=== PATIENT | female | born 1970 | race Caucasian/White ===

== ENCOUNTER 2017-02-11 00:16 | Observation (INO) | payer OTHER ==
--- NOTE | 2017-02-11 01:03 | PDOC ---
History of Present Illness - History of Present Illness Initial Comments: 02/11/17 01:51 The patient is a 46 year old female, with no significant past medical history of anemia, who presents to the emergency department with headache, dizziness, and nausea lasting for a constant 4 hours today. The patient reports a similar experience about 2 weeks ago. She reports her last menstrual period was a month ago. She denies chest pain and shortness of breath. She denies fever, chills, nausea , vomit, diarrhea and constipation. She denies dysuria, frequency, urgency and hematuria. Allergies: NKDA <Mari Gallegos - Last Filed: 02/11/17 01:51> <Shaye Escamilla - Last Filed: 02/11/17 05:36> - General Chief Complaint: Headache Stated Complaint: DIZZINESS AND HEADACHE Time Seen by Provider: 02/11/17 01:02 Past History <Mari Gallegos - Last Filed: 02/11/17 01:51> - Past Medical History Suicide Attempt (Hx): No - Immunization History Td Vaccination: Yes Immunization Up to Date: Yes - Psycho/Social/Smoking Cessation Hx Anxiety: No Suicidal Ideation: No Smoking Status: No Smoking History: Never smoked Years of Tobacco Use: 0 Have you smoked in the past 12 months: No Number of Cigarettes Smoked Daily: 0 Cigars Per Day: 0 Information on smoking cessation initiated: No Hx Alcohol Use: Yes (occasional) Substance Use Type: None <Shaye Escamilla - Last Filed: 02/11/17 05:36> - Past Medical History Allergies/Adverse Reactions: Allergies Allergy/AdvReac Type Severity Reaction Status Date / Time No Known Allergies Allergy Verified 02/11/17 00:55 Home Medications: Ambulatory Orders No Home Medications 0 dose .ROUTE KYDICT 07/25/13 Review of Systems - Review of Systems Able to Perform ROS?: Yes Comments:: 02/11/17 01:52 GENERAL/CONSTITUTIONAL: No fever or chills. No weakness. HEAD, EYES, EARS, NOSE AND THROAT: No change in vision. No ear pain or discharge. No sore throat. CARDIOVASCULAR: No chest pain or shortness of breath. RESPIRATORY: No cough, wheezing, or hemoptysis. GASTROINTESTINAL: (+) nausea, No vomiting, diarrhea or constipation. GENITOURINARY: No dysuria, frequency, or change in urination. MUSCULOSKELETAL: No joint or muscle swelling or pain. No neck or back pain. SKIN: No rash NEUROLOGIC: (+) headache and vertigo, No loss of consciousness, or change in strength/sensation. ENDOCRINE: No increased thirst. No abnormal weight change. HEMATOLOGIC/LYMPHATIC: No anemia, easy bleeding, or history of blood clots. ALLERGIC/IMMUNOLOGIC: No hives or skin allergy. <Mari Gallegos - Last Filed: 02/11/17 01:51> *Physical Exam - Vital Signs Last Vital Signs Temp Pulse Resp BP Pulse Ox 98 F 80 18 113/81 100 02/11/17 00:53 02/11/17 00:53 02/11/17 00:53 02/11/17 00:53 02/11/17 00:53 - Physical Exam Comments: 02/11/17 01:52 GENERAL: Awake, alert, and fully oriented, in no acute distress HEAD: No signs of trauma EYES: PERRLA, EOMI, sclera anicteric, conjunctiva clear ENT: Auricles normal inspection, hearing grossly normal, nares patent, oropharynx clear without exudates. Moist mucosa NECK: Normal ROM, supple, no lymphadenopathy, JVD, or masses LUNGS: Breath sounds equal, clear to auscultation bilaterally. No wheezes, and no crackles HEART: Regular rate and rhythm, normal S1 and S2, no murmurs, rubs or gallops ABDOMEN: Soft, nontender, normoactive bowel sounds. No guarding, no rebound. No masses EXTREMITIES: Normal range of motion, no edema. No clubbing or cyanosis. No cords, erythema, or tenderness NEUROLOGICAL: Cranial nerves II through XII grossly intact. Normal speech, normal gait SKIN: Warm, Dry, normal turgor, no rashes or lesions noted. <Mari Gallegos - Last Filed: 02/11/17 01:51> - Vital Signs Last Vital Signs Temp Pulse Resp BP Pulse Ox 98 F 80 18 113/81 100 02/11/17 00:53 02/11/17 00:53 02/11/17 00:53 02/11/17 00:53 02/11/17 00:53 <Shaye Escamilla - Last Filed: 02/11/17 05:36> ED Treatment Course - LABORATORY CBC & Chemistry Diagram: 02/11/17 02:36 02/11/17 02:36 <Shaye Escamilla - Last Filed: 02/11/17 05:36> Medical Decision Making - Medical Decision Making 02/11/17 05:32 Pt is dizzy with symptomatic anemia. She will be admitted to the hospitalist. Her PMD is Aimee Rosen who admits to the hospitalist. Pt has a BHCG of 93; pt was unaware that she is . She doesn't want to keep the fetus she states. However at this time, we will cancel head CT and not order CXR. Pt also smells of alcohol; alcohol level has not been completed, as we do not have the reagent in our lab; it will be followed up on the floor. Pt accepted by Dr. Post, hospitalist. <Shaye Escamilla - Last Filed: 02/11/17 05:36> *DC/Admit/Observation/Transfer - Attestations Scribe Attestion: 02/11/17 01:52 Documentation prepared by Mari Gallegos, acting as medical imaging director for Shaye Escamilla MD <Mari Gallegos - Last Filed: 02/11/17 01:51> - Discharge Dispostion Admit: Yes <Shaye Escamilla - Last Filed: 02/11/17 05:36> Diagnosis at time of Disposition: Dizziness, Anemia, - Discharge Dispostion Condition at time of disposition: Guarded - Referrals Referrals: Dianna Carnes MD [Primary Care Provider] -
[2017-02-11] MEDS ORDERED: MECLIZINE HCL 25 MG TABLET (FP) PO ONE (01:48)
[2017-02-11] MEDS ORDERED: ONDANSETRON 4 MG/2 ML VIAL IVPB ONE (01:49)
[2017-02-11] MEDS ORDERED: ACETAMINOPHEN/CAFFEINE/BUTALBITAL 1 TAB PO ONE (01:50)
[2017-02-11] MEDS ORDERED: ACETAMINOPHEN/CAFFEINE/BUTALBITAL 1 TAB ONE (01:56)
[2017-02-11] MEDS ORDERED: MECLIZINE HCL 25 MG TABLET (FP) ONE (01:59)
[2017-02-11 02:44] LABS: EOSINOPHIL 0.7 % (0-4.5); MCHC 29.9 g/dl (32.0-36.0); MEAN CELL VOLUME 66.4 fl (80-96); MEAN PLT VOLUME 8.7 fl (7.5-11.1); NEUTROPHILS 73.3 % (42.8-82.8); PLATELET COUNT 354 K/MM3 (134-434); WHITE BLOOD COUNT 8.1 K/mm3 (4.0-10.0)
[2017-02-11 02:47] LABS: MCH 19.8 pg (25.7-33.7)
[2017-02-11] MEDS: SODIUM CHLORIDE 0.9% 500 ML INFUS.BAG IV ONE ×2 (02:52→04:26)
[2017-02-11 03:15] LABS: ALBUMIN 3.6 g/dl (3.4-5.0); ALK PHOS 41 U/L (45-117); ANION GAP 14 (8-16); BILIRUBIN,TOTAL 0.1 mg/dL (0.2-1.0); CALCIUM 8.3 mg/dL (8.5-10.1); CO2 21 mmol/L (21-32); CREATININE 0.4 mg/dL (0.55-1.02); GLUCOSE,RANDOM 111 mg/dL (74-106); SGPT/ALT 16 U/L (12-78); TOT PROT 6.7 g/dl (6.4-8.2)
[2017-02-11 03:17] LABS: SGOT/AST 19 U/L (15-37)
[2017-02-11 03:24] LABS: ANISOCYTOSIS 2+; HYPOCHROMIA 2+; MICROCYTOSIS 2+; PLATELET COMMENT2 NO CLOTTING DETECTED; PLATELET ESTIMATE ADEQUATE (NORMAL); POIKILOCYTOSIS 2+; POLYCHROMASIA 1+; SPHEROCYTE 1+
[2017-02-11 04:44] LABS: URINE APPEARANCE CLEAR; URINE BILIRUBIN NEGATIVE (NEGATIVE); URINE BLOOD NEGATIVE (NEGATIVE); URINE COLOR COLORLESS; URINE GLUCOSE (UA) NEGATIVE (NEGATIVE); URINE KETONE TRACE (NEGATIVE); URINE LEUK ESTERASE NEGATIVE (NEGATIVE); URINE NITRITE NEGATIVE (NEGATIVE); URINE PROTEIN NEGATIVE (NEGATIVE); URINE UROBILINOGEN NEGATIVE E.U./dl (0.2-1.0)
--- NOTE | 2017-02-11 06:01 | HP ---
PCP: Dianna Hernandez CHIEF COMPLAINT: Dizziness HISTORY OF PRESENT ILLNESS: This is a 46-year-old woman who comes to the ER complaining of nausea, dizziness and headache. She says she had been drinking at her daughter's baby shower yesterday. Overnight, she developed nausea, dizziness and headache. She smells of alcohol. She denies alcohol abuse, fever, chills, chest pain, shortness of breath, vomiting, melena, rectal bleeding, hematuria. She has a history of iron deficiency anemia and is unable to take oral iron because of side effects. She has not seen a physician in about one year. She does not know her baseline hemoglobin. She has regular periods and says her last was one month ago. She has no appetite and has lost 5 lbs over the past year. She has never had an EGD or colonoscopy. PAST MEDICAL HISTORY Anemia PAST SURGICAL HISTORY Denies Allergies No Known Allergies Allergy (Verified 02/11/17 00:55) HOME MEDICATIONS 3 Medication Instructions Recorded No Home Medications 0 dose .ROUTE UTDICT 07/25/13 Social History: Smoking: Denies Alcohol: Social Drugs: Denies Recent Travel: No Family History: Unremarkable REVIEW OF SYSTEMS CONSTITUTIONAL: Present: loss of appetite, weight loss. Absent: fever, chills, diaphoresis, generalized weakness, malaise HEENT: Absent: rhinorrhea, nasal congestion, throat pain, throat swelling, difficulty swallowing, mouth swelling, ear pain, eye pain, visual changes CARDIOVASCULAR: Present: lightheadedness. Absent: chest pain, syncope, palpitations, peripheral edema RESPIRATORY: Absent: cough, shortness of breath, dyspnea with exertion, orthopnea, wheezing, stridor, hemoptysis GASTROINTESTINAL: Present: epigastric pain, nausea. Absent: abdominal distension, vomiting, diarrhea, constipation, melena, hematochezia GENITOURINARY: Absent: dysuria, frequency, urgency, hesitancy, hematuria, flank pain MUSCULOSKELETAL: Absent: myalgia, arthralgia, joint swelling, back pain, neck pain SKIN: Absent: rash, itching, pallor HEMATOLOGIC/IMMUNOLOGIC: Absent: easy bleeding, easy bruising, lymphadenopathy, frequent infections ENDOCRINE: Present: unexplained weight loss. Absent: unexplained weight gain, heat intolerance, cold intolerance NEUROLOGIC: Present: headache, dizziness. Absent: focal weakness, paresthesias , unsteady gait, seizure, mental status changes, bladder or bowel incontinence PSYCHIATRIC: Absent: anxiety, depression, suicidal or homicidal ideation, hallucinations. PHYSICAL EXAMINATION Vital Signs - 24 hr 02/11/17 02/11/17 00:53 03:26 Temperature 98 F Pulse Rate 80 Pulse Rate [ 74 Right Radial] Respiratory 18 20 Rate Blood Pressure 113/81 Blood Pressure 100/63 [Right Arm] O2 Sat by Pulse 100 100 Oximetry (%) GENERAL: Awake, alert, in no acute distress. Alcohol on breath. HEAD: Normal with no signs of trauma. EYES: Pupils equal, round and reactive to light, extraocular movements intact, sclerae anicteric, conjunctivae pale. EARS, NOSE, THROAT: Ears normal, nares patent, oropharynx clear without exudates. Moist mucous membranes. NECK: Normal range of motion, supple without lymphadenopathy, JVD, or masses. LUNGS: Breath sounds equal, clear to auscultation bilaterally. No wheezes, and no crackles. No accessory muscle use. HEART: Regular rate and rhythm, normal S1 and S2 without murmur, rub or gallop. ABDOMEN: Soft, (+) epigastric tenderness, not distended, normoactive bowel sounds, no guarding, no rebound, no masses. No hepatomegaly or splenomegaly. MUSCULOSKELETAL: Normal range of motion at all joints. No bony deformities or tenderness. No CVA tenderness. UPPER EXTREMITIES: 2+ pulses, warm, well-perfused. No cyanosis. No clubbing. No peripheral edema. LOWER EXTREMITIES: 2+ pulses, warm, well-perfused. No calf tenderness. No peripheral edema. NEUROLOGICAL: Cranial nerves II-XII intact. Normal speech. Gait not observed. PSYCHIATRIC: Cooperative. Good eye contact. Appropriate mood and affect. SKIN: Warm, dry, normal turgor, no rashes or lesions noted, normal capillary refill. Laboratory Results - last 24 hr 02/11/17 02/11/17 02/11/17 02:35 02:36 02:36 WBC 8.1 RBC 3.68 Hgb 7.3 L D Hct 24.4 L D MCV 66.4 L MCHC 29.9 L RDW 19.0 H Plt Count 354 D MPV 8.7 Neutrophils % 73.3 Lymphocytes % 19.7 Monocytes % 5.3 Eosinophils % 0.7 D Basophils % 1.0 Differential Comment Slide scanned Platelet Estimate Adequate Platelet Comment No clotting detected Polychromasia 1+ Hypochromic-Microcytic 2+ Poikilocytosis 2+ Anisocytosis 2+ Microcytosis 2+ Spherocytes 1+ Sodium 142 Potassium 3.8 Chloride 107 Carbon Dioxide 21 Anion Gap 14 BUN 6 L D Creatinine 0.4 L D Creat Clearance w eGFR > 60 Random Glucose 111 H D Calcium 8.3 L Total Bilirubin 0.1 L D AST 19 D ALT 16 D Alkaline Phosphatase 41 L D Total Protein 6.7 Albumin 3.6 Beta HCG, Quant 93.9 Serum , Qual Urine Color Urine Appearance Urine pH Ur Specific [place] Urine Protein Urine Glucose (UA) Urine Ketones Urine Blood Urine Nitrite Urine Bilirubin Urine Urobilinogen Ur Leukocyte Esterase Urine HCG, Qual 02/11/17 02/11/17 02:36 04:20 WBC RBC Hgb Hct MCV MCHC RDW Plt Count MPV Neutrophils % Lymphocytes % Monocytes % Eosinophils % Basophils % Differential Comment Platelet Estimate Platelet Comment Polychromasia Hypochromic-Microcytic Poikilocytosis Anisocytosis Microcytosis Spherocytes Sodium Potassium Chloride Carbon Dioxide Anion Gap BUN Creatinine Creat Clearance w eGFR Random Glucose Calcium Total Bilirubin AST ALT Alkaline Phosphatase Total Protein Albumin Beta HCG, Quant Serum , Qual Positive Urine Color Colorless Urine Appearance Clear Urine pH 5.0 Ur Specific [place] 1.005 Urine Protein Negative Urine Glucose (UA) Negative Urine Ketones Trace H Urine Blood Negative Urine Nitrite Negative Urine Bilirubin Negative Urine Urobilinogen Negative Ur Leukocyte Esterase Negative Urine HCG, Qual Positive ASSESSMENT/PLAN: This is a 46-year-old woman with a history of iron-deficiency anemia who comes to the ER with nausea, dizziness and headache after drinking at a republican. She was found to have hemoglobin 7.3, serum B-hCG 93.9. She is being placed in observation now for further evaluation and treatment. 1. Nausea, dizziness, headache - Likely secondary to alcohol intoxication - Doubt secondary to anemia as she appears to be compensated with no tachycardia, fatigue, exertional dyspnea - IV fluid, IV Pepcid, Reglan as needed 2. Iron-deficiency anemia - Patient says she cannot tolerate oral iron - No evidence of active bleeding - Check stool occult blood, iron studies - Monitor hemoglobin - transfuse if <7.0 or if remains symptomatic 3. Alcohol intoxication - IV fluid 4. 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 - New Patient This patient is new to me today: Yes Date on this admission: 02/11/17 - Critical Care Critical Care patient: No
[2017-02-11] MEDS: SODIUM CHLORIDE 1,000 ML IV SCH ×2 (06:43→23:06)
--- NOTE | 2017-02-11 08:24 | PN ---
Progress Note (short form) - Note Progress Note: Called by ER for pos quant of 93. Spoke with nia in er. No intervention needed. Repeat beta in 2 days.
[2017-02-11 09:56] LABS: MCHC 29.5 g/dl (32.0-36.0); MEAN CELL VOLUME 66.4 fl (80-96); MEAN PLT VOLUME 7.9 fl (7.5-11.1); PLATELET COUNT 305 K/MM3 (134-434); RDW 18.5 % (11.6-15.6); WHITE BLOOD COUNT 6.9 K/mm3 (4.0-10.0)
[2017-02-11 09:59] LABS: MCH 19.6 pg (25.7-33.7)
[2017-02-11 10:26] LABS: CALCIUM 7.1 mg/dL (8.5-10.1); CREATININE 0.4 mg/dL (0.55-1.02); MAGNESIUM 1.9 mg/dL (1.8-2.4)
[2017-02-11 10:27] LABS: FERRITIN 1.867 ng/ml (6.9-282.5)
[2017-02-11] MEDS: FAMOTIDINE 20 MG/50 ML IVPB 50 ML IVPB SCH ×2 (11:40→22:06)
[2017-02-11] MEDS ORDERED: FAMOTIDINE 20 MG/50 ML IVPB 50 ML IVPB ONE (11:43)
--- NOTE | 2017-02-11 12:04 | PN ---
Physical Exam: SUBJECTIVE: Patient seen and examined. She denies any shortness of breath only feels weak and dizzy with ambulation. OBJECTIVE: Denies any chest pain, shortness of breath will get 2 units of PRBC - pt in agreement Awaiting bed in ER - now transferred to [facility] surg Patient is aware that she is and states that she has been trying to get via fertility treatments. Vital Signs Period Temp Pulse Resp BP Sys/Rogers Pulse Ox Last 24 Hr 98.1 F 68-75 18-18 116-120/58-58 98-100 GENERAL: The patient is awake, alert, and fully oriented, in no acute distress. HEAD: Normal with no signs of trauma. EYES: PERRL, extraocular movements intact, sclera anicteric, conjunctiva clear. No ptosis. ENT: Ears normal, nares patent, oropharynx clear without exudates, moist mucous membranes. NECK: Trachea midline, full range of motion, supple. LUNGS: Breath sounds equal, clear to auscultation bilaterally, no wheezes, no crackles, no accessory muscle use. HEART: Regular rate and rhythm, S1, S2 without murmur, rub or gallop. ABDOMEN: Soft, nontender, nondistended, normoactive bowel sounds, no guarding, no rebound, no hepatosplenomegaly, no masses. EXTREMITIES: no edema. NEUROLOGICAL: Normal speech, gait not observed. PSYCH: Normal mood, normal affect. SKIN: Warm, dry, normal turgor, no rashes or lesions noted Laboratory Results - last 24 hr 02/11/17 02/11/17 02/11/17 09:40 09:40 09:40 WBC 6.9 RBC 3.35 L Hgb 6.6 L* Hct 22.2 L MCV 66.4 L MCHC 29.5 L RDW 18.5 H Plt Count 305 MPV 7.9 Sodium 145 Potassium 3.6 Chloride 114 H Carbon Dioxide 20 L Anion Gap 11 BUN 5 L Creatinine 0.4 L Random Glucose 84 D Calcium 7.1 L Phosphorus 2.0 L Magnesium 1.9 Ferritin 1.867 L Cancelled Active Medications Generic Name Dose Route Start Last Admin Trade Name Freq PRN Reason Stop Dose Admin Acetaminophen 650 mg 02/11/17 06:05 Tylenol - PO Q4H PRN FEVER OR PAIN Famotidine/Sodium Chloride 50 mls @ 100 mls/hr 02/11/17 10:00 02/11/17 11:40 Pepcid 20 Mg Premixed Ivpb - IVPB 100 mls/hr BID MARLEE Administration Sodium Chloride 1,000 mls @ 125 mls/hr 02/11/17 06:15 02/11/17 06:43 Normal Saline - IV 125 mls/hr ASDIR MARLEE Administration Metoclopramide HCl 10 mg 02/11/17 06:05 Reglan Injection - IVPB Q6H PRN NAUSEA AND/OR VOMITING ASSESSMENT/PLAN: The patient is a 46 year old female, with no significant past medical history of anemia, who presents to the emergency department with headache, dizziness, and nausea lasting for a constant 4 hours today. The patient reports a similar experience about 2 weeks ago. She reports her last menstrual period was a month ago. She denies chest pain and shortness of breath. She denies dysuria, frequency, urgency and hematuria. In the ED, her hmg was 7.3, serum B-hCG 93.9. Her morning hmg dropped further to 6.9. 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 She is not in having any withdrawal symptoms other than headache Will monitor for now She denies any visual, auditory or tactile hallucinations, monitor for now Continue IVF Counseled of over use of alcohol now that she is Reglan/Pepcid as needed GI: Nausea/dizziness/headache - improving A/P: may be due to acute alcohol intoxication vs. 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 STEEL CUTTER following Monitor for any meds that are not safe during F.E.N. Fluids: NS @ 125 Electrolytes: monitor bmp Nutrition: as tolerated Prophylaxis: GI: Zofran, Reglan DVT: deferred, hmg log, SCDs Visit type - Emergency Visit Emergency Visit: Yes ED Registration Date: 02/11/17 Care time: The patient presented to the Emergency Department on the above date and was hospitalized for further evaluation of their emergent condition. - New Patient This patient is new to me today: Yes Date on this admission: 03/02/17 - Critical Care Critical Care patient: No - Discharge Referral Referred to [facility] Med P.C.: No
[2017-02-11 14:06] VITALS: BMI 20.9
[2017-02-11] MEDS ORDERED: METOCLOPRAMIDE HCL INJECTION 10 MG/2 ML VIAL ONE (15:35)
[2017-02-11] MEDS ORDERED: ACETAMINOPHEN 325 MG TABLET (FP) ONE (15:38)
[2017-02-11] MEDS: ACETAMINOPHEN 325 MG TABLET (FP) PO PRN ×2 (15:41→21:46)
[2017-02-11] MEDS: METOCLOPRAMIDE HCL INJECTION 10 MG/2 ML VIAL IVPB PRN (22:41)
[2017-02-12] MEDS: METOCLOPRAMIDE HCL INJECTION 10 MG/2 ML VIAL IVPB PRN (06:05)
[2017-02-12 07:23] LABS: BASOPHIL 0.7 % (0-2.0); EOSINOPHIL 4.3 % (0-4.5); MCH 22.4 pg (25.7-33.7); MCHC 31.4 g/dl (32.0-36.0); MEAN CELL VOLUME 71.4 fl (80-96); NEUTROPHILS 56.8 % (42.8-82.8); PLATELET COUNT 276 K/MM3 (134-434); RDW 21.5 % (11.6-15.6); WHITE BLOOD COUNT 6.9 K/mm3 (4.0-10.0)
[2017-02-12 07:53] LABS: CALCIUM 7.3 mg/dL (8.5-10.1)
[2017-02-12 07:59] LABS: ALK PHOS 36 U/L (45-117); ANION GAP 11 (8-16); BILIRUBIN,TOTAL 0.6 mg/dL (0.2-1.0); CO2 21 mmol/L (21-32); CREATININE 0.5 mg/dL (0.55-1.02); GLUCOSE,RANDOM 91 mg/dL (74-106); SGOT/AST 12 U/L (15-37); SGPT/ALT 14 U/L (12-78); TOT PROT 5.6 g/dl (6.4-8.2)
[2017-02-12] MEDS ORDERED: POTASSIUM CHLORIDE TABS 20 MEQ TABLET.ER (FP) PO ONE (08:07)
[2017-02-12 08:08] LABS: SERUM IRON 8 ug/dL (27-159); TOTAL IRON BINDING CAPACITY 350 ug/dL (250-450); UIBC 342 ug/dL (131-425)
--- NOTE | 2017-02-12 09:29 | DS ---
Physical Exam: SUBJECTIVE: Patient seen and examined. States she feels better, dizziness is better but still having some dizziness. OBJECTIVE: Pt states she still has some dizziness but observed her walking to the bathroom and back with a steady gait dizziness may be due to ETOH intox and Counseled pt on ETOH cessation and to follow up with Dr. Beard who is her fertility specialist For discharge today h/h stable, to follow up with Dr. Leon, toll line mechanic as pt has received blood transfusions in the past. CIWA score 1 potassium repleted with [id number] x 1 Vital Signs Period Temp Pulse Resp BP Sys/Rogers Pulse Ox Last 24 Hr 98.1 F-99.5 F 56-84 18-18 96-114/55-75 98-100 PHYSICAL EXAM GENERAL: The patient is awake, alert, and fully oriented, in no acute distress. HEAD: Normal with no signs of trauma. EYES: PERRL, extraocular movements intact, sclera anicteric, conjunctiva clear. ENT: Ears normal, nares patent, oropharynx clear without exudates, moist mucous membranes. NECK: Trachea midline, full range of motion, supple. LUNGS: Breath sounds equal, clear to auscultation bilaterally, no wheezes, no crackles, no accessory muscle use. HEART: Regular rate and rhythm, ABDOMEN: Soft, nontender, nondistended, normoactive bowel sounds, no guarding, no rebound, no hepatosplenomegaly, no masses. EXTREMITIES: 2+ pulses, warm, well-perfused, no edema. NEUROLOGICAL: Normal speech, steady gait,.PSYCH: counseled on alcohol intoxication SKIN: Warm, dry, normal turgor, no rashes or lesions noted. CIWA score 1: mild nausea. LABS Laboratory Results - last 24 hr 02/11/17 02/11/17 02/11/17 09:40 09:40 09:40 WBC 6.9 RBC 3.35 L Hgb 6.6 L* Hct 22.2 L MCV 66.4 L MCHC 29.5 L RDW 18.5 H Plt Count 305 MPV 7.9 Neutrophils % Lymphocytes % Monocytes % Eosinophils % Basophils % Retic Count Sodium 145 Potassium 3.6 Chloride 114 H Carbon Dioxide 20 L Anion Gap 11 BUN 5 L Creatinine 0.4 L Creat Clearance w eGFR Random Glucose 84 D Calcium 7.1 L Phosphorus 2.0 L Magnesium 1.9 Iron 8 L TIBC 350 Iron Saturation 2 L Ferritin 1.867 L Total Bilirubin AST ALT Alkaline Phosphatase Total Protein Albumin Blood Type Antibody Screen Crossmatch 02/11/17 02/11/17 02/12/17 09:40 14:05 05:35 WBC RBC Hgb Hct MCV MCHC RDW Plt Count MPV Neutrophils % Lymphocytes % Monocytes % Eosinophils % Basophils % Retic Count Sodium 143 Potassium 3.4 L Chloride 111 H Carbon Dioxide 21 Anion Gap 11 BUN 4 L Creatinine 0.5 L D Creat Clearance w eGFR > 60 Random Glucose 91 Calcium 7.3 L Phosphorus Magnesium Iron TIBC Iron Saturation Ferritin Cancelled Total Bilirubin 0.6 D AST 12 L D ALT 14 Alkaline Phosphatase 36 L Total Protein 5.6 L Albumin 3.0 L Blood Type O POSITIVE Antibody Screen Negative Crossmatch See Detail 02/12/17 02/12/17 05:35 05:35 WBC 6.9 RBC 4.21 D Hgb 9.4 L D Hct 30.0 L D MCV 71.4 L MCHC 31.4 L RDW 21.5 H D Plt Count 276 MPV 9.0 D Neutrophils % 56.8 D Lymphocytes % 29.9 D Monocytes % 8.3 Eosinophils % 4.3 D Basophils % 0.7 Retic Count 1.40 Sodium Potassium Chloride Carbon Dioxide Anion Gap BUN Creatinine Creat Clearance w eGFR Random Glucose Calcium Phosphorus Magnesium Iron TIBC Iron Saturation Ferritin Total Bilirubin AST ALT Alkaline Phosphatase Total Protein Albumin Blood Type Antibody Screen Crossmatch HOSPITAL COURSE: Date of Admission:02/11/17 Date of Discharge: 02/12/17 The patient is a 46 year old female, with no significant past medical history of anemia, who presents to the emergency department with headache, dizziness, and nausea. The patient reports a similar experience about 2 weeks ago. She reports her last menstrual period was a month ago. She denies chest pain and shortness of breath. She denies dysuria, frequency, urgency and hematuria. In the ED, her hmg was 7.3, serum B-hCG 93.9. Her morning hmg dropped further to 6.9. 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 She is not in having any withdrawal symptoms other than headache She denies any visual, auditory or tactile hallucinations Continue IVF, Counseled of over use of alcohol now that she is Reglan/Pepcid as needed GI: Nausea/dizziness/headache - improved A/P: Denies nausea, states she is hungry, no headache, some dizziness which may be due to ETOH abuse and/or . 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 INSTANT PRINTER OPERATOR following Monitor for any meds that are not safe during Started on vitamins on d/c to follow up with Dr. Beard @ [facility], fertility specialist Disposition: Stable for d/c, counseled on ETOH abuse during . Pt to follow up with toll line mechanic for iron def. anemia. Start on vitamins. Minutes to complete discharge: 45 Discharge Summary Reason For Visit: ANEMIA DIZZINESS Current Active Problems Alcohol intoxication (Acute) Dizziness (Acute) Headache (Acute) (Acute) Iron deficiency anemia (Chronic) Condition: Improved - Instructions Diet, Activity, Other Instructions: Please see Dr. Leon for follow up on your iron deficiency anemia. Pls see your PCP within 3 to 5 days after discharge. Please return to the ER with any worse or persistent symptoms. Please follow up with Dr. Beard, your fertility specialist. Please start vitamins, they can be purchased over the counter. Jennifer Ibarra COMMUNICATIONS EXECUTIVE [phone] Referrals: Nikhil Leon MD [Staff Physician] - Dianna Carnes MD [Primary Care Provider] - Disposition: HOME - Home Medications Comprehensive Discharge Medication List: Ambulatory Orders No Home Medications 0 dose .ROUTE UTDICT 07/25/13 This patient is new to me today: Yes Date on this admission: 02/12/17 Emergency Visit: Yes ED Registration Date: 02/11/17 Care time: The patient presented to the Emergency Department on the above date and was hospitalized for further evaluation of their emergent condition. Critical Care patient: No - Discharge Referral Referred to [facility] Med P.C.: No
[2017-02-12] MEDS: FAMOTIDINE 20 MG/50 ML IVPB 50 ML IVPB SCH (09:50)
[2017-02-12] MEDS ORDERED: PRENATAL VITAMINS W/ FOLIC ACID TABLET (FP) PO SCH (10:00)
[2017-02-12] MEDS: ACETAMINOPHEN 325 MG TABLET (FP) PO PRN (10:06)
--- NOTE | 2017-02-12 17:45 | EKG ---
Test Reason : Blood Pressure : / mmHG Vent. Rate : 076 BPM Atrial Rate : 076 BPM P-R Int : 134 ms QRS Dur : 092 ms QT Int : 412 ms P-R-T Axes : 062 055 048 degrees QTc Int : 463 ms NORMAL SINUS RHYTHM NORMAL ECG WHEN COMPARED WITH ECG OF 16-JAN-2011 17:11, NO SIGNIFICANT CHANGE WAS FOUND Confirmed by SAMIR REED MD ([id number]) on 02/12/2017 5:44:53 PM Referred By: Confirmed By:SAMIR REED MD
[2017-02-12 17:53] VITALS: BP 114/68; PULSE 61; TEMP 99.2
== END 2017-02-12 19:21 | disposition home or self-care (01) ==
LOC: JER 00:16 → JERBED 05:37 → J5S 16:30
PROVIDERS: ADMIT Internal Medicine; ATTEND Nurse Practitioner Family
PROC: 3E033GC Introduction of Other Therapeutic Substance into Peripheral Vein, Percutaneous Approach (ICD-10-PCS; principal; 2017-02-11)
PROC: 3E0337Z Introduction of Electrolytic and Water Balance Substance into Peripheral Vein, Percutaneous Approach (ICD-10-PCS; 2017-02-11)
DX: F10.129 Alcohol abuse with intoxication, unspecified (principal); D50.9 Iron deficiency anemia, unspecified; Z33.1 Pregnant state, incidental; R42 Dizziness and giddiness; R11.2 Nausea with vomiting, unspecified; R51 Headache
CPT/HCPCS: 36415; 36430; 80048; 80053; 80307; 81003; 82728; 83540; 83550; 83735; 84100; 84702; 84703; 85025; 85027; 85044; 86850; 86900; 86901; 86922; 93005; 93010; 99285-25; G0378; P9038; P9058

== ENCOUNTER 2018-01-14 17:56 | Emergency (ER) | payer OTHER ==
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
[2018-01-14 18:28] VITALS: BP 114/80; PULSE 73; TEMP 98.4; BMI 20.9
--- NOTE | 2018-01-14 20:45 | PDOC ---
*Physical Exam - Vital Signs Last Vital Signs Temp Pulse Resp BP Pulse Ox 98.4 F 73 20 114/80 100 01/14/18 17:56 01/14/18 17:56 01/14/18 17:56 01/14/18 17:56 01/14/18 17:56 ED Treatment Course - ADDITIONAL ORDERS Additional order review: Laboratory Results 01/14/18 18:33 Urine HCG, Qual Negative Progress Note - Progress Note Progress Note: Care of this patient was transferred to nd from Dr. marii allred at 1900 hrs. Patient is a 47-year-old female who fell about 3 days ago and has multiple contusions of her face. Patient has a CT of her head and facial bones pending. 20:45 CT of head is negative for any acute intercranial pathology CT of the facial bones does show a minimally displaced fracture of the left maxillary sinus with an overlying hematoma there is no fluid in the sinus. Patient was told to take Tylenol or Motrin for pain and follow-up with an ENT doctor Patient discharged home *DC/Admit/Observation/Transfer Diagnosis at time of Disposition: Contusion, multiple sites Fracture of maxillary sinus Qualifiers: Encounter type: initial encounter Fracture type: closed Qualified Code(s): S02.401A - Maxillary fracture, unspecified side, initial encounter for closed fracture - Discharge Dispostion Disposition: HOME - Referrals Referrals: Tin Gonzalez MD [Staff Physician] - - Patient Instructions Additional Instructions: Take ibuprofen or Aleve as directed on the bottle and as needed for the pain. Follow-up with an ENT doctor call Dr. Bautista for an appointment. Return to the emergency department immediately with ANY new, persistent or worsening symptoms. Continue any medications as previously prescribed by your physician. You should follow up with your primary doctor as soon as possible regarding today's emergency department visit. . Please make sure your doctor reviews the results of your emergency evaluation. Thank you for coming to the Emergency Department today for your care. It was a pleasure to see you today. Please note that your evaluation is INCOMPLETE until you follow-up with your doctor. - Post Discharge Activity
== END 2018-01-14 20:52 | disposition home or self-care (01) ==
LOC: FER 17:56
DX: S00.532A Contusion of oral cavity, initial encounter (principal); S02.401A Maxillary fracture, unspecified side, initial encounter for closed fracture; W18.39XA Other fall on same level, initial encounter; Y93.89 Activity, other specified; Y92.9 Unspecified place or not applicable
CPT/HCPCS: 70450-TC; 70486-TC; 84703; 99282-25

== ENCOUNTER 2018-08-15 18:53 | Emergency (ER) | payer OTHER ==
[2018-08-15 18:57] VITALS: BMI 21.9
--- NOTE | 2018-08-15 18:58 | PDOC ---
Rapid Medical Evaluation Chief Complaint: Lightheaded Time Seen by Provider: 08/15/18 18:58 Medical Evaluation: Allergies Allergy/AdvReac Type Severity Reaction Status Date / Time No Known Allergies Allergy Verified 08/15/18 18:55 Vital Signs Temp Pulse Resp BP Pulse Ox 100.3 F H 106 H 18 135/88 100 08/15/18 18:55 10 18:55 10 18:55 08/15/18 18:55 08/15/18 18:55 08/15/18 18:58 I have performed a brief in-person evaluation of this patient Patient presents with a chief complaint of lightheadedness, headache, vomiting , diarrhea Pertinent physical exam findings: NAD, unlabored breathing, temp 100.3, tachycardic I have ordered the following: CBC, CMP, PT, Type and screen, UA, UCG, IV insertion, IV fluids Patient will proceed to the ED for further medical evaluation 08/15/18 19:00 Discharge Disposition - Diagnosis Vomiting - Referrals - Patient Instructions - Post Discharge Activity
[2018-08-15] MEDS ORDERED: SODIUM CHLORIDE 0.9% 500 ML INFUS.BAG IV ONE ×2 (19:02→23:57)
[2018-08-15 19:32] LABS: HCG,QUALITATIVE URINE Negative
[2018-08-15 19:39] LABS: URINE APPEARANCE CLOUDY; URINE BILIRUBIN NEGATIVE (<2.0 mg/dL); URINE COLOR LTYELLOW; URINE GLUCOSE (UA) NEGATIVE (NEGATIVE); URINE KETONE NEGATIVE (NEGATIVE); URINE LEUK ESTERASE 3+ (NEGATIVE); URINE NITRITE NEGATIVE (NEGATIVE); URINE PROTEIN NEGATIVE (NEGATIVE)
[2018-08-15 19:42] LABS: EPI CELLS MODERATE /HPF (FEW); YEAST RARE
--- NOTE | 2018-08-15 21:15 | PDOC ---
History of Present Illness - General Chief Complaint: Lightheaded Stated Complaint: COLD SYMPTOMS Time Seen by Provider: 08/15/18 18:58 - History of Present Illness Initial Comments: The patient is a 47F w/ no reported PMH who presents for evaluation of 3-4d of HOOVER, nausea, vomiting x3, dirrhea x2, and subjective fevers. The patient was also seen yesterday and had a UA with evidence of UTI. The patient also reports intermittent RUQ abdominal pain the is sharp/achy, does not radiate, and has not noticed anything that has made it better or worse. She took Tylenol at home for her symptoms with little relief. She denies vision changes, chest pain, shortness of breath, or changes in sensation 08/15/18 22:38 Past History - Past Medical History Allergies/Adverse Reactions: Allergies Allergy/AdvReac Type Severity Reaction Status Date / Time No Known Allergies Allergy Verified 08/15/18 18:55 Home Medications: Ambulatory Orders Ibuprofen [Motrin -] 600 mg PO TID 01/14/18 Anemia: Yes COPD: No - Surgical History Appendectomy: Yes - Immunization History Td Vaccination: Yes Immunization Up to Date: Yes - Suicide/Smoking/Psychosocial Hx Smoking Status: No Smoking History: Never smoked Years of Tobacco Use: 0 Have you smoked in the past 12 months: No Number of Cigarettes Smoked Daily: 0 Cigars Per Day: 0 Hx Alcohol Use: Yes (occasional) Drug/Substance Use Hx: No Substance Use Type: None Review of Systems - Review of Systems Able to Perform ROS?: Yes Comments:: GENERAL/CONSTITUTIONAL: +subjective fevers. No weakness HEAD, EYES, EARS, NOSE AND THROAT: No change in vision. No ear pain or discharge. No sore throat CARDIOVASCULAR: No chest pain or shortness of breath RESPIRATORY: +productive cough w/ yellow sputum GASTROINTESTINAL: +NBNB V x2; +NB diarrhea x2 GENITOURINARY: No dysuria, frequency, or change in urination MUSCULOSKELETAL: No joint or muscle swelling or pain. No neck or back pain SKIN: No rash NEUROLOGIC: No headache, vertigo, loss of consciousness, or change in strength/ sensation ENDOCRINE: No increased thirst. No abnormal weight change HEMATOLOGIC/LYMPHATIC: No anemia, easy bleeding, or history of blood clots ALLERGIC/IMMUNOLOGIC: No hives or skin allergy 08/15/18 21:43 Is the patient limited Italian proficient: No *Physical Exam - Vital Signs Last Vital Signs Temp Pulse Resp BP Pulse Ox 100.3 F H 106 H 18 135/88 100 08/15/18 18:55 08/15/18 18:55 08/15/18 18:55 08/15/18 18:55 08/15/18 18:55 - Physical Exam Comments: GENERAL: Awake, alert, and fully oriented, in no acute distress HEAD: No signs of trauma, normocephalic, atraumatic EYES: PERRL, EOMI, sclera anicteric, conjunctiva clear ENT: Hearing grossly normal, nares patent, oropharynx clear without exudates. Moist mucosa NECK: Normal ROM, supple LUNGS: No distress, speaks full sentences, clear to auscultation bilaterally HEART: Regular rate and rhythm, normal S1 and S2, no murmurs appreciated, peripheral pulses normal and equal bilaterally ABDOMEN: Soft, mild RUQ ttp w/o rebound or guarding; normoactive bowel sounds. No guarding, no rebound EXTREMITIES : Normal inspection, Normal range of motion, no edema. No clubbing or cyanosis NEUROLOGICAL: Cranial nerves II through XII grossly intact. Normal speech, normal gait, no focal sensorimotor deficits SKIN: Warm, Dry 08/15/18 21:46 ED Treatment Course - LABORATORY CBC & Chemistry Diagram: 08/15/18 21:37 08/15/18 21:37 - ADDITIONAL ORDERS Additional order review: Laboratory Results 08/15/18 19:07 Urine Color Ltyellow Urine Appearance Cloudy Urine pH 6.0 Ur Specific [place] 1.020 Urine Protein Negative Urine Glucose (UA) Negative Urine Ketones Negative Urine Blood 1+ H Urine Nitrite Negative Urine Bilirubin Negative Urine Urobilinogen 2.0 H Ur Leukocyte Esterase 3+ H Urine WBC (Auto) 22 Urine RBC (Auto) 20-40 Ur Epithelial Cells Moderate Urine Yeast Rare Urine HCG, Qual Negative Medical Decision Making - Medical Decision Making The patient is a 47F who presents for evaluation of 3-4 days of subjective fevers, emesis, diarrhea, and LUQ abdominal pain. She also come in w/ a UA concerning of UTI ED Course: CMP, CBC, UA, Upreg, UCx CT A&P Ofirmev 1g IV once Hgb 8.7, near baseline, no need for transfusion at this time UA w/ evidence of UTI Consider stone v pyelo, pending CT 08/15/18 21:48 Patient endorses continued HOOVER and associated nausea -Reglan 10mg IV once 08/15/18 22:[address] Will give Rocephin 1g IV once for UTI Patient with symptomatic improvement s/p Reglan If CT w/o acute pathology, plan for D/C w/ Keflex PO 08/15/18 23:37 Patient continues to be tachycardic, will give an additional 1L NS I have transferred care of the patient to Dr. Mahmood and discussed the clinical presentation, work-up and ED course thus far. Dispo pending CT 08/16/18 00:05 *DC/Admit/Observation/Transfer Diagnosis at time of Disposition: Vomiting Qualifiers: Vomiting type: unspecified Vomiting Intractability: non-intractable Nausea presence: with nausea Qualified Code(s): R11.2 - Nausea with vomiting, unspecified UTI (urinary tract infection) Qualifiers: Urinary tract infection type: site unspecified Hematuria presence: with hematuria Qualified Code(s): N39.0 - Urinary tract infection, site not specified - Discharge Dispostion Condition at time of disposition: Improved Decision to Admit order: No - Referrals Referrals: Jose Miguel Prado PA [Primary Care Provider] - - Patient Instructions Printed Discharge Instructions: DI for Urinary Tract Infection (UTI) Additional Instructions: You were seen in the Emergency Department today for urinary tract infection. You were treat with one dose of antibiotics here and a prescription for antibiotics was sent to the pharmacy that you specified. Please take as directed. Please review the handouts provided at discharge. Follow up with your primary care physician within the next 1-3 days. Return to the Emergency Department if you develop fevers/chills, worsening pain , worsening symptoms, or any new/concerning symptoms. - Post Discharge Activity
[2018-08-15 21:46] LABS: BASO % 0.8 % (0-2.0); EOS % 3.7 % (0-4.5); HEMATOCRIT 28.6 % (32.4-45.2); HEMOGLOBIN 8.7 GM/dL (10.7-15.3); LYMPH % 9.6 % (8-40); MCH 21.5 pg (25.7-33.7); MCHC 30.3 g/dl (32.0-36.0); MEAN CELL VOLUME 70.8 fl (80-96); MEAN PLT VOLUME 8.9 fl (7.5-11.1); MONO % 8.2 % (3.8-10.2); NEUT % 77.7 % (42.8-82.8); PLATELET COUNT 299 K/MM3 (134-434); RBC 4.04 M/mm3 (3.60-5.2); RDW 19.2 % (11.6-15.6); WHITE BLOOD COUNT 8.5 K/mm3 (4.0-10.0)
[2018-08-15] MEDS ORDERED: ACETAMINOPHEN 1000 MG/100 ML VIAL (NON FORMULARY) IVPB ONE (21:46)
[2018-08-15] MEDS ORDERED: ACETAMINOPHEN INJECTION 100 ML IVPB ONE (21:54)
[2018-08-15 21:57] LABS: INR 1.13 (0.83-1.09); PROTHROMBIN TIME (PATIENT) 13.4 SEC (9.7-13.0)
[2018-08-15 22:15] LABS: ALBUMIN 3.6 g/dl (3.4-5.0); ALK PHOS 48 U/L (45-117); ANION GAP 7 MMOL/L (8-16); BILIRUBIN,TOTAL 0.2 mg/dL (0.2-1); BLOOD UREA NITROGEN 5 mg/dL (7-18); CALCIUM 8.6 mg/dL (8.5-10.1); CHLORIDE 110 mmol/L (98-107); CO2 22 mmol/L (21-32); CREATININE 0.5 mg/dL (0.55-1.3); GLUCOSE,RANDOM 90 mg/dL (74-106); LIPASE 159 U/L (73-393); POTASSIUM 3.6 mmol/L (3.5-5.1); SGOT/AST 10 U/L (15-37); SGPT/ALT 13 U/L (13-61); SODIUM 139 mmol/L (136-145); TOT PROT 7.1 g/dl (6.4-8.2)
[2018-08-15 22:21] LABS: ANISOCYTOSIS 1+; OVALOCYTE FEW
[2018-08-15] MEDS ORDERED: METOCLOPRAMIDE HCL INJECTION 10 MG/2 ML VIAL IVPUSH ONE (22:48)
[2018-08-15] MEDS ORDERED: METOCLOPRAMIDE HCL INJECTION 10 MG/2 ML VIAL ONE (22:49)
[2018-08-15] MEDS ORDERED: CEFTRIAXONE 1 GM in DEXTROSE 5%-WATER - 50 ML IVPB ONE (23:22)
--- NOTE | 2018-08-15 23:46 | PDOC ---
Attending Attestation - HPI HPI: 08/15/18 23:47 The patient is a 47-year-old female with past medical history significant for anemia transfusion x2, presents to the emergency department with multiple complaints. The patient presents with 3 days of URI symptoms, with worsening cough, subjective fever, nausea, and nonbilious-bloody vomiting x2, and diarrhea yesterday x2 denies melena or hematochezia. Denies dysuria, hematuria, flank or CVA pain, sick contact. The patient reports a history of chronic pelvic pain, denies any pain today. Allergies: NKA PCP: Jose Miguel Prado PA - Medical Decision Making 08/15/18 23:47 Documentation prepared by Bessie Johnson, acting as medical art therapist for Shaye Escamilla MD. <Bessie Johnson - Last Filed: 08/15/18 23:47> - Resident Resident Name: Roman Bateman - ED Attending Attestation I have performed the following: I have examined & evaluated the patient, The case was reviewed & discussed with the resident, I agree w/resident's findings & plan - Medical Decision Making 08/16/18 00:51 Patient Name: FRITZ HERNANDEZ THIS IS A PRELIMINARY REPORT FROM [facility] DATE OF SERVICE: 2018-08-15 23:31:58 IMAGES: [id number] EXAM: CT ABDOMEN AND PELVIS WITHOUT CONTRAST No nephrolithiasis, ureterolithiasis or obstructive uropathy. No bladder calculi. Unremarkable pancreas. Cholelithiasis. No bowel obstruction, colitis, diverticulitis, or free air. Appendix not seen. Enlarged uterus. Small physiologic free fluid cul-de-sac. CONFIDENTIALITY NOTICE: This information is intended only for the use of the recipient(s) named above. If you are not the intended recipient, or a person responsible for delivering it to the intended recipient, you are hereby notified that any disclosure, copying, distribution or use of any of the information contained in or attached to this transmission is STRICTLY PROHIBITED. If you have received this transmission in error, please immediately notify Imaging Reinstatement Clerk and destroy the original transmission and its attachments without saving them in any manner [address] [place] [address] Phone: [phone] ([phone]) Fax: Email: [email or web address] Patient Information: : 1970 Order Type: Preliminary Name: MARY HU Sex: F Study Description: CT ABDOMEN AND PELVIS Modality: CT Location: [facility] Referring Physician: IRAIS NORIEGA Individualized dose optimization techniques were used for this CT. THIS DOCUMENT HAS BEEN ELECTRONICALLY SIGNED <Shaye Escamilla - Last Filed: 08/16/18 00:51> - Physicial Exam PE: 08/16/18 02:11 GENERAL: Awake, alert, and fully oriented, in no acute distress HEAD: No signs of trauma EYES: PERRLA, EOMI, sclera anicteric, conjunctiva clear ENT: Auricles normal inspection, hearing grossly normal, nares patent, oropharynx clear without exudates. Moist mucosa NECK: Normal ROM, supple, no lymphadenopathy, JVD, or masses LUNGS: Breath sounds equal, clear to auscultation bilaterally. No wheezes, and no crackles HEART: Regular rate and rhythm, normal S1 and S2, no murmurs, rubs or gallops ABDOMEN: Soft, nontender, normoactive bowel sounds. No guarding, no rebound. No masses EXTREMITIES: Normal range of motion, no edema. No clubbing or cyanosis. No cords, erythema, or tenderness NEUROLOGICAL: Cranial nerves II through XII grossly intact. Normal speech, normal gait SKIN: Warm, Dry, normal turgor, no rashes or lesions noted. <Shannen Corbin - Last Filed: 08/16/18 02:12> Attestations - Attestations 08/16/18 02:12 Documentation prepared by Shannen Corbin, acting as medical art therapist for Shaye Escamilla MD. <Shannen Corbin - Last Filed: 08/16/18 02:12>
[2018-08-15] MEDS ORDERED: CEFTRIAXONE 1 GM/50 ML BAG ONE (23:58)
--- NOTE | 2018-08-16 00:07 | PDOC ---
*Physical Exam - Vital Signs Last Vital Signs Temp Pulse Resp BP Pulse Ox 100.3 F H 106 H 18 135/88 100 08/15/18 18:55 08/15/18 18:55 08/15/18 18:55 08/15/18 18:55 08/15/18 18:55 ED Treatment Course - LABORATORY CBC & Chemistry Diagram: 08/15/18 21:37 08/15/18 21:37 - ADDITIONAL ORDERS Additional order review: Laboratory Results 08/15/18 08/15/18 08/15/18 21:37 21:37 21:37 PT with INR 13.40 H INR 1.13 H Sodium 139 Potassium 3.6 Chloride 110 H Carbon Dioxide 22 Anion Gap 7 L BUN 5 L Creatinine 0.5 L Creat Clearance w eGFR > 60 Random Glucose 90 Calcium 8.6 Total Bilirubin 0.2 AST 10 L ALT 13 Alkaline Phosphatase 48 Total Protein 7.1 Albumin 3.6 Lipase 159 Beta HCG, Quant < 1.0 Urine Color Urine Appearance Urine pH Ur Specific [place] Urine Protein Urine Glucose (UA) Urine Ketones Urine Blood Urine Nitrite Urine Bilirubin Urine Urobilinogen Ur Leukocyte Esterase Urine WBC (Auto) Urine RBC (Auto) Ur Epithelial Cells Urine Yeast Urine HCG, Qual Blood Type O POSITIVE Antibody Screen Negative 08/15/18 19:07 PT with INR INR Sodium Potassium Chloride Carbon Dioxide Anion Gap BUN Creatinine Creat Clearance w eGFR Random Glucose Calcium Total Bilirubin AST ALT Alkaline Phosphatase Total Protein Albumin Lipase Beta HCG, Quant Urine Color Ltyellow Urine Appearance Cloudy Urine pH 6.0 Ur Specific [place] 1.020 Urine Protein Negative Urine Glucose (UA) Negative Urine Ketones Negative Urine Blood 1+ H Urine Nitrite Negative Urine Bilirubin Negative Urine Urobilinogen 2.0 H Ur Leukocyte Esterase 3+ H Urine WBC (Auto) 22 Urine RBC (Auto) 20-40 Ur Epithelial Cells Moderate Urine Yeast Rare Urine HCG, Qual Negative Blood Type Antibody Screen 08/15/18 21:37 RBC 4.04 MCV 70.8 L MCHC 30.3 L RDW 19.2 H MPV 8.9 Neutrophils % 77.7 D Lymphocytes % 9.6 D Monocytes % 8.2 Eosinophils % 3.7 Basophils % 0.8 - RADIOLOGY Radiograph Interpretation: CT without contrast of Abdomen and Pelvis: Onelia Avila MD wrote on Aug 16, 2018 at 12:44 AM: Referring Physician: IRAIS NORIEGA Patient Name: FRITZ HERNANDEZ THIS IS A PRELIMINARY REPORT FROM [facility] DATE OF SERVICE: 2018-08-15 23:31:58 IMAGES: [id number] EXAM: CT ABDOMEN AND PELVIS WITHOUT CONTRAST No nephrolithiasis, ureterolithiasis or obstructive uropathy. No bladder calculi. Unremarkable pancreas. Cholelithiasis. No bowel obstruction, colitis, diverticulitis, or free air. Appendix not seen. Enlarged uterus. Small physiologic free fluid cul-de-sac. Individualized dose optimization techniques were used for this CT. THIS DOCUMENT HAS BEEN ELECTRONICALLY SIGNED Onelia Avila M.D. 08/16/2018 00:43 EST - Medications Given in the ED: ED Medications Discontinued Medications Generic Name Dose Route Start Last Admin Trade Name Freq PRN Reason Stop Dose Admin Acetaminophen 1,000 mg 08/15/18 21:46 08/15/18 21:58 Ofirmev Injection - IVPB 08/15/18 21:47 1,000 mg ONCE ONE Administration Ceftriaxone Sodium 1 gm/ 50 mls @ 100 mls/hr 08/15/18 23:22 08/15/18 23:59 Dextrose IVPB 08/15/18 23:51 100 mls/hr ONCE ONE Administration Metoclopramide HCl 10 mg 08/15/18 22:48 08/15/18 22:54 Reglan Injection - IVPUSH 08/15/18 22:49 10 mg ONCE ONE Administration Sodium Chloride 1,000 ml 08/15/18 19:02 08/15/18 21:31 Normal Saline - IV 08/15/18 19:03 1,000 ml ONCE ONE Administration Medical Decision Making - Medical Decision Making 08/16/18 00:05 Received sign out from resident Dr. Bateman. In short, pt is a 47 y/o female presenting with RUQ pain concerning for pyelonephritis versus nephrolithiasis. Was noted to be tachycardic in the department. Has received 2L NS IVFB. Awaiting CT scan of abdomen and pelvis results. Dispo is likely home. 08/16/18 01:17 My attending reported results of CT scan and discharged pt. *DC/Admit/Observation/Transfer Diagnosis at time of Disposition: Vomiting Qualifiers: Vomiting type: unspecified Vomiting Intractability: non-intractable Nausea presence: with nausea Qualified Code(s): R11.2 - Nausea with vomiting, unspecified UTI (urinary tract infection) Qualifiers: Urinary tract infection type: site unspecified Hematuria presence: with hematuria Qualified Code(s): N39.0 - Urinary tract infection, site not specified - Discharge Dispostion Disposition: HOME Condition at time of disposition: Improved - Prescriptions Prescriptions: Cephalexin Monohydrate [Keflex -] 500 mg PO BID 10 Days #20 capsule - Referrals Referrals: Jose Miguel Prado PA [Primary Care Provider] - - Patient Instructions Printed Discharge Instructions: DI for Urinary Tract Infection (UTI) Additional Instructions: You were seen in the Emergency Department today for urinary tract infection. You were treat with one dose of antibiotics here and a prescription for antibiotics was sent to the pharmacy that you specified. Please take as directed. Please review the handouts provided at discharge. Follow up with your primary care physician within the next 1-3 days. Return to the Emergency Department if you develop fevers/chills, worsening pain , worsening symptoms, or any new/concerning symptoms. - Post Discharge Activity
[2018-08-16 01:03] VITALS: BP 142/84; PULSE 88; TEMP 98.9
== END 2018-08-16 01:03 | disposition home or self-care (01) ==
LOC: JER 18:53
PROC: 3E03329 Introduction of Other Anti-infective into Peripheral Vein, Percutaneous Approach (ICD-10-PCS; principal; 2018-08-15)
PROC: 3E033GC Introduction of Other Therapeutic Substance into Peripheral Vein, Percutaneous Approach (ICD-10-PCS; 2018-08-15)
PROC: 3E033NZ Introduction of Analgesics, Hypnotics, Sedatives into Peripheral Vein, Percutaneous Approach (ICD-10-PCS; 2018-08-15)
DX: N39.0 Urinary tract infection, site not specified (principal); R31.9 Hematuria, unspecified
CPT/HCPCS: 36415; 74176; 80053; 81003; 81015; 83690; 84702; 84703; 85025; 85610; 86850; 86900; 86901; 96365; 96375; 99282-25; J0131

== ENCOUNTER 2019-03-24 09:03 | Day surgery (SDC) | payer OTHER ==
[2019-03-24 14:27] VITALS: BP 122/85; PULSE 71; TEMP 97.2
--- NOTE | 2019-03-25 18:06 | PATH ---
Surgical Pathology Report Patient Name: FRITZ HERNANDEZ [facility]. Rec. #: [id number] /Age/Gender: 1970 (Age: 48) / F Account: [id number] Location: U-ENDOSCOPY Taken: 03/24/2019 Received: 03/24/2019 Reported: 03/25/2019 Physicians: Feroz Haskins M.D. Specimen(s) Received ANTRUM Clinical History Abdominal pain Postoperative diagnosis: Antral gastritis, diverticulosis Final Diagnosis STOMACH, ANTRUM, BIOPSY: GASTRIC ANTRAL MUCOSA WITH MODERATE CHRONIC GASTRITIS. DETACHED SCANT FRAGMENTS OF ACUTE INFLAMMATORY EXUDATE CONSISTENT WITH ULCER BED. IMMUNOHISTOCHEMICAL STAIN FOR H. PYLORI IS NEGATIVE. Electronically Signed Lolita Arboleda M.D. Gross Description Received in formalin, labeled "antrum" are 3 leonard, irregular portions of soft tissue measuring 0.2 cm. in greatest dimension. The specimens are submitted in toto in one cassette. MLSZ/03/24/2019 [place]/03/24/2019
== END 2019-03-24 15:17 | disposition home or self-care (01) ==
LOC: JASU-ENDO 09:03
PROVIDERS: ATTEND Internal Medicine Gastroenterology
PROC: 0DB68ZX Excision of Stomach, Via Natural or Artificial Opening Endoscopic, Diagnostic (ICD-10-PCS; 2019-03-24)
PROC: 0DJD8ZZ Inspection of Lower Intestinal Tract, Via Natural or Artificial Opening Endoscopic (ICD-10-PCS; principal; 2019-03-24 11:00)
DX: K57.30 Diverticulosis of large intestine without perforation or abscess without bleeding (principal); K64.8 Other hemorrhoids; D64.9 Anemia, unspecified; K25.9 Gastric ulcer, unspecified as acute or chronic, without hemorrhage or perforation
CPT/HCPCS: 84703; 88305-TC; 88342-TC

== ENCOUNTER 2019-07-20 18:38 | Inpatient (IN) | payer OTHER ==
[2019-07-20 18:54] VITALS: BMI 21.2
--- NOTE | 2019-07-20 18:54 | PDOC ---
Rapid Medical Evaluation Medical Evaluation: Allergies Allergy/AdvReac Type Severity Reaction Status Date / Time No Known Allergies Allergy Verified 08/15/18 18:55 I have performed a brief in-person evaluation of this patient. The patient presents with a chief complaint of: sent by pcp for r/o cva due to c /o L facial and L sided numbness/tingling Pertinent physical exam findings: decreased sensation along L side of body, no facial droop, 5/5 strength, normal gait I have ordered the following: EKG, labs The patient will proceed to the ED for further evaluation. 07/20/19 18:50
--- NOTE | 2019-07-20 19:19 | PN ---
Progress Note (short form) - Note Progress Note: 48F with no PMH presented to office today for 1st cardiac evaluation with chief complaint of 4 days of left facial numbness, left facial droop, left arm parasthesias and mild weakness of the left arm/hand. Also c/o tingling/ discomfort of left chest and mild headache. BP normal, ECG sinus. REC: Sent to ER for r/o CVA and further w/u. Do not suspect Enamorado's as there is involvement of left arm. Case d/w ER MD Full consult to full in AM
--- NOTE | 2019-07-20 19:34 | PDOC ---
History of Present Illness - General Chief Complaint: CVA/TIA Stated Complaint: PAIN TO L/SIDE OF FACE/CHEST/ARM/LEG Time Seen by Provider: 07/20/19 18:50 Past History - Past Medical History Allergies/Adverse Reactions: Allergies Allergy/AdvReac Type Severity Reaction Status Date / Time No Known Allergies Allergy Verified 07/20/19 18:54 Home Medications: Ambulatory Orders NK [No Known Home Medication] 03/24/19 Anemia: Yes COPD: No - Surgical History Appendectomy: Yes - Immunization History Td Vaccination: Yes Immunization Up to Date: Yes - Suicide/Smoking/Psychosocial Hx Smoking Status: No Smoking History: Never smoked Years of Tobacco Use: 0 Have you smoked in the past 12 months: No Number of Cigarettes Smoked Daily: 0 Cigars Per Day: 0 Hx Alcohol Use: No Drug/Substance Use Hx: No Substance Use Type: None Hx Substance Use Treatment: No Review of Systems - Review of Systems Able to Perform ROS?: Yes Comments:: 07/21/19 04:06 ROS: GENERAL/CONSTITUTIONAL: No fever or chills. No weakness. HEAD, EYES, EARS, NOSE AND THROAT: No change in vision. No ear pain or discharge. No sore throat. CARDIOVASCULAR: Chest pain. No shortness of breath RESPIRATORY: No cough, wheezing, or hemoptysis. GASTROINTESTINAL: No nausea, vomiting, diarrhea or constipation. GENITOURINARY: No dysuria, frequency, or change in urination. MUSCULOSKELETAL: Neck pain, shoulder pain. No joint or muscle swelling or pain. No neck or back pain. SKIN: No rash NEUROLOGIC: Headache, lightheadedness, numbness, diminished L sided sensation. No vertigo, loss of consciousness, or change in strength ENDOCRINE: No increased thirst. No abnormal weight change HEMATOLOGIC/LYMPHATIC: No anemia, easy bleeding, or history of blood clots. ALLERGIC/IMMUNOLOGIC: No hives or skin allergy. *Physical Exam - Vital Signs Last Vital Signs Temp Pulse Resp BP Pulse Ox 98.1 F 76 16 118/80 100 07/20/19 18:51 07/20/19 18:51 07/20/19 18:51 07/20/19 18:51 07/20/19 18:51 - Physical Exam Comments: 07/21/19 04:04 PE: GENERAL: Awake, alert, and fully oriented, in no acute distress HEAD: No signs of trauma, normocephalic, atraumatic EYES: PERRLA, EOMI, sclera anicteric, conjunctiva clear ENT: Auricles normal inspection, hearing grossly normal, nares patent, oropharynx clear without exudates. Moist mucosa NECK: Normal ROM, supple, no lymphadenopathy, JVD, or masses LUNGS: No distress, speaks full sentences, clear to auscultation bilaterally HEART: Regular rate and rhythm, normal S1 and S2, no murmurs, rubs or gallops, peripheral pulses normal and equal bilaterally. ABDOMEN: Soft, nontender, normoactive bowel sounds. No guarding, no rebound. No masses EXTREMITIES : Normal inspection, Normal range of motion, no edema. No clubbing or cyanosis NEUROLOGICAL: Diminished sensation throughout L side: V1-V3, LUE, abdomen, LLE. Otherwise: Cranial nerves II through XII grossly intact. Normal speech, normal gait, no focal sensorimotor deficits. 5/5 strength in upper and lower extremities. Normal gait. SKIN: Warm, Dry, normal turgor, no rashes or lesions noted NIH Stroke Scale - Last Known Well Date/Time & Onset Date Last Known Well: 07/17/19 Time Last Known Well: 12:00 - Initial Evaluation Level of consciousness: Alert Ask patient the month and their age: Answers both correctly Ask patient to open & close eyes; make fist and let go: Obeys both correctly Best gaze (horizontal eye movement): Normal Visual field testing: No visual field loss Facial paresis (Show teeth/raise eyebrows/close eyes tight): Normal symmetrical movement Motor Function: Left Arm: Normal Motor Function: Right Arm: Normal (extends arm 90 (or 45) degrees for 10 seconds without drift Motor Function: Left Leg: Normal (extends leg 30 degrees for 5 seconds without drift) Motor Function: Right Leg: Normal (extends leg 30 degrees for 5 seconds without drift) Limb Ataxia: No ataxia Sensory(Use pinprick test arms,legs,trunk,face/side to side): Mild to moderate decrease in sensation Best language (Describe picture, name items, read sentences): No Aphasia Dysarthria (read several words): Normal articulation Extinction and Inattention: No abnormality - Total Score NIH Stroke Scale Score: 1 TIA Risk Factors - ABCD Score Age: Age < 60 Blood Pressure: SBP < 140 and DBP < 90 Clinical Features of TIA: Uni wk w/wo speech impair Duration: TIA duration = or > 60min Diabetes: No Total ABCD2 Score (0-7):: 4 Heart Score/ECG Review - History History: Slightly suspicious - Electrocardiogram EKG: Normal - Age Age: 45-65 - Risk Factors Based on the list above the patient has:: No risk factors known - Troponin Troponin: </= normal limit - Score Heart Score - Total: 1 *DC/Admit/Observation/Transfer - Referrals - Patient Instructions - Post Discharge Activity
[2019-07-20 20:14] LABS: EOS % 2.5 % (0-4.5); HEMATOCRIT 29.2 % (32.4-45.2); LYMPH % 26.3 % (8-40); MCHC 30.9 g/dl (32.0-36.0); MEAN CELL VOLUME 77.7 fl (80-96); MEAN PLT VOLUME 8.8 fl (7.5-11.1); MONO % 7.6 % (3.8-10.2); NEUT % 61.6 % (42.8-82.8); PLATELET COUNT 407 K/MM3 (134-434); RBC 3.75 M/mm3 (3.60-5.2); RDW 17.7 % (11.6-15.6); WHITE BLOOD COUNT 9.2 K/mm3 (4.0-10.0)
[2019-07-20 20:29] LABS: INR 1.11 (0.83-1.09); PROTHROMBIN TIME (PATIENT) 13.1 SEC (9.7-13.0)
[2019-07-20 23:11] LABS: ALBUMIN 3.8 g/dl (3.4-5.0); ALK PHOS 46 U/L (45-117); ANION GAP 10 MMOL/L (8-16); BILIRUBIN,TOTAL 0.3 mg/dL (0.2-1); BLOOD UREA NITROGEN 7.4 mg/dL (7-18); CALCIUM 8.9 mg/dL (8.5-10.1); CHLORIDE 109 mmol/L (98-107); CO2 24 mmol/L (21-32); CREATININE 0.5 mg/dL (0.55-1.3); GLUCOSE,RANDOM 80 mg/dL (74-106); POTASSIUM 4.2 mmol/L (3.5-5.1); SGOT/AST 14 U/L (15-37); SGPT/ALT 13 U/L (13-61); SODIUM 142 mmol/L (136-145); TOT PROT 6.8 g/dl (6.4-8.2)
[2019-07-20] MEDS ORDERED: ACETAMINOPHEN 1000 MG/100 ML VIAL (NON FORMULARY) IVPB ONE (23:33)
[2019-07-21] MEDS ORDERED: METOCLOPRAMIDE HCL INJECTION 10 MG/2 ML VIAL IVPUSH ONE (01:19)
[2019-07-21] MEDS ORDERED: METOCLOPRAMIDE HCL INJECTION 10 MG/2 ML VIAL ONE (02:33)
[2019-07-21] MEDS ORDERED: ACETAMINOPHEN INJECTION 100 ML IVPB ONE (02:34)
[2019-07-21] MEDS: HEPARIN NA (PORCINE) 5,000 UNITS/ML 1ML VIAL SQ SCH ×3 (02:44→17:59)
--- NOTE | 2019-07-21 03:05 | HP ---
CHIEF COMPLAINT: Facial asymmetry with left sided numbness and tingling as well as weakness in the left side of the face, left arm, and left leg for the past 4 days PCP: Dr. Jose Miguel Prado HISTORY OF PRESENT ILLNESS: This is a 48 year old female with PMH significant for anemia (transfusions x2 in February 2017 at [facility]). She presents to the ER from home with complaints of facial asymmetry with left sided numbness and tingling as well as weakness in the left side of the face, left arm, and left leg for the past 4 days, associated with slurred speech, intermittent blurry vision, left sided chest pain, diffuse headaches, lower back pain, and left hip pain. She states that her symptoms were sudden in onset, and began while she was driving from the supermarket back to her house. She states that her family has also commented on her facial asymmetry, and are also of the belief that her voice sounds different as well. The chest pain is described as sharp in quality, localized to the left, sudden in onset, constant in nature, non radiating, aggravated by pressing on the chest and by taking deep breaths, and no alleviating factors. It is associated with shortness of breath and palpitations. The lower back back and left hip pain are constant in nature, non radiating, and began 5 days ago. The headache is described as a diffuse, pressing pain, intermittent in nature, beginning 5 days ago. She also complains of subjective fevers and chills for the past 4 days. She states that she has a history of heavy menses, with her LMP lasting 3 weeks and ending on July 10. She denies any recent illness, travel, or sick contacts. She does not complain of any vomiting, diarrhea, constipation, dysuria, urgency, or hematuria. Her symptoms persisted for the next few days, and she avoided seeking medical care because she states that healthcare providers have had difficulty obtaining IV access with her, and she wanted to avoid needle pricks. She finally went to see Dr. Hannah when her symptoms persisted, and he suggested that she visit the ER. ER course was notable for: (1) CT Head: no acute pathology, unchanged from previous scan on 01/26 (2) Hb Hct 9.0/29.2 (3) EKG NSR, Trops negative Recent Travel: None PAST MEDICAL HISTORY: Anemia (transfusions x2 in February 2017 at [facility]) Gastritis (was admitted at [facility] March 2019, had endoscopy and colonoscopy done) PAST SURGICAL HISTORY: Surgery for left ovarian cyst 2 years ago Appendectomy 20 years ago Social History: Lives with mother and daughter, is currently unemployed Smoking: denies Alcohol: occasional, no binge drinking Drugs: denies Family History: Mother had breast CA, DM Brother had DM Father due to pneumonia Allergies No Known Allergies Allergy (Verified 07/20/19 18:54) HOME MEDICATIONS: Home Medications Medication Instructions Recorded NK [No Known Home Medication] 03/24/19 REVIEW OF SYSTEMS CONSTITUTIONAL: fever, chills Absent: fever, chills, diaphoresis, generalized weakness, malaise, loss of appetite, weight change HEENT: visual changes Absent: rhinorrhea, nasal congestion, throat pain, throat swelling, difficulty swallowing, mouth swelling, ear pain, eye pain, visual changes CARDIOVASCULAR: chest pain, palpitations Absent: chest pain, syncope, palpitations, irregular heart rate, lightheadedness , peripheral edema RESPIRATORY: shortness of breath Absent: cough, shortness of breath, dyspnea with exertion, orthopnea, wheezing, stridor, hemoptysis GASTROINTESTINAL: Absent: abdominal pain, abdominal distension, nausea, vomiting, diarrhea, constipation, melena, hematochezia GENITOURINARY: Absent: dysuria, frequency, urgency, hesitancy, hematuria, flank pain, genital pain MUSCULOSKELETAL: Absent: myalgia, arthralgia, joint swelling, back pain, neck pain SKIN: Absent: rash, itching, pallor HEMATOLOGIC/IMMUNOLOGIC: Absent: easy bleeding, easy bruising, lymphadenopathy, frequent infections ENDOCRINE: Absent: unexplained weight gain, unexplained weight loss, heat intolerance, cold intolerance NEUROLOGIC: headache , focal weakness or paresthesias Absent: headache, focal weakness or paresthesias, dizziness, unsteady gait, seizure, mental status changes, bladder or bowel incontinence PSYCHIATRIC: Absent: anxiety, depression, suicidal or homicidal ideation, hallucinations. PHYSICAL EXAMINATION Vital Signs - 24 hr 07/20/19 18:51 Temperature 98.1 F Pulse Rate 76 Respiratory 16 Rate Blood Pressure 118/80 O2 Sat by Pulse 100 Oximetry (%) GENERAL: Awake, alert, and fully oriented, in no acute distress. HEAD: Normal with no signs of trauma. EYES: Pupils equal, round and reactive to light, extraocular movements intact, sclera anicteric, conjunctiva clear. No lid lag. EARS, NOSE, THROAT: Ears normal, nares patent, oropharynx clear without exudates. Moist mucous membranes. NECK: Normal range of motion, supple without lymphadenopathy, JVD, or masses. LUNGS: Breath sounds equal, clear to auscultation bilaterally. No wheezes, and no crackles. No accessory muscle use. HEART: Regular rate and rhythm, normal S1 and S2 without murmur, rub or gallop. ABDOMEN: Soft, nontender, not distended, normoactive bowel sounds, no guarding, no rebound, no masses. No hepatomegaly or splenomegaly. MUSCULOSKELETAL: Normal range of motion at all joints. No bony deformities or tenderness. No CVA tenderness. UPPER EXTREMITIES: 2+ pulses, warm, well-perfused. No cyanosis. No clubbing. No peripheral edema. LOWER EXTREMITIES: 2+ pulses, warm, well-perfused. No calf tenderness. No peripheral edema. NEUROLOGICAL: Motor strength RUE & RLE 5/5 LUE & LLE 4/5, sensations decreased in LUE & LLE, normal DTRs, CN XI weakness noted NIH 2 (for decreased sensations and weakness), no pronator drift, patient endorses left sided facial weakness, however on examination there was no droop, and left side seemed stronger than the right ( noticeable when asked to smile) PSYCHIATRIC: Cooperative. Good eye contact. Appropriate mood and affect. SKIN: Warm, dry, normal turgor, no rashes or lesions noted, normal capillary refill. Laboratory Results - last 24 hr 07/20/19 07/20/19 07/20/19 20:02 20:02 20:02 WBC 9.2 RBC 3.75 Hgb 9.0 L Hct 29.2 L MCV 77.7 L MCH 24.0 L D MCHC 30.9 L RDW 17.7 H Plt Count 407 D MPV 8.8 Absolute Neuts (auto) 5.7 Neutrophils % 61.6 D Lymphocytes % 26.3 D Monocytes % 7.6 Eosinophils % 2.5 Basophils % 2.0 Nucleated RBC % 0 PT with INR INR Sodium Cancelled Potassium Cancelled Chloride Cancelled Carbon Dioxide Cancelled Anion Gap Cancelled BUN Cancelled Creatinine Cancelled Est GFR (CKD-EPI)AfAm Cancelled Est GFR (CKD-EPI)NonAf Cancelled Random Glucose Cancelled Calcium Cancelled Total Bilirubin Cancelled AST Cancelled ALT Cancelled Alkaline Phosphatase Cancelled Creatine Kinase Cancelled Troponin I Cancelled Total Protein Cancelled Albumin Cancelled Serum , Qual 07/20/19 07/20/19 07/20/19 20:02 20:02 22:28 WBC RBC Hgb Hct MCV MCH MCHC RDW Plt Count MPV Absolute Neuts (auto) Neutrophils % Lymphocytes % Monocytes % Eosinophils % Basophils % Nucleated RBC % PT with INR 13.10 H INR 1.11 H Sodium 142 Potassium 4.2 Chloride 109 H Carbon Dioxide 24 Anion Gap 10 BUN 7.4 Creatinine 0.5 L Est GFR (CKD-EPI)AfAm 131.72 Est GFR (CKD-EPI)NonAf 113.65 Random Glucose 80 Calcium 8.9 Total Bilirubin 0.3 AST 14 L ALT 13 Alkaline Phosphatase 46 Creatine Kinase 58 Troponin I < 0.02 Total Protein 6.8 Albumin 3.8 Serum , Qual Negative ASSESSMENT/PLAN: 48 YO F with PMH of anemia (transfusions x2 2017). Presented to the ER with complaints of facial asymmetry with left sided numbness and tingling as well as weakness in the left side of the face, left arm, and left leg for the past 4 days, associated with slurred speech, intermittent blurry vision, left sided chest pain, diffuse headaches, lower back pain, and left hip pain. Admitted for suspected TIA. #r/o TIA - CT Head: no acute pathology, unchanged from previous scan on 01/26 - Neuro consult (Dr. Geurrero) placed. Will defer to neuro about whether an MRI/ MRA is required - Echo with carotid doppler - Lipid profile ordered - Seizure, fall risk precautions - Speech eval request placed - Tele obs #Chest pain - EKG NSR - Trops negative x1 - Cardio consult (Dr. Hannah) placed #Anemia - Hb/Hct 9.0/29.2 - Low MCV with high RDW and history of heavy menses suggests Fe deficiency anemia - Was last transfused 2x in February 2017 - Blood typing and screening ordered in case transfusion needed - Fe studies ordered - Transvaginal US (07/21/18): Thickened endometrial stripe endometrial hyperplasia vs polyps vs neoplasm #FEN - Mg, Phos ordered - NPO #DVT PE - Heparin 5000 SQ #Code status - Full Code Visit type - Emergency Visit Emergency Visit: Yes ED Registration Date: 07/21/19 Care time: The patient presented to the Emergency Department on the above date and was hospitalized for further evaluation of their emergent condition. - New Patient This patient is new to me today: Yes Date on this admission: 07/23/19 - Critical Care Critical Care patient: No ATTENDING PHYSICIAN STATEMENT I saw and evaluated the patient. I reviewed the resident's note and discussed the case with the resident. I agree with the resident's findings and plan as documented. SUBJECTIVE: OBJECTIVE: ASSESSMENT AND PLAN:
--- NOTE | 2019-07-21 03:21 | PDOC ---
Attending Attestation - Resident Resident Name: Shakeel Carson - ED Attending Attestation I have performed the following: I have examined & evaluated the patient, The case was reviewed & discussed with the resident, I agree w/resident's findings & plan - HPI HPI: 07/21/19 03:09 see resident hpi - Physicial Exam PE: 07/21/19 03:09 GENERAL: Awake, in no acute distress HEAD: No signs of trauma EYES: NECK: Normal ROM, LUNGS:. Normal work of breathing. HEART: Regular rate and rhythm, ABDOMEN: Soft, nondistended CHEST WALL: BACK: No midline tenderness. EXTREMITIES:. No erythema, or tenderness NEUROLOGICAL: Alert, SKIN: Warm, Dry - Medical Decision Making 07/21/19 03:21 48-year-old with left facial, arm and leg numbness and pain CT scan of the brain shows no acute abnormality Multiple calls placed to neurology, currently awaiting callback Will admit to medical service for further evaluation due to 4 days of persistent symptoms
--- NOTE | 2019-07-21 03:39 | PN ---
Teaching Attending Note Name of Resident: Channing Corley ATTENDING PHYSICIAN STATEMENT I saw and evaluated the patient. Chart, data , imaging reviewed. I reviewed the resident's note and discussed the case with the resident. I agree with the resident's findings and plan as documented. SUBJECTIVE: 48 year old woman with GENNA s/p blood transfusions here, c/o 4 days of left face , arm, chest, and lower extremity pain 9/10 at its worst, constant, which started spontaneously about 4 days ago. Not related to exertion. Seen Dr. Hannah in clinic for chest pain. Partial relief from IV tylenol. Pt does mention that bright light bothers her. No prior med Hx aside from anemia. Denied illicit substance use. OBJECTIVE: Last Vital Signs Temp Pulse Resp BP Pulse Ox 98.1 F 76 16 118/80 100 07/20/19 18:51 07/20/19 18:51 07/20/19 18:51 07/20/19 18:51 07/20/19 18:51 genera - nad, photophobia+ heent -normocytic neck supple cv-s1+s2+rrr chest clear abd- soft, nt neuro - cn2-12 intact, left upper, lower ext 4/5 strength, decreased sensation Abnormal Lab Results 07/20/19 07/20/19 07/20/19 20:02 20:02 22:28 Hgb 9.0 L Hct 29.2 L MCV 77.7 L MCH 24.0 L D MCHC 30.9 L RDW 17.7 H PT with INR 13.10 H INR 1.11 H Chloride 109 H Creatinine 0.5 L AST [address], ekg - wnl ASSESSMENT AND PLAN: #Left sided pain, decreased sensation, decreased motor strength x4 days associated with headache, photophobia - possibly complex migraine with hemiplegia. Some relief to tylenol. Doubt CVA or ACS. -tele/obs -npo -neuro checks -trend trops -carotid duplex u/s -echo -ua -consider brain mri -urine drug screen -bed rest -avoid bright lights -tylenol prn for headache -neuro, cardiology consults #Anemia -from iron deficiency, patient refused iron in the past -iron studies, ferritin -pelvic u/s to evaluate for fibroids -attempt ferrous sulfate dvt ppx - heparin sc
[2019-07-21 09:37] LABS: ALBUMIN 3.3 g/dl (3.4-5.0); ALK PHOS 42 U/L (45-117); ANION GAP 9 MMOL/L (8-16); BILIRUBIN,TOTAL 0.6 mg/dL (0.2-1); BLOOD UREA NITROGEN 10.8 mg/dL (7-18); CALCIUM 8.5 mg/dL (8.5-10.1); CHLORIDE 107 mmol/L (98-107); CO2 24 mmol/L (21-32); CREATININE 0.6 mg/dL (0.55-1.3); GLUCOSE,RANDOM 91 mg/dL (74-106); MAGNESIUM 2.3 mg/dL (1.8-2.4); PHOSPHOROUS 3.7 mg/dL (2.5-4.9); POTASSIUM 3.9 mmol/L (3.5-5.1); SGOT/AST 11 U/L (15-37); SGPT/ALT 12 U/L (13-61); SODIUM 139 mmol/L (136-145)
[2019-07-21 09:56] LABS: BASO % 0.5 % (0-2.0); EOS % 3.6 % (0-4.5); HEMATOCRIT 25.3 % (32.4-45.2); HEMOGLOBIN 7.9 GM/dL (10.7-15.3); LYMPH % 27.6 % (8-40); MCH 23.8 pg (25.7-33.7); MCHC 31.4 g/dl (32.0-36.0); MEAN CELL VOLUME 75.9 fl (80-96); MEAN PLT VOLUME 8.6 fl (7.5-11.1); MONO % 9.8 % (3.8-10.2); NEUT % 58.5 % (42.8-82.8); PLATELET COUNT 340 K/MM3 (134-434); RBC 3.34 M/mm3 (3.60-5.2); RDW 17.8 % (11.6-15.6); WHITE BLOOD COUNT 6.7 K/mm3 (4.0-10.0)
[2019-07-21 10:09] LABS: CHOLESTEROL 233 mg/dL (50-200); HDL CHOLESTEROL 42 mg/dL (40-60); TRIGLYCERIDES 109 mg/dL (0-150)
--- NOTE | 2019-07-21 10:34 | ECHO ---
Name: FRITZ HERNANDEZ Exam:Adult Echocardiogram Study Date: 07/21/2019 08:50 AM Age: 48 yrs Reason For Study: chest pain, cva Height: 62 in Weight: 116 lb BSA: 1.5 m2 MMode/2D Measurements & Calculations IVSd: 0.87 cm Ao root diam: 2.7 cm LVIDd: 3.3 cm LA dimension: 3.0 cm LVIDs: 2.1 cm LVPWd: 1.2 cm LVPWs: 1.4 cm EDV(Teich): 45.6 ml ESV(Teich): 14.1 ml Doppler Measurements & Calculations MV E max moncho: 78.0 cm/sec Ao V2 max: 111.0 cm/sec MV A max moncho: 57.3 cm/sec Ao max P.9 mmHg MV E/A: 1.4 Ao V2 mean: 69.8 cm/sec MV dec time: 0.21 sec Ao mean P.4 mmHg Ao V2 VTI: 23.1 cm LV V1 max P.0 mmHg PA V2 max: 93.0 cm/sec LV V1 mean P.9 mmHg PA max P.5 mmHg LV V1 max: 100.2 cm/sec LV V1 mean: 60.0 cm/sec LV V1 VTI: 22.4 cm Med Peak E' Moncho: 7.5 cm/sec Med E/e': 10.5 Lat Peak E' Moncho: 9.8 cm/sec Lat E/e': 8.0 Procedure A complete two-dimensional transthoracic echocardiogram was performed (2D, M-mode, Doppler and color flow Doppler). The patient was in normal sinus rhythm during the exam. Left Ventricle The left ventricular size, thickness and function are normal. Ejection Fraction = 60%. E/A reversal c onsistent with but not diagnostic of poor LV compliance. The left ventricular wall motion is normal. Right Ventricle The right ventricle is normal in size and function. Atria Normal left and right atrial size and function. Mitral Valve The mitral valve is normal in structure and function. There is trace mitral regurgitation. Tricuspid Valve The tricuspid valve is normal in structure and function. There is trace tricuspid regurgitation. Ther e was insufficient TR detected to calculate RV systolic pressure. Aortic Valve The aortic valve is normal in structure and function. Pulmonic Valve The pulmonic valve is not well visualized. Great Vessels The aortic root is normal size. Pericardium/Pleura There is no pericardial effusion. There is no pleural effusion. Interpretation Summary The left ventricular size, thickness and function are normal Ejection Fraction = 60%. The right ventricle is normal in size and function. There is trace mitral regurgitation. There is trace tricuspid regurgitation. MD Danis Tavarez 07/21/2019 10:34 AM
--- NOTE | 2019-07-21 10:50 | EKG ---
Test Reason : Blood Pressure : / mmHG Vent. Rate : 076 BPM Atrial Rate : 076 BPM P-R Int : 124 ms QRS Dur : 088 ms QT Int : 394 ms P-R-T Axes : 061 060 057 degrees QTc Int : 443 ms NORMAL SINUS RHYTHM NORMAL ECG WHEN COMPARED WITH ECG OF 11-FEB-2017 02:03, NO SIGNIFICANT CHANGE WAS FOUND Confirmed by Danis Tavarez MD ([id number]) on 07/21/2019 10:50:30 AM Referred By: Confirmed By:Danis Tavarez MD
[2019-07-21] MEDS ORDERED: PT OWN MED DRAWER 7, Y5N ONE ×3 (11:16→21:08)
[2019-07-21] MEDS: FERROUS SO4 325 MG TABLET (FP) PO SCH (11:23)
[2019-07-21] MEDS ORDERED: SUMAtriptan SUCCINATE 25 MG TABLET PO ONE (11:29)
[2019-07-21] MEDS ORDERED: SUMAtriptan SUCCINATE 50 MG TABLET PO PRN (11:30)
[2019-07-21] MEDS ORDERED: SUMAtriptan SUCCINATE 50 MG TABLET ONE (11:42)
--- NOTE | 2019-07-21 11:55 | CONSULT ---
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 PMHX: severe hypermenorrhagia and anemia requiring transfusions x 2. Cannot tolerate PO iron due to c/o constipation. Describes mild headaches usually catamenial in nature and otherwise rare headaches "every 6 months or so." Notes that headaches can be warned by "double vision" or "squiggly lights." Here today after 5 days of intractable left hemicranial "pulsing" headache with photophobia, phonophobia, kinesiophobia and "dizziness." No relief with Tylenol. Also with associated "whooshing" noise in left ear. Also with recent onset of "constant cramps" and "pains" in left arm and leg, interrupting sleep. Denies family history of headaches in family. Head CT in ED (reviewed): Nl study. Carotid duplex: No heme sig stenosis EKG NSR MCV= 77.7; Iron= 15; TIBC= 368; Iron Sat= 4%; Ferritin= 2.6!!!; Chol= 233; LDL= 171; B12= 656; TSH 1.93 GALE: Cor Reg. No bruit. Neck supple. Neg SLR. Pos Tinel's on L. DM=440/84 Afebrile. Pulse reg 80/min NEURO: Awake, alert, responsive. Ox x 3. CNII-CNXII: EOM's full with few beats nystagmus on conjugate left gaze. Full gastelum. No facial. Gag ok. Motor: No drift or tremor. Normal strength, tone and bulk. Normal reflexes. Toes downgoing. Coordination: No FTN dystaxia. Sensation: Decreased pinprink L digits I, II, III. Vibration normal. Gait: Variable, unsteady. Impression: Essentially normal neurological exam. 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 Suggest: MRI of brain (C-), MRA of brain (C-) Follow Orthostatic BPs Load with Depakote 500 mg IVPB x 1, Then start Depakote 250 mg po HS x 2 days, then increase to 500 mg HS for migraine prevention Add sumatriptan 100 mg prn and oxygen 4L via N/c for migraine IV iron supplementation ENT consult for eval of labryinthritis Begin pramipexole 0.125 mg BID once orthostatic changes have resolved and increase the dose slowly, as tolerated, for left sided pain and paresthesia. Thank you very much, Adal Guerrero MD
[2019-07-21] MEDS ORDERED: VALPROATE SODIUM 500 MG/5 ML VIAL IVPB ONE (12:00)
--- NOTE | 2019-07-21 12:12 | CON.CARD ---
Consult Consult Specialty:: Cardiology Referred by:: ER Reason for Consultation:: chest pain - History of Present Illness Chief Complaint: L arm pain, chest pain, L face numbness, headache History of Present Illness: 48F h/o anemia s/p blood transfusions with 4 days of L arm, face, chest and lower ext pain and numbness in her L face. Has been stable for [address] Hannah yesterday in office for chest pain and was referred to ER. Stable symptoms this morning, also complains of head and neck ache as well as feeling sensitive to light. - Alcohol/Substance Use Hx Alcohol Use: No - Smoking History Smoking history: Never smoked Have you smoked in the past 12 months: No Aproximately how many cigarettes per day: 0 Home Medications - Allergies Allergies/Adverse Reactions: Allergies Allergy/AdvReac Type Severity Reaction Status Date / Time No Known Allergies Allergy Verified 07/20/19 18:54 - Home Medications Home Medications: Ambulatory Orders NK [No Known Home Medication] 03/24/19 Family Disease History - Family Disease History Family History: Unremarkable Review of Systems - Review of Systems Constitutional: reports: No Symptoms Eyes: reports: No Symptoms HENT: reports: No Symptoms Neck: reports: No Symptoms Cardiovascular: reports: Chest Pain Respiratory: reports: No Symptoms Gastrointestinal: reports: No Symptoms Genitourinary: reports: No Symptoms Musculoskeletal: reports: No Symptoms Integumentary: reports: No Symptoms Neurological: reports: No Symptoms Endocrine: reports: No Symptoms Hematology/Lymphatic: reports: No Symptoms Vital Signs: Vital Signs Temperature 98.0 F 07/21/19 09:11 Pulse Rate 76 07/21/19 09:11 Respiratory Rate 16 07/21/19 09:11 Blood Pressure 98/61 07/21/19 09:11 O2 Sat by Pulse Oximetry (%) 98 07/21/19 09:11 Constitutional: Yes: No Distress, Calm Eyes: Yes: Conjunctiva Clear, EOM Intact HENT: Yes: Atraumatic, Normocephalic Neck: Yes: Supple, Trachea Midline Respiratory: Yes: Regular, CTA Bilaterally Gastrointestinal: Yes: Normal Bowel Sounds, Soft Cardiovascular: Yes: Regular Rate and Rhythm JVD: No Heart Sounds: Yes: S1, S2 Edema: No Peripheral Pulses WNL: Yes Integumentary: No: Jaundice Neurological: Yes: Alert, Oriented Psychiatric: No: Agitated - Other Data Labs, Other Data: CBC, BMP 07/21/19 08:45 07/21/19 08:45 INR, PTT INR 1.11 (0.83-1.09) H 07/20/19 20:02 Troponin, BNP 07/20/19 07/20/19 07/21/19 20:02 22:28 08:45 Troponin I Cancelled < 0.02 < 0.02 Troponin, BNP 07/20/19 07/20/19 07/21/19 20:02 22:28 08:45 Troponin I Cancelled < 0.02 < 0.02 Assessment/Plan EKG: sinus, nl intervals, no ischemic changes L chest pain, headache, lower ext pain, facial numbness - trop neg x 2, EKG no ischemic changes, atypical symptoms - unlikely ACS - echo, carotids pending - workup per neuro - brain MRI pending anemia - manage per primary
--- NOTE | 2019-07-21 14:53 | CONSULT ---
Admitting History and Physical - Primary Care Physician PCP: Louie Draper - Admission History of Present Illness: This is a 48 year old female with PMH significant for anemia (transfusions x2 in February 2017 at [facility]). She presents to the ER from home with complaints of facial asymmetry with left sided numbness and tingling as well as weakness in the left side of the face, left arm, and left leg for the past 4 days, associated with slurred speech, intermittent blurry vision, left sided chest pain, diffuse headaches, lower back pain, and left hip pain. Pt seen in ED. C/o left facial pain, radiating down left side. No assymetry, No c/o speech/ cognitive/swallowing deficits. History Source: Patient Limitations to Obtaining History: No Limitations, Language Barrier - Smoking History Smoking history: Never smoked Have you smoked in the past 12 months: No Aproximately how many cigarettes per day: 0 - Alcohol/Substance Use Hx Alcohol Use: No History - Admission Reason For Visit: PARESTHESIA OF LEFT UPPER AND LOWER EXTREMITY - Diagnostics CT Scan: Report Reviewed - General Mental Status: Alert and Oriented, Awake and Alert, Able to Follow Commands Attention: Intact Ability to Follow Directions: Excellent Head/Neck Control: WFL - Hearing Hearing: Functional Speech Evaluation - Communication Primary Language: GUYANESE Secondary Language: BENGALI (some) Communication: Yes: Within Normal Limits, Language Barrier Oral Expression Ability: Yes: No Impairment - Speech Production Able to Make Needs Known: Yes: WNL Intelligibility: Yes: WNL - Speech Characteristics Voice Loudness: Normal Voice Pitch: Yes: Normal Voice Phonatory-based Quality: Yes: Normal Speech Pattern: Normal Nasal Resonance: Normal Articulation: Yes: Precise Rate of Speech: Intact - Language/Auditory Comprehension Follows: Yes: 2 Stage Simple Commands - Language/Verbal Expression Able to Respond to Simple Queries: Yes: WNL Able to Communicate Wants and Needs: Yes: WNL Functional Communication Status: Yes: WNL - Swallow Evaluation/Bedside Assessment Current Nutritional Intake: Regular, Thin Liquids Oral Secretions: Yes: WFL Dentition: Yes: Adequate Facial Symmetry at Rest: Symmetrical Facial Symmetry on Retraction: Symmetrical Sensation: Normal Against Resistance Opening: Normal Against Resistance Closing: Normal Pucker Lips: Normal Smile: Normal Lingual Movement: Normal, Symmetric Lingual Speed of Movement: Normal Lingual Movement Strgth Against Opposition: Normal Lingual Movement Characteristics: Normal Velopharyngeal Movement: Normal Laryngeal Elevation: WFL Laryngeal Movement: Able to Palpate Rate of Intake: WFL Bolus Size: WFL Labial Seal: WFL Chewing: WFL Oral Prep Time: WFL A-P Transit: WFL Pocketing: None Timing of Swallow: WFL Coughing/Throat Clear: No Change in Voice: No Recommendations - Speech Evaluation, Impression/Plan Impression: Speech/cognitive/swallowing deficits intact. Pt c/o left facial pain radiaing down left side. - Dysphagia Impressions/Plan Swallowing Skills: [facility] Dysphagia Impressions: No Impairment *Silent aspiration: cannot be R/O at bedside - Recommendations Diet Consistency: Regular Medication Administration: Whole with water Liquids: Thin Liquids
--- NOTE | 2019-07-21 15:04 | PN ---
Physical Exam: SUBJECTIVE: Patient seen and examined at the bedside. Patient is Belarusian speaking but does understand some Mauritanian. Still endorsing decreased sensation in the L side of her face and weakness in her L face and extremities. OBJECTIVE: Vital Signs Period Temp Pulse Resp BP Sys/Rogers Pulse Ox Last 24 Hr 98.0 F-98.1 F 71-81 16-16 98-136/61-83 98-100 GENERAL: The patient is awake, alert, and fully oriented, in no acute distress. HEAD: Normal with no signs of trauma. EYES: PERRL, extraocular movements intact, sclera anicteric, conjunctiva clear. No ptosis. No nystagmus. ENT: Ears normal, nares patent, oropharynx clear without exudates, moist mucous membranes. NECK: Trachea midline, full range of motion, supple. LUNGS: Breath sounds equal, clear to auscultation bilaterally, no wheezes, no crackles, no accessory muscle use. HEART: Regular rate and rhythm, S1, S2 without murmur, rub or gallop. ABDOMEN: Soft, nontender, nondistended, normoactive bowel sounds, no guarding EXTREMITIES: 2+ pulses, warm, well-perfused, no edema. NEUROLOGICAL: Cranial nerves II through XII grossly intact. Normal speech, gait not observed. Patient endorses decreased sensation on the L face compared to R. RUE/ LLE are 5/5 strength, LUE/LLE are 4/5 strength, however on my exam the the neurologic findins were inconsistent and with effort sometimes patient was able to achieve 5/5 strength, however patient appeared to struggle and become tired. There was no nasolabial fold flattening or asymmetry in the patient's face. Patellar, Biceps and Triceps reflexes were 1+ bilaterally. PSYCH: Normal mood, normal affect. SKIN: Warm, dry, normal turgor, no rashes or lesions noted Laboratory Results - last 24 hr 07/20/19 07/20/19 07/20/19 20:02 20:02 20:02 WBC 9.2 RBC 3.75 Hgb 9.0 L Hct 29.2 L MCV 77.7 L MCH 24.0 L D MCHC 30.9 L RDW 17.7 H Plt Count 407 D MPV 8.8 Absolute Neuts (auto) 5.7 Neutrophils % 61.6 D Lymphocytes % 26.3 D Monocytes % 7.6 Eosinophils % 2.5 Basophils % 2.0 Nucleated RBC % 0 Retic Count PT with INR INR Sodium Cancelled Potassium Cancelled Chloride Cancelled Carbon Dioxide Cancelled Anion Gap Cancelled BUN Cancelled Creatinine Cancelled Est GFR (CKD-EPI)AfAm Cancelled Est GFR (CKD-EPI)NonAf Cancelled Random Glucose Cancelled Hemoglobin A1c % Calcium Cancelled Phosphorus Magnesium Iron TIBC Iron Saturation Unsaturated IBC Ferritin Total Bilirubin Cancelled AST Cancelled ALT Cancelled Alkaline Phosphatase Cancelled Creatine Kinase Cancelled Troponin I Cancelled Total Protein Cancelled Albumin Cancelled Triglycerides Cholesterol Total LDL Cholesterol HDL Cholesterol Vitamin B12 TSH Serum , Qual 07/20/19 07/20/19 07/20/19 20:02 20:02 22:28 WBC RBC Hgb Hct MCV MCH MCHC RDW Plt Count MPV Absolute Neuts (auto) Neutrophils % Lymphocytes % Monocytes % Eosinophils % Basophils % Nucleated RBC % Retic Count PT with INR 13.10 H INR 1.11 H Sodium 142 Potassium 4.2 Chloride 109 H Carbon Dioxide 24 Anion Gap 10 BUN 7.4 Creatinine 0.5 L Est GFR (CKD-EPI)AfAm 131.72 Est GFR (CKD-EPI)NonAf 113.65 Random Glucose 80 Hemoglobin A1c % Calcium 8.9 Phosphorus Magnesium Iron TIBC Iron Saturation Unsaturated IBC Ferritin Total Bilirubin 0.3 AST 14 L ALT 13 Alkaline Phosphatase 46 Creatine Kinase 58 Troponin I < 0.02 Total Protein 6.8 Albumin 3.8 Triglycerides Cholesterol Total LDL Cholesterol HDL Cholesterol Vitamin B12 TSH Serum , Qual Negative 07/21/19 07/21/19 07/21/19 08:45 08:45 08:45 WBC RBC Hgb Hct MCV MCH MCHC RDW Plt Count MPV Absolute Neuts (auto) Neutrophils % Lymphocytes % Monocytes % Eosinophils % Basophils % Nucleated RBC % Retic Count 2.24 H D PT with INR INR Sodium 139 Potassium 3.9 Chloride 107 Carbon Dioxide 24 Anion Gap 9 BUN 10.8 Creatinine 0.6 Est GFR (CKD-EPI)AfAm 124.05 Est GFR (CKD-EPI)NonAf 107.03 Random Glucose 91 Hemoglobin A1c % 5.5 Calcium 8.5 Phosphorus 3.7 Magnesium 2.3 Iron TIBC Iron Saturation Unsaturated IBC Ferritin Total Bilirubin 0.6 AST 11 L ALT 12 L Alkaline Phosphatase 42 L Creatine Kinase 43 Troponin I < 0.02 Total Protein 6.0 L Albumin 3.3 L Triglycerides 109 Cholesterol 233 H Total LDL Cholesterol 171 H HDL Cholesterol 42 Vitamin B12 TSH 1.93 Serum , Qual 07/21/19 07/21/19 07/21/19 08:45 08:45 09:54 WBC 6.7 RBC 3.34 L Hgb 7.9 L Hct 25.3 L MCV 75.9 L MCH 23.8 L MCHC 31.4 L RDW 17.8 H Plt Count 340 MPV 8.6 Absolute Neuts (auto) 3.9 Neutrophils % 58.5 Lymphocytes % 27.6 Monocytes % 9.8 Eosinophils % 3.6 Basophils % 0.5 Nucleated RBC % 0 Retic Count PT with INR INR Sodium Potassium Chloride Carbon Dioxide Anion Gap BUN Creatinine Est GFR (CKD-EPI)AfAm Est GFR (CKD-EPI)NonAf Random Glucose Hemoglobin A1c % Calcium Phosphorus Magnesium Iron 15 L TIBC 368 Iron Saturation 4 L Unsaturated IBC 353 H Ferritin 2.6 L Total Bilirubin AST ALT Alkaline Phosphatase Creatine Kinase Troponin I Total Protein Albumin Triglycerides Cholesterol Total LDL Cholesterol HDL Cholesterol Vitamin B12 656 TSH Serum , Qual Active Medications Generic Name Dose Route Start Last Admin Trade Name Freq PRN Reason Stop Dose Admin Divalproex Sodium 250 mg 07/21/19 22:00 Depakote *Er* - PO HS MARLEE Ferrous Sulfate 325 mg 07/21/19 10:00 07/21/19 11:23 Feosol - PO 325 mg DAILY MARLEE Administration Heparin Sodium (Porcine) 5,000 unit 07/21/19 02:00 07/21/19 11:23 Heparin - SQ 5,000 unit Q8H-IV MARLEE Administration Sumatriptan Succinate 100 mg 07/21/19 11:30 Imitrex - PO PRN PRN HEADACHE ASSESSMENT/PLAN: 48 YO F with PMH of anemia (2/2 heavy menses). Presented to the ER with complaints of facial asymmetry with left sided numbness and tingling as well as weakness in the left side of the face, left arm, and left leg for the past 4 days, associated with slurred speech, intermittent blurry vision, left sided chest pain, diffuse headaches, lower back pain, and left hip pain. Admitted for suspected TIA. # Left sided pain and numbness- Neuro exam that is not reproducible with consistency, unclear if etiology is neurologic vs. mechanically limited due to pain. Thalamic stroke possible however, this is lower on my differential as on my exam the patient's neurologic findings showed some variance. Per neurology the ddx includes complicated migraines vs. labrithitis vs. restless leg syndrome. The patient needs an MRI to r/o thalamic stroke however, one cannot be obtained due to the fact that she has braces on her teeth and this would cause too much artifact. - Carotid U/S, and echo are unremarkable. - B12 nl (656) - F/U lyme titers - Neurology following, appreciate recommendations - Depakote 250mg PO HSx4d, then increase to 500 mg HS for migraine prevention - Recommend > Add sumatriptan 100 mg prn and oxygen 4L via N/c for migraine > HOWEVER as patient will not have MRI and we cannot r/o thalamic stroke as of yet, we will avoid triptans for now - Obtain orthostatic BPs - IV iron supplementation - ENT consult for eval of labryinthritis # Chronic iron def anemia, due to heavy menses - F/U iron studies - IV iron infusion - F/U TV US - transfuse if Hb < 7 # CP - EKG - Trops negative x2 - appreciate Dr. Escamilla input #FEN - NS 100cc/hr - monitor lytes replete PRN - Reg diet #DVT PE - Heparin 5000 SQ #Code status - Full Code Visit type - Emergency Visit Emergency Visit: Yes ED Registration Date: 07/21/19 Care time: The patient presented to the Emergency Department on the above date and was hospitalized for further evaluation of their emergent condition. - New Patient This patient is new to me today: No - Critical Care Critical Care patient: No - Discharge Referral Referred to [facility] Med [facility].C[facility] No ATTENDING PHYSICIAN STATEMENT I saw and evaluated the patient. I reviewed the resident's note and discussed the case with the resident. I agree with the resident's findings and plan as documented. SUBJECTIVE: OBJECTIVE: ASSESSMENT AND PLAN:
[2019-07-21] MEDS ORDERED: IRON SUCROSE INJECTION 200 MG in SODIUM CHLORIDE 90 ML IVPB ONE (17:23)
--- NOTE | 2019-07-21 17:31 | PN ---
Teaching Attending Note Name of Resident: Chinyere Monsalve ATTENDING PHYSICIAN STATEMENT I saw and evaluated the patient. I reviewed the resident's note and discussed the case with the resident. I agree with the resident's findings and plan as documented. SUBJECTIVE: video control engineer phone [phone] used. reports continues numbness, tingling, pain and weakness in her L sided face and body. No N/V. denies any photophobia. no CP . can not tolerate po iron due to Nausea. has seen MANAGED SERVICES SALES CONSULTANT after her dc but did not get any special instructions or new information reportedly. has apt with new MANAGED SERVICES SALES CONSULTANT on 7th of next month. reports heavy periods , last month it lasted 3 weeks. reports h/o 2 fibroids removed 7 years ago. denies an y GI bleed or melena. denies any hematuria. OBJECTIVE: NAD, awake, alert, and cooperative MMM, CV: RRR, no MRG Lungs: CTAB Ext : No edema or erythema Abd: soft, ND, TTP in suprapubic area. Neuro: EOMI, no nystagmus noted, round equal pupils, reactive to light. no facial droop, tongue and uvula at midline. decreased sensation to light touch in L face. Strength : RUE: 5/5 shoulder shrug, biceps , triceps, deltopid , and nl hand rigging loft repairer. LUE: 4/4 deltoid due to pain. 5/5 biceps and triceps. decreased hand rigging loft repairer. RLE: 5/5 hip flexion , knee flexion/extension , and ankle plantar flexion and dorsiflexion LLE: 4/5 hip flexion [id number] by pain, 5/5 knee flexion/extension , and ankle plantar flexion and dorsiflexion Knee jerk : 2+ on R, 1+ on L . sensation to light touch: decreased on L sided of body and face ASSESSMENT AND PLAN: 48 y/o lady wit h/o iron def anemia due to heavy menstrual period, who presented with L sided weakness, numbness , and pain in addition to CP. 1- L sided pain and numbness. the proximal muscle weakness in LUe and LLE is actually due to pain. - Can't r/o thalamic stroke, but MRI will not be helpful ( artifact) due to braces after d/w rad. - CUS, and echo are unrevealing. - B12 nl - check lyme titers. - per neuro : in DDx is restless limb syndrome and complicated migraines - will start IVF and fioricet - cont divalproex with titrating instructions - since we can't r/o a thalamic stroke, will see if firoicet and IVf can help and if we can avoid triptans - will give iron infusion 2- Chronic iron def anemia, due to heavy menses. iron studies reviewed. - can't tolerate po iron - already received 3 iron infusion sessions by PCP last month, will give one now - TV US note ( thick endometrium), she needs to follow with MANAGED SERVICES SALES CONSULTANT ( has apt on ) - transfuse if Hb < 7 3- CP: atypical . EKG and trop reviewed. appreciate Dr. Escamilla input 4- DVT PX : heparin sq
[2019-07-21] MEDS: ACETAMINOPHEN/CAFFEINE/BUTALBITAL 1 TAB PO PRN (19:57)
[2019-07-21 20:22] LABS: EPI CELLS 7.7 /HPF (0-5/HPF); HYALINE CASTS 0 /lpf (0-8); URINE APPEARANCE CLEAR; URINE BACTERIA 48.6 /hpf (NEGATIVE); URINE BILIRUBIN NEGATIVE (NEGATIVE); URINE COLOR YELLOW; URINE GLUCOSE (UA) NEGATIVE (NEGATIVE); URINE KETONE TRACE (NEGATIVE); URINE LEUK ESTERASE 1+ (NEGATIVE); URINE NITRITE NEGATIVE (NEGATIVE); URINE PROTEIN NEGATIVE (NEGATIVE); URINE RBC 0 /hpf (0-4); URINE UROBILINOGEN 0.2 mg/dL (0.2-1.0); URINE WBC 4 /hpf (0-5)
[2019-07-21] MEDS: SODIUM CHLORIDE 1,000 ML IV SCH (20:30)
[2019-07-21] MEDS ORDERED: DIVALPROEX NA *ER* EXTEND REL 250 MG TABLET.SA PO SCH (22:00)
[2019-07-22] MEDS ORDERED: MELATONIN 5 MG TABLETS PO ONE ×2 (01:16→23:47)
[2019-07-22] MEDS ORDERED: ACETAMINOPHEN 325 MG TABLET (FP) PO ONE (01:16)
[2019-07-22] MEDS: HEPARIN NA (PORCINE) 5,000 UNITS/ML 1ML VIAL SQ SCH ×3 (01:28→20:26)
[2019-07-22] MEDS: ACETAMINOPHEN/CAFFEINE/BUTALBITAL 1 TAB PO PRN ×3 (06:43→22:41)
[2019-07-22] MEDS: SODIUM CHLORIDE 1,000 ML IV SCH ×2 (06:44→20:26)
[2019-07-22] MEDS ORDERED: DOCUSATE SODIUM 100 MG CAPSULE (FP) PO PRN (08:56)
--- NOTE | 2019-07-22 08:59 | PN ---
Teaching Attending Note Name of Resident: Alison Campo ATTENDING PHYSICIAN STATEMENT I saw and evaluated the patient. I reviewed the resident's note and discussed the case with the resident. I agree with the resident's findings and plan as documented. SUBJECTIVE: patient is c/o having chest pain today reproducable. OBJECTIVE: Vital Signs Temperature 98.2 F 07/22/19 06:00 Pulse Rate 75 07/22/19 06:00 Respiratory Rate 18 07/22/19 06:00 Blood Pressure 103/62 07/22/19 06:00 O2 Sat by Pulse Oximetry (%) 98 07/21/19 21:00 GENERAL: The patient is awake, alert, and fully oriented, in no acute distress. HEAD: Normal with no signs of trauma. EYES: PERRL, extraocular movements intact, sclera anicteric, conjunctiva clear. ENT: Ears normal,patent, oropharynx clear without exudates, moist mucous membranes. NECK: Trachea midline, full range of motion, supple. LUNGS: Breath sounds equal, clear to auscultation bilaterally, no wheezes, no crackles, no accessory muscle use. HEART: Regular rate and rhythm, S1, S2 without murmur, rub or gallop. ABDOMEN: Soft,NT,ND, normoactive bowel sounds, no guarding, no rebound, no hepatosplenomegaly, no masses. EXTREMITIES: 2+ pulses, warm, well-perfused, no edema. NEUROLOGICAL: Cranial nerves II through XII grossly intact. Normal speech, gait is stable but weakness of left leg due to pain. PSYCH: Normal mood, normal affect. SKIN: Warm, dry, normal turgor, no rashes or lesions noted CBCD WBC 6.7 K/mm3 (4.0-10.0) 07/21/19 08:45 RBC 3.34 M/mm3 (3.60-5.2) L 07/21/19 08:45 Hgb 7.9 GM/dL (10.7-15.3) L 07/21/19 08:45 Hct 25.3 % (32.4-45.2) L 07/21/19 08:45 MCV 75.9 fl (80-96) L 07/21/19 08:45 MCHC 31.4 g/dl (32.0-36.0) L 07/21/19 08:45 RDW 17.8 % (11.6-15.6) H 07/21/19 08:45 Plt Count 340 K/MM3 (134-434) 07/21/19 08:45 MPV 8.6 fl (7.5-11.1) 07/21/19 08:45 CMP Sodium 139 mmol/L (136-145) 07/21/19 08:45 Potassium 3.9 mmol/L (3.5-5.1) 07/21/19 08:45 Chloride 107 mmol/L (98-107) 07/21/19 08:45 Carbon Dioxide 24 mmol/L (21-32) 07/21/19 08:45 Anion Gap 9 MMOL/L (8-16) 07/21/19 08:45 BUN 10.8 mg/dL (7-18) 07/21/19 08:45 Creatinine 0.6 mg/dL (0.55-1.3) 07/21/19 08:45 Random Glucose 91 mg/dL (74-106) 07/21/19 08:45 Calcium 8.5 mg/dL (8.5-10.1) 07/21/19 08:45 Total Bilirubin 0.6 mg/dL (0.2-1) 07/21/19 08:45 AST 11 U/L (15-37) L 07/21/19 08:45 ALT 12 U/L (13-61) L 07/21/19 08:45 Alkaline Phosphatase 42 U/L (45-117) L 07/21/19 08:45 Total Protein 6.0 g/dl (6.4-8.2) L 07/21/19 08:45 Albumin 3.3 g/dl (3.4-5.0) L 07/21/19 08:45 CARDIAC ENZYMES Creatine Kinase 43 U/L (26-192) 07/21/19 08:45 Troponin I < 0.02 ng/ml (0.00-0.05) 07/21/19 08:45 Current Medications Generic Name Dose Route Start Last Admin Trade Name Freq PRN Reason Stop Dose Admin Acetaminophen/Butalbital/Caffeine 1 tablet 07/21/19 17:22 07/22/19 06:43 Fioricet - PO 1 tablet Q6H PRN Administration HEADACHE Divalproex Sodium 250 mg 07/21/19 22:00 07/21/19 21:36 Depakote *Er* - PO 250 mg HS MARLEE Administration Docusate Sodium 100 mg 07/22/19 10:00 Colace - PO BID MARLEE Ferrous Sulfate 325 mg 07/21/19 10:00 07/21/19 11:23 Feosol - PO 325 mg DAILY MARLEE Administration Heparin Sodium (Porcine) 5,000 unit 07/21/19 02:00 07/22/19 01:28 Heparin - SQ 5,000 unit Q8H-IV MARLEE Administration Sodium Chloride 1,000 mls @ 100 mls/hr 07/21/19 17:30 07/22/19 06:44 Normal Saline - IV 100 mls/hr ASDIR MARLEE Administration Home Medications Medication Instructions Recorded NK [No Known Home Medication] 03/24/19 ASSESSMENT AND PLAN: Patient is a 48yo female with PMHx of iron def anemia due to heavy menstrual period, who presented with L sided weakness, numbness , and pain in addition to reproducable CP. # Acute iron deficiency anemia over chronic: s/p 3 iron infusion by her PCP last month, and given 1x infusion at this hospitalization. # Septated cyst : and TV US ( thick endometrium) with septated cyst will get OBGYn to see the patient. patient has an appointment with her FARM LOAN INSPECTOR ( on 08/17) # L sided pain and numbness on . the proximal muscle weakness in LUe and LLE aggrevated with iron deficenincy anemia n. # atypical CP:unlikely ACS ; EKG and trop reviewed, trop neg x 2, EKG no ischemic changes, atypical symptoms echo unremarkable # Migraine headache : as per neuro patient started on Fioricet, and depakote neuro on board DVT PX : heparin sq
--- NOTE | 2019-07-22 10:11 | PN ---
Physical Exam: SUBJECTIVE: Patient seen and examined at the bedside. Patient still reporting L sided, parasthesias, weakness, and pain. She feels there has been no improvement in her status. OBJECTIVE: Vital Signs Period Temp Pulse Resp BP Sys/Rogers Pulse Ox Last 24 Hr 97.8 F-99.3 F 71-86 16-18 103-136/62-84 98-100 GENERAL: The patient is awake, alert, and fully oriented, in no acute distress. HEAD: Normal with no signs of trauma. EYES: PERRL, extraocular movements intact, sclera anicteric, conjunctiva clear. No ptosis. No nystagmus. ENT: Ears normal, nares patent, oropharynx clear without exudates, moist mucous membranes. NECK: Trachea midline, full range of motion, supple. LUNGS: Breath sounds equal, clear to auscultation bilaterally, no wheezes, no crackles, no accessory muscle use. HEART: Regular rate and rhythm, S1, S2 without murmur, rub or gallop. ABDOMEN: Soft, nontender, nondistended, normoactive bowel sounds, no guarding EXTREMITIES: 2+ pulses, warm, well-perfused, no edema. NEUROLOGICAL: Cranial nerves II through XII grossly intact. Normal speech, gait not observed. Patient endorses decreased sensation on the L face compared to R. RUE/ LLE are 5/5 strength, LUE/LLE are 4/5 strength, however on my exam the the neurologic findins were inconsistent and with effort sometimes patient was able to achieve 5/5 strength, however patient appeared to struggle and become tired. There was no nasolabial fold flattening or asymmetry in the patient's face. Patellar, Biceps and Triceps reflexes were 1+ bilaterally. PSYCH: Normal mood, normal affect. SKIN: Warm, dry, normal turgor, no rashes or lesions noted Laboratory Results - last 24 hr 07/21/19 07/21/19 09:54 18:30 Vitamin B12 656 Urine Color Yellow Urine Appearance Clear Urine pH 8.0 D Ur Specific [place] 1.009 L Urine Protein Negative Urine Glucose (UA) Negative Urine Ketones Trace H Urine Blood Negative Urine Nitrite Negative Urine Bilirubin Negative Urine Urobilinogen 0.2 Ur Leukocyte Esterase 1+ H Urine WBC (Auto) 4 Urine RBC (Auto) 0 Urine Casts (Auto) 0 U Epithel Cells (Auto) 7.7 Urine Bacteria (Auto) 48.6 Active Medications Generic Name Dose Route Start Last Admin Trade Name Freq PRN Reason Stop Dose Admin Acetaminophen/Butalbital/Caffeine 1 tablet 07/21/19 17:22 07/22/19 06:43 Fioricet - PO 1 tablet Q6H PRN Administration HEADACHE Divalproex Sodium 500 mg 07/22/19 10:08 Depakote *Er* - PO HS MARLEE Docusate Sodium 100 mg 07/22/19 10:00 Colace - PO BID MARLEE Ferrous Sulfate 325 mg 07/21/19 10:00 07/21/19 11:23 Feosol - PO 325 mg DAILY MARLEE Administration Heparin Sodium (Porcine) 5,000 unit 07/21/19 02:00 07/22/19 01:28 Heparin - SQ 5,000 unit Q8H-IV MARLEE Administration Sodium Chloride 1,000 mls @ 100 mls/hr 07/21/19 17:30 07/22/19 06:44 Normal Saline - IV 100 mls/hr ASDIR MARLEE Administration Pramipexole Dihydrochloride 0.125 mg 07/22/19 10:15 Mirapex - PO BID MARLEE ASSESSMENT/PLAN: 48 YO F with PMH of anemia (2/2 heavy menses). Presented to the ER with complaints of facial asymmetry with left sided numbness and tingling as well as weakness in the left side of the face, left arm, and left leg for the past 4 days, associated with slurred speech, intermittent blurry vision, left sided chest pain, diffuse headaches, lower back pain, and left hip pain. Admitted for suspected TIA. # Left sided pain and numbness- Neuro exam that is not reproducible with consistency, unclear if etiology is neurologic vs. mechanically limited due to pain. Thalamic stroke possible however, this is lower on my differential as on my exam the patient's neurologic findings showed some variance. Per neurology the ddx includes complicated migraines vs. labrithitis vs. restless leg syndrome. The patient needs an MRI to r/o thalamic stroke however, one cannot be obtained due to the fact that she has braces on her teeth and this would cause too much artifact. - Carotid U/S, and echo are unremarkable. - B12 nl (656) - F/U lyme titers - Neurology following, appreciate recommendations - Depakote> increase to 500 mg HS for migraine prevention - Add Zofran 4 mg IVP q8H prn (Reglan will worsen RLS) - Continue oxygen therapy for migraine - Add pramipexole 0.125 mg BID while monitoring BP - Heme-Onc consultation for eval of anemia - Obtain orthostatic BPs - IV iron supplementation - ENT consult for eval of labrinthitis, appreciate recommendations. Per their note - Suspected left sudden hearing loss with vertigo, r/o central origin given other symptoms - Recommend an immediate complete audiometric evaluation, needs to be arranged as an outpatient. - TRUCK [employer]IC imaging is reasonable given her other symptoms> best test is MRI of the IACs with ulises but cannot obtain here because pt braces - Will obtain CT of the temporal bones with IV contrast and fine cuts through the IACs, although per ENT this test is far less ideal - Utox pending # Chronic iron def anemia, due to heavy menses - F/U iron studies - IV iron infusion - F/U TV US - transfuse if Hb < 7 # CP - EKG - Trops negative x2 - appreciate Dr. Escamilla input #FEN - NS 100cc/hr - monitor lytes replete PRN - Reg diet #DVT PE - Heparin 5000 SQ #Code status - Full Code Visit type - Emergency Visit Emergency Visit: Yes ED Registration Date: 07/21/19 Care time: The patient presented to the Emergency Department on the above date and was hospitalized for further evaluation of their emergent condition. - New Patient This patient is new to me today: No - Critical Care Critical Care patient: No - Discharge Referral Referred to [facility] No ATTENDING PHYSICIAN STATEMENT I saw and evaluated the patient. I reviewed the resident's note and discussed the case with the resident. I agree with the resident's findings and plan as documented. SUBJECTIVE: OBJECTIVE: ASSESSMENT AND PLAN:
--- NOTE | 2019-07-22 10:11 | PN ---
Progress Note (short form) - Note Progress Note: NEUROLOGY PROGRESS: Events reviewed and discussed with RN. Cardiology consult read and appreciated. Pt still c/o headache with mild nausea, dizziness and reports "Tylenol" ineffective. States "something given through IV in ED" helped with headache. Yesterday loaded with Depakote 500 mg IVP and then 250 mg po last night. S/P Venifor infusion. States still with left sided arm, leg and breast "pains" and ongoing insomnia. H/H 9/29.2 -> 8.3/26.9 GALE: BP 103/62 supine. Now wearing oxygen via N/C. NEURO: Exam unchanged. 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 Suggest: Increase Depakote to 500 mg HS for migraine prophylaxis Add Zofran 4 mg IVP q8H prn (Reglan will worsen RLS) Continue oxygen therapy for migraine Add pramipexole 0.125 mg BID while monitoring BP Heme-Onc consultation for eval of anemia Thank you very much, Adal Guerrero MD
[2019-07-22] MEDS: DOCUSATE SODIUM 100 MG CAPSULE (FP) PO SCH ×2 (10:26→22:37)
[2019-07-22] MEDS: FERROUS SO4 325 MG TABLET (FP) PO SCH (10:26)
--- NOTE | 2019-07-22 10:43 | PN ---
Progress Note (short form) - Note Progress Note: s: stable L arm, face, chest, lower ext pain and face numbness. no palps, dyspnea Current Medications Acetaminophen/Butalbital/Caffeine (Fioricet -) 1 tablet PO Q6H PRN PRN Reason: HEADACHE Last Admin: 07/22/19 06:43 Dose: 1 tablet Divalproex Sodium (Depakote *Er* -) 500 mg PO HS [facility] Docusate Sodium (Colace -) 100 mg PO BID [facility] Last Admin: 07/22/19 10:26 Dose: 100 mg Ferrous Sulfate (Feosol -) 325 mg PO DAILY [facility] Last Admin: 07/22/19 10:26 Dose: 325 mg Heparin Sodium (Porcine) (Heparin -) 5,000 unit SQ Q8H-IV [facility] Last Admin: 07/22/19 10:26 Dose: 5,000 unit Sodium Chloride (Normal Saline -) 1,000 mls @ 100 mls/hr IV ASDIR [facility] Last Admin: 07/22/19 06:44 Dose: 100 mls/hr Pramipexole Dihydrochloride (Mirapex -) 0.125 mg PO BID [facility] Vital Signs Period Temp Pulse Resp BP Sys/Rogers Pulse Ox Last 24 Hr 97.8 F-99.3 F 71-86 16-18 103-136/62-84 98-100 Constitutional: Yes: No Distress, Calm Eyes: Yes: Conjunctiva Clear, EOM Intact HENT: Yes: Atraumatic, Normocephalic Neck: Yes: Supple, Trachea Midline Respiratory: Yes: Regular, CTA Bilaterally Gastrointestinal: Yes: Normal Bowel Sounds, Soft Cardiovascular: Yes: Regular Rate and Rhythm JVD: No Heart Sounds: Yes: S1, S2 Edema: No Peripheral Pulses WNL: Yes Integumentary: No: Jaundice Neurological: Yes: Alert, Oriented Psychiatric: No: Agitated Assessment/Plan EKG: sinus, nl intervals, no ischemic changes tele: sinus echo 07/2019 nl LV/RV function, tr MR, tr TR L chest pain, headache, lower ext pain, facial numbness - trop neg x 2, EKG no ischemic changes, atypical symptoms - unlikely ACS - echo unremarkable - less likely cardiac etiology, undergoing neuro workup - dc tele anemia - manage per primary
--- NOTE | 2019-07-22 10:53 | PN ---
Progress Note, HEALTH AND WELLNESS COORDINATOR - Note Progress Note: Selected Entries 07/20/19 07/21/19 07/21/19 18:51 09:11 13:06 Breakfast Diet Tolerated Supper Temperature 98.1 F 98.0 F Blood Pressure 118/80 Blood Pressure 98/61 [Left Arm] Blood Pressure 136/83 [Left side Sitting] Blood Pressure 122/77 [Left side Standing] Blood Pressure 123/81 [Left side Supine] 07/21/19 07/21/19 07/21/19 18:00 21:00 23:00 Breakfast Diet Tolerated Supper 100% Temperature 99.3 F 97.8 F Blood Pressure Blood Pressure [Left Arm] Blood Pressure [Left side Sitting] Blood Pressure [Left side Standing] Blood Pressure [Left side Supine] 07/22/19 07/22/19 07/22/19 02:00 06:00 10:06 Breakfast 75% Diet Tolerated Fair Well Supper Temperature 98.7 F 98.2 F Blood Pressure Blood Pressure [Left Arm] Blood Pressure [Left side Sitting] Blood Pressure [Left side Standing] Blood Pressure [Left side Supine] 07/22/19 10:34 Breakfast Diet Tolerated Supper Temperature 97.9 F Blood Pressure Blood Pressure [Left Arm] Blood Pressure [Left side Sitting] Blood Pressure [Left side Standing] Blood Pressure [Left side Supine] Laboratory Tests 07/20/19 07/21/19 20:02 08:45 WBC 9.2 6.7 Pt on reg diet/thin liquid with good tolerance. w/u in progress.
--- NOTE | 2019-07-22 11:09 | EKG ---
Test Reason : Blood Pressure : / mmHG Vent. Rate : 062 BPM Atrial Rate : 062 BPM P-R Int : 122 ms QRS Dur : 086 ms QT Int : 426 ms P-R-T Axes : 073 062 068 degrees QTc Int : 432 ms NORMAL SINUS RHYTHM NORMAL ECG WHEN COMPARED WITH ECG OF 20-JUL-2019 18:45, NO SIGNIFICANT CHANGE WAS FOUND Confirmed by AB BOWMAN, ONELIA ([id number]) on 07/22/2019 11:09:14 AM Referred By: Xin GAR Confirmed By:ONELIA BERGER MD
[2019-07-22 11:19] LABS: HEMATOCRIT 26.9 % (32.4-45.2); HEMOGLOBIN 8.3 GM/dL (10.7-15.3); MCH 23.6 pg (25.7-33.7); MCHC 30.6 g/dl (32.0-36.0); MEAN PLT VOLUME 8.5 fl (7.5-11.1); PLATELET COUNT 323 K/MM3 (134-434); RDW 18.3 % (11.6-15.6); WHITE BLOOD COUNT 6.9 K/mm3 (4.0-10.0)
[2019-07-22] MEDS: PRAMIPEXOLE DIHYDROCHLORIDE 0.125 MG TABLET PO SCH ×2 (11:30→22:37)
[2019-07-22 11:35] LABS: BLOOD UREA NITROGEN 7.5 mg/dL (7-18); CALCIUM 8.5 mg/dL (8.5-10.1); CREATININE 0.5 mg/dL (0.55-1.3); POTASSIUM 3.9 mmol/L (3.5-5.1)
--- NOTE | 2019-07-22 16:13 | CONSULT ---
Consult - text type - Consultation Consultation Note: ENT consult 48 yo woman c/o multiple issues with weakness on the left side of her body. 3 days ago, became aware of pulsatile tinnitus in the left ear, decreased hearing in the left ear, and vaguely vertiginous dizziness at times. P/WDWN HF laying comfortably in bed in NAD [place] to the right (512) ac>bc AU Ear canals and TMs are normal Nose, throat and neck are normal except mild tenderness of the upper left SCM/ TMJ region Gaze: bilateral direction changing nystagmus, mild, worse on the right Imp: suspected left sudden hearing loss with vertigo, r/o central origin given other symptoms Recommend an immediate complete audiometric evaluation. This is not offered in the hospital, so it needs to be arranged as an outpatient, or the patient can be transported to my office for the test, following which a discussion regarding appropriate therapy can be held. PROP SETTER imaging is reasonable given her other symptoms. The best test would be an MRI of the IACs with ulises. Far less preferable would be a CT of the temporal bones with IV contrast and fine cuts through the IACs.
[2019-07-22] MEDS ORDERED: DIVALPROEX NA *ER* EXTEND REL 500 MG TABLET.SA (FP) PO SCH (22:00)
[2019-07-22] MEDS ORDERED: PT OWN MED DRAWER 7, Y5N ONE (22:33)
[2019-07-23] MEDS ORDERED: ONDANSETRON 4 MG/2 ML VIAL IVPUSH PRN (00:23)
[2019-07-23] MEDS ORDERED: IBUPROFEN 400 MG TABLET (FP) PO ONE (00:51)
[2019-07-23] MEDS: HEPARIN NA (PORCINE) 5,000 UNITS/ML 1ML VIAL SQ SCH ×3 (05:30→22:29)
[2019-07-23 06:00] LABS: HEMATOCRIT 25.1 % (32.4-45.2); HEMOGLOBIN 7.9 GM/dL (10.7-15.3); MCH 23.9 pg (25.7-33.7); MCHC 31.4 g/dl (32.0-36.0); MEAN CELL VOLUME 76.2 fl (80-96); MEAN PLT VOLUME 8.4 fl (7.5-11.1); PLATELET COUNT 304 K/MM3 (134-434); RDW 18.1 % (11.6-15.6); WHITE BLOOD COUNT 7.1 K/mm3 (4.0-10.0)
[2019-07-23] MEDS ORDERED: ACETAMINOPHEN 500 MG TABLET (FP) PO ONE (06:10)
[2019-07-23 06:31] LABS: BLOOD UREA NITROGEN 8.7 mg/dL (7-18); CALCIUM 8.6 mg/dL (8.5-10.1); CREATININE 0.5 mg/dL (0.55-1.3)
[2019-07-23] MEDS ORDERED: PT OWN MED DRAWER 7, Y5N ONE (09:50)
[2019-07-23] MEDS: DOCUSATE SODIUM 100 MG CAPSULE (FP) PO SCH ×2 (09:56→22:29)
[2019-07-23] MEDS: FERROUS SO4 325 MG TABLET (FP) PO SCH ×2 (09:56→10:15)
[2019-07-23] MEDS: PRAMIPEXOLE DIHYDROCHLORIDE 0.125 MG TABLET PO SCH ×2 (09:56→22:37)
--- NOTE | 2019-07-23 11:42 | PN ---
Progress Note (short form) - Note Progress Note: s: stable L arm, face, chest, lower ext pain and face numbness. no palps, dyspnea, cp Current Medications Generic Name Dose Route Start Last Admin Trade Name Freq PRN Reason Stop Dose Admin Acetaminophen/Butalbital/Caffeine 1 tablet 07/21/19 17:22 07/22/19 22:41 Fioricet - PO 1 tablet Q6H PRN Administration HEADACHE Divalproex Sodium 500 mg 07/22/19 22:00 07/22/19 22:37 Depakote *Er* - PO 500 mg HS MARLEE Administration Docusate Sodium 100 mg 07/22/19 10:00 07/23/19 09:56 Colace - PO 100 mg BID MARLEE Administration Ferrous Sulfate 325 mg 07/21/19 10:00 07/23/19 10:15 Feosol - PO Not Given DAILY MARLEE Heparin Sodium (Porcine) 5,000 unit 07/23/19 00:56 07/23/19 05:30 Heparin - SQ 5,000 unit TID MARLEE Administration Sodium Chloride 1,000 mls @ 100 mls/hr 07/21/19 17:30 07/22/19 20:26 Normal Saline - IV 100 mls/hr ASDIR MARLEE Administration Ondansetron HCl 4 mg 07/23/19 00:23 07/23/19 01:03 Zofran Injection IVPUSH 4 mg Q8H PRN Administration NAUSEA Pramipexole Dihydrochloride 0.125 mg 07/22/19 10:15 07/23/19 09:56 Mirapex - PO 0.125 mg BID MARLEE Administration Vital Signs Period Temp Pulse Resp BP Sys/Rogers Pulse Ox Last 24 Hr 97.8 F-99.3 F 63-79 16-18 103-121/67-82 98 Constitutional: Yes: No Distress, Calm Eyes: Yes: Conjunctiva Clear Neck: Yes: Supple, Trachea Midline Respiratory: Yes: Regular, CTA Bilaterally Gastrointestinal: Yes: Normal Bowel Sounds, Soft Cardiovascular: Yes: Regular Rate and Rhythm JVD: No Heart Sounds: Yes: S1, S2 Edema: No Peripheral Pulses WNL: Yes Integumentary: No: Jaundice Neurological: Yes: Alert, Oriented Psychiatric: No: Agitated CBC, BMP 07/23/19 05:20 07/23/19 05:20 Assessment/Plan EKG: sinus, nl intervals, no ischemic changes tele: sinus echo 07/2019 nl LV/RV function, tr MR, tr TR L chest pain, headache, lower ext pain, facial numbness - trop neg x 2, EKG no ischemic changes, atypical symptoms - unlikely ACS - echo unremarkable - less likely cardiac etiology, undergoing neuro workup - dc tele anemia - manage per primary
[2019-07-23 12:21] LABS: URINE APPEARANCE CLEAR; URINE BILIRUBIN NEGATIVE (NEGATIVE); URINE COLOR YELLOW; URINE GLUCOSE (UA) NEGATIVE (NEGATIVE); URINE KETONE TRACE (NEGATIVE); URINE LEUK ESTERASE NEGATIVE (NEGATIVE); URINE NITRITE NEGATIVE (NEGATIVE); URINE PROTEIN NEGATIVE (NEGATIVE); URINE UROBILINOGEN 0.2 mg/dL (0.2-1.0)
--- NOTE | 2019-07-23 12:32 | CONSULT ---
Consultation: REQUESTING PROVIDER: Dr. Azevedo CONSULT REQUEST: We have been asked to medically evaluate this patient for Anemia HISTORY OF PRESENT ILLNESS: 48 year old, tongan-speaking female with a history of heavy menses and anemia ( 2 transfusions in 2017) came to the ER with neurologic complaints of facial asymmetry and L sided numbness and L sided weakness for several days. She reports that her symptoms have barely improved since admission. Complains of left sided chest pain, headaches, eye pain. No recent travel or sick contacts. Found to be anemic, heme is consulted for evaluation of anemia. Patient reports heavy periods with significant blood loss and multiple pads used. Last menstrual period ended at the end of June and lasted 3 weeks. Reports mild L sided breast pain. No active bleeding. Allergies: NKDA Surgeries: L ovarian cyst surgery 2 years ago, appendectomy 20 years ago Smoking: denies Alcohol: sometimes Drugs: denies Family History: Mother with breast CA, DM, father passed from pneumonia, brother had DM REVIEW OF SYSTEMS: CONSTITUTIONAL: Absent: fever, chills, diaphoresis, generalized weakness, malaise, loss of appetite, weight change HEENT: eye pain Absent: rhinorrhea, nasal congestion, throat pain, throat swelling, difficulty swallowing, mouth swelling, ear pain, visual changes CARDIOVASCULAR: chest pain Absent: , syncope, palpitations, irregular heart rate, lightheadedness, peripheral edema RESPIRATORY: Absent: cough, shortness of breath, dyspnea with exertion, orthopnea, wheezing, stridor, hemoptysis GASTROINTESTINAL: Absent: abdominal pain, abdominal distension, nausea, vomiting, diarrhea, constipation, melena, hematochezia GENITOURINARY: Absent: dysuria, frequency, urgency, hesitancy, hematuria, flank pain, genital pain MUSCULOSKELETAL: Absent: myalgia, arthralgia, joint swelling, back pain, neck pain SKIN: Absent: rash, itching, pallor HEMATOLOGIC/IMMUNOLOGIC: Absent: easy bleeding, easy bruising, lymphadenopathy, frequent infections ENDOCRINE: Absent: unexplained weight gain, unexplained weight loss, heat intolerance, cold intolerance NEUROLOGIC: Absent: headache, focal weakness or paresthesias, dizziness, unsteady gait, seizure, mental status changes, bladder or bowel incontinence PSYCHIATRIC: Absent: anxiety, depression, suicidal or homicidal ideation, hallucinations. PHYSICAL EXAMINATION Vital Signs - 24 hr 07/22/19 07/22/19 07/22/19 14:18 18:00 21:00 Temperature 98.9 F 97.8 F Pulse Rate 76 76 Respiratory 16 18 Rate Blood Pressure 111/78 103/67 O2 Sat by Pulse 98 Oximetry (%) 07/22/19 07/23/19 07/23/19 22:00 02:00 06:00 Temperature 97.9 F 97.9 F 98.7 F Pulse Rate 63 79 72 Respiratory 18 18 18 Rate Blood Pressure 116/82 121/72 109/74 O2 Sat by Pulse Oximetry (%) 07/23/19 09:57 Temperature 99.3 F Pulse Rate 79 Respiratory 18 Rate Blood Pressure 111/70 O2 Sat by Pulse Oximetry (%) GENERAL: A&Ox3, no acute distress EYES: PERRLA, EOMI ENT: Moist mucus membranes NECK: No JVD LUNGS: CTA, no wheezes BREAST: L sided breast pain in the lower outer quadrant, fibrocystic changes in the area HEART: RRR, no murmurs ABDOMEN: Soft, nontender, BS present MUSCULOSKELETAL: No CVA Tenderness EXTREMITIES: 2+ pulses, no edema. NEUROLOGICAL: L sided sensory deficit, motor strength intact Laboratory Results - last 24 hr 07/21/19 07/21/19 07/23/19 09:54 11:30 05:20 WBC 7.1 RBC 3.30 L Hgb 7.9 L Hct 25.1 L MCV 76.2 L MCH 23.9 L MCHC 31.4 L RDW 18.1 H Plt Count 304 MPV 8.4 Sodium Potassium Chloride Carbon Dioxide Anion Gap BUN Creatinine Est GFR (CKD-EPI)AfAm Est GFR (CKD-EPI)NonAf Random Glucose Calcium Urine Color Yellow Urine Appearance Clear Urine pH 6.0 Ur Specific [place] 1.017 Urine Protein Negative Urine Glucose (UA) Negative Urine Ketones Trace H Urine Blood Negative Urine Nitrite Negative Urine Bilirubin Negative Urine Urobilinogen 0.2 Ur Leukocyte Esterase Negative Lyme Screen IgG & IgM <0.91 07/23/19 05:20 WBC RBC Hgb Hct MCV MCH MCHC RDW Plt Count MPV Sodium 140 Potassium 4.0 Chloride 109 H Carbon Dioxide 23 Anion Gap 9 BUN 8.7 Creatinine 0.5 L Est GFR (CKD-EPI)AfAm 131.72 Est GFR (CKD-EPI)NonAf 113.65 Random Glucose 90 Calcium 8.6 Urine Color Urine Appearance Urine pH Ur Specific [place] Urine Protein Urine Glucose (UA) Urine Ketones Urine Blood Urine Nitrite Urine Bilirubin Urine Urobilinogen Ur Leukocyte Esterase Lyme Screen IgG & IgM Active Medications Generic Name Dose Route Start Last Admin Trade Name Felice PRN Reason Stop Dose Admin Acetaminophen/Butalbital/Caffeine 1 tablet 07/21/19 17:22 07/22/19 22:41 Fioricet - PO 1 tablet Q6H PRN Administration HEADACHE Divalproex Sodium 500 mg 07/22/19 22:00 07/22/19 22:37 Depakote *Er* - PO 500 mg HS MARLEE Administration Docusate Sodium 100 mg 07/22/19 10:00 07/23/19 09:56 Colace - PO 100 mg BID MARLEE Administration Ferrous Sulfate 325 mg 07/21/19 10:00 07/23/19 10:15 Feosol - PO Not Given DAILY MARLEE Heparin Sodium (Porcine) 5,000 unit 07/23/19 00:56 07/23/19 05:30 Heparin - SQ 5,000 unit TID MARLEE Administration Sodium Chloride 1,000 mls @ 100 mls/hr 07/21/19 17:30 07/22/19 20:26 Normal Saline - IV 100 mls/hr ASDIR MARLEE Administration Ondansetron HCl 4 mg 07/23/19 00:23 07/23/19 01:03 Zofran Injection IVPUSH 4 mg Q8H PRN Administration NAUSEA Pramipexole Dihydrochloride 0.125 mg 07/22/19 10:15 07/23/19 09:56 Mirapex - PO 0.125 mg BID MARLEE Administration ASSESSMENT/PLAN: 48 year old, tongan-speaking female with a history of heavy menses and anemia ( 2 transfusions in 2017) came to the ER with neurologic complaints of facial asymmetry and L sided numbness and L sided weakness for several days. Hematology is consulted for anemia. #Microcytic Anemia: iron studies suggestive of iron-deficiency, patient has received 1 dose of venofer -corrected reticulocyte count 1.4 -peripheral smear appears to show nonspecific poikilocytosis -will order B12/folate/LDH/haptoglobin, however can be followed as outpatient -can give another dose of venofer -can give venofer 200mg every Q3 days for 14 days total (total of 5 doses) for a maximum of 1000mg per 14 day period -monitor for bleeding -at the present moment, appears to be iron deficiency anemia and can be managed with IV iron infusions as an outpatient as mentioned above. Grover Neal, PGY3 Discussed with Dr. Leon Visit type - Emergency Visit Emergency Visit: No - New Patient This patient is new to me today: Yes Date on this admission: 07/23/19 - Critical Care Critical Care patient: No ATTENDING PHYSICIAN STATEMENT I saw and evaluated the patient. I reviewed the resident's note and discussed the case with the resident. I agree with the resident's findings and plan as documented. SUBJECTIVE: OBJECTIVE: ASSESSMENT AND PLAN:
[2019-07-23] MEDS: ACETAMINOPHEN/CAFFEINE/BUTALBITAL 1 TAB PO PRN ×2 (13:22→19:20)
[2019-07-23 13:51] LABS: COCAINE, UR NEGATIVE ng/ml (CUTOFF=300); METHADONE, UR NEGATIVE ng/ml (CUTOFF=300); OPIATES, URI NEGATIVE ng/ml (CUTOFF=300); PHENCYCLIDINE,URINE NEGATIVE ng/ml (CUTOFF=25); URINE AMPHETAMINES NEGATIVE ng/ml (CUTOFF=500); URINE BENZODIAZEPINES NEGATIVE ng/ml (CUTOFF=200)
[2019-07-23 13:55] LABS: URINE BARBITURATES POSITIVE ng/ml (CUTOFF=200)
--- NOTE | 2019-07-23 17:34 | PN ---
Physical Exam: SUBJECTIVE: Patient seen and examined OBJECTIVE: Vital Signs Period Temp Pulse Resp BP Sys/Rogers Pulse Ox Last 24 Hr 97.8 F-99.3 F 63-79 16-18 103-121/67-82 98-98 GENERAL: The patient is awake, alert, and fully oriented, in no acute distress. HEAD: Normal with no signs of trauma. EYES: PERRL, extraocular movements intact, sclera anicteric, conjunctiva clear. No ptosis. ENT: Ears normal, nares patent, oropharynx clear without exudates, moist mucous membranes. NECK: Trachea midline, full range of motion, supple. LUNGS: Breath sounds equal, clear to auscultation bilaterally, no wheezes, no crackles, no accessory muscle use. HEART: Regular rate and rhythm, S1, S2 without murmur, rub or gallop. ABDOMEN: Soft, nontender, nondistended, normoactive bowel sounds, no guarding, no rebound, no hepatosplenomegaly, no masses. EXTREMITIES: 2+ pulses, warm, well-perfused, no edema. NEUROLOGICAL: Cranial nerves II through XII grossly intact. Normal speech, gait not observed. PSYCH: Normal mood, normal affect. SKIN: Warm, dry, normal turgor, no rashes or lesions noted Laboratory Results - last 24 hr 07/21/19 07/21/19 07/23/19 09:54 11:30 05:20 WBC 7.1 RBC 3.30 L Hgb 7.9 L Hct 25.1 L MCV 76.2 L MCH 23.9 L MCHC 31.4 L RDW 18.1 H Plt Count 304 MPV 8.4 Sodium Potassium Chloride Carbon Dioxide Anion Gap BUN Creatinine Est GFR (CKD-EPI)AfAm Est GFR (CKD-EPI)NonAf Random Glucose Calcium Urine Color Yellow Urine Appearance Clear Urine pH 6.0 Ur Specific [place]uther[place] 1.017 Urine Protein Negative Urine Glucose (UA) Negative Urine Ketones Trace H Urine Blood Negative Urine Nitrite Negative Urine Bilirubin Negative Urine Urobilinogen 0.2 Ur Leukocyte Esterase Negative Opiates Screen Methadone Screen Barbiturate Screen Phencyclidine Screen Ur Amphetamines Screen MDMA (Ecstasy) Screen Benzodiazepines Screen Cocaine Screen U Marijuana (THC) Screen Lyme Screen IgG & IgM <0.91 07/23/19 07/23/19 05:20 11:30 WBC RBC Hgb Hct MCV MCH MCHC RDW Plt Count MPV Sodium 140 Potassium 4.0 Chloride 109 H Carbon Dioxide 23 Anion Gap 9 BUN 8.7 Creatinine 0.5 L Est GFR (CKD-EPI)AfAm 131.72 Est GFR (CKD-EPI)NonAf 113.65 Random Glucose 90 Calcium 8.6 Urine Color Urine Appearance Urine pH Ur Specific [place] Urine Protein Urine Glucose (UA) Urine Ketones Urine Blood Urine Nitrite Urine Bilirubin Urine Urobilinogen Ur Leukocyte Esterase Opiates Screen Negative Methadone Screen Negative Barbiturate Screen Positive A* Phencyclidine Screen Negative Ur Amphetamines Screen Negative MDMA (Ecstasy) Screen Negative Benzodiazepines Screen Negative Cocaine Screen Negative U Marijuana (THC) Screen Negative Lyme Screen IgG & IgM Active Medications Generic Name Dose Route Start Last Admin Trade Name Freq PRN Reason Stop Dose Admin Acetaminophen/Butalbital/Caffeine 1 tablet 07/21/19 17:22 07/23/19 13:22 Fioricet - PO 1 tablet Q6H PRN Administration HEADACHE Cyclobenzaprine HCl 2.5 mg 07/24/19 10:00 Cyclobenzaprine Hcl PO DAILY MARLEE Divalproex Sodium 500 mg 07/22/19 22:00 07/22/19 22:37 Depakote *Er* - PO 500 mg HS MARLEE Administration Docusate Sodium 100 mg 07/22/19 10:00 07/23/19 09:56 Colace - PO 100 mg BID MARLEE Administration Ferrous Sulfate 325 mg 07/21/19 10:00 07/23/19 10:15 Feosol - PO Not Given DAILY MARLEE Heparin Sodium (Porcine) 5,000 unit 07/23/19 00:56 07/23/19 13:21 Heparin - SQ 5,000 unit TID MARLEE Administration Sodium Chloride 1,000 mls @ 100 mls/hr 07/21/19 17:30 07/22/19 20:26 Normal Saline - IV 100 mls/hr ASDIR MARLEE Administration Ondansetron HCl 4 mg 07/23/19 00:23 07/23/19 01:03 Zofran Injection IVPUSH 4 mg Q8H PRN Administration NAUSEA Pramipexole Dihydrochloride 0.125 mg 07/22/19 10:15 07/23/19 09:56 Mirapex - PO 0.125 mg BID MARLEE Administration ASSESSMENT/PLAN: 48 YO F with PMH of anemia (2/2 heavy menses). Presented to the ER with complaints of facial asymmetry with left sided numbness and tingling as well as weakness in the left side of the face, left arm, and left leg for the past 4 days, associated with slurred speech, intermittent blurry vision, left sided chest pain, diffuse headaches, lower back pain, and left hip pain. Admitted for suspected TIA. # Left sided pain and numbness- Neuro exam that is not reproducible with consistency, unclear if etiology is neurologic vs. mechanically limited due to pain. Thalamic stroke possible however, this is lower on my differential as on my exam the patient's neurologic findings showed some variance. Per neurology the ddx includes complicated migraines vs. labrithitis vs. restless leg syndrome. The patient needs an MRI to r/o thalamic stroke however, one cannot be obtained due to the fact that she has braces on her teeth and this would cause too much artifact. - Carotid U/S, and echo are unremarkable. - B12 nl (656) - F/U lyme titers - Neurology following, appreciate recommendations - Depakote> increase to 500 mg HS for migraine prevention - Add Zofran 4 mg IVP q8H prn (Reglan will worsen RLS) - Continue oxygen therapy for migraine - Add pramipexole 0.125 mg BID while monitoring BP - Heme-Onc consultation for eval of anemia - orthostatic BPs negative (supine 104/67, sitting 104/65, standing 113/73) - IV iron supplementation - ENT consult for eval of labrinthitis, appreciate recommendations. Per their note - Suspected left sudden hearing loss with vertigo, r/o central origin given other symptoms - Recommend an immediate complete audiometric evaluation, needs to be arranged as an outpatient. - LABORATORY PHLEBOTOMIST imaging is reasonable given her other symptoms> best test is MRI of the IACs with ulises but cannot obtain here because pt braces - Will obtain CT of the temporal bones with IV contrast and fine cuts through the IACs, although per ENT this test is far less ideal - Utox negative except barbituates # Chronic iron def anemia, due to heavy menses> heme onc following, appreciate recommendations - Per Dr. Neal's note: - iron studies suggestive of iron-deficiency, patient receiving venofer - corrected reticulocyte count 1.4 - peripheral smear appears to show poikilocytosis with possible acanthocytes , multilibular neutrophils -F/U B12/folate/LDH/haptoglobin - continue venofer - can give venofer 200mg every Q3 days for 14 days total (total of 5 doses) for a maximum of 1000mg per 14 day period - monitor for bleeding - F/U TV US - transfuse if Hb < 7 # Septated ovarian cyst: - obtaining SCOUT LEASER consult for further evaluation # CP - EKG - Trops negative x2 - appreciate cardiology recommendations - will DC telemetry as cardiac etiology unlikely #FEN - NS 100cc/hr - monitor lytes replete PRN - Reg diet #DVT PE - Heparin 5000 SQ #Code status - Full Code Visit type - Emergency Visit Emergency Visit: Yes ED Registration Date: 07/21/19 Care time: The patient presented to the Emergency Department on the above date and was hospitalized for further evaluation of their emergent condition. - New Patient This patient is new to me today: No - Critical Care Critical Care patient: No - Discharge Referral Referred to [facility] Med P.C[facility] No ATTENDING PHYSICIAN STATEMENT I saw and evaluated the patient. I reviewed the resident's note and discussed the case with the resident. I agree with the resident's findings and plan as documented. SUBJECTIVE: OBJECTIVE: ASSESSMENT AND PLAN:
[2019-07-23] MEDS: SODIUM CHLORIDE 1,000 ML IV SCH (21:15)
--- NOTE | 2019-07-23 21:54 | PN ---
Teaching Attending Note Name of Resident: Alison Campo ATTENDING PHYSICIAN STATEMENT I saw and evaluated the patient. I reviewed the resident's note and discussed the case with the resident. I agree with the resident's findings and plan as documented. SUBJECTIVE: Patient continues to c/o having nausea. OBJECTIVE: Vital Signs Temperature 98.4 F 07/23/19 21:13 Pulse Rate 72 07/23/19 21:13 Respiratory Rate 18 07/23/19 21:13 Blood Pressure 107/75 07/23/19 21:13 O2 Sat by Pulse Oximetry (%) 98 07/23/19 09:00 GENERAL: The patient is awake, alert, and fully oriented, in no acute distress. HEAD: Normal with no signs of trauma. EYES: PERRL, extraocular movements intact, sclera anicteric, conjunctiva clear. ENT: Ears normal, oropharynx clear without exudates, moist mucous membranes. NECK: Trachea midline, full range of motion, supple. LUNGS: Breath sounds equal, clear to auscultation bilaterally, no wheezes, no crackles, no accessory muscle use. HEART: Regular rate and rhythm, S1, S2 without murmur, rub or gallop. ABDOMEN: Soft,NT,ND, normoactive bowel sounds, no guarding, no rebound, no hepatosplenomegaly, no masses. EXTREMITIES: 2+ pulses, warm, well-perfused, no edema. NEUROLOGICAL: Cranial nerves II through XII grossly intact. Normal speech, gait is stable but no weakness noted . PSYCH: Normal mood, normal affect. SKIN: Warm, dry, normal turgor, no rashes or lesions noted CBCD WBC 7.1 K/mm3 (4.0-10.0) 07/23/19 05:20 RBC 3.30 M/mm3 (3.60-5.2) L 07/23/19 05:20 Hgb 7.9 GM/dL (10.7-15.3) L 07/23/19 05:20 Hct 25.1 % (32.4-45.2) L 07/23/19 05:20 MCV 76.2 fl (80-96) L 07/23/19 05:20 MCHC 31.4 g/dl (32.0-36.0) L 07/23/19 05:20 RDW 18.1 % (11.6-15.6) H 07/23/19 05:20 Plt Count 304 K/MM3 (134-434) 07/23/19 05:20 MPV 8.4 fl (7.5-11.1) 07/23/19 05:20 CMP Sodium 140 mmol/L (136-145) 07/23/19 05:20 Potassium 4.0 mmol/L (3.5-5.1) 07/23/19 05:20 Chloride 109 mmol/L (98-107) H 07/23/19 05:20 Carbon Dioxide 23 mmol/L (21-32) 07/23/19 05:20 Anion Gap 9 MMOL/L (8-16) 07/23/19 05:20 BUN 8.7 mg/dL (7-18) 07/23/19 05:20 Creatinine 0.5 mg/dL (0.55-1.3) L 07/23/19 05:20 Random Glucose 90 mg/dL (74-106) 07/23/19 05:20 Calcium 8.6 mg/dL (8.5-10.1) 07/23/19 05:20 Total Bilirubin 0.6 mg/dL (0.2-1) 07/21/19 08:45 AST 11 U/L (15-37) L 07/21/19 08:45 ALT 12 U/L (13-61) L 07/21/19 08:45 Alkaline Phosphatase 42 U/L (45-117) L 07/21/19 08:45 Total Protein 6.0 g/dl (6.4-8.2) L 07/21/19 08:45 Albumin 3.3 g/dl (3.4-5.0) L 07/21/19 08:45 CARDIAC ENZYMES Creatine Kinase 43 U/L (26-192) 07/21/19 08:45 Troponin I < 0.02 ng/ml (0.00-0.05) 07/21/19 08:45 Current Medications Generic Name Dose Route Start Last Admin Trade Name Freq PRN Reason Stop Dose Admin Acetaminophen/Butalbital/Caffeine 1 tablet 07/23/19 21:07 Fioricet - PO Q6H PRN HEADACHE Cyclobenzaprine HCl 2.5 mg 07/24/19 10:00 Cyclobenzaprine Hcl PO DAILY MARLEE Divalproex Sodium 500 mg 07/23/19 22:00 Depakote *Er* - PO HS MARLEE Docusate Sodium 100 mg 07/23/19 22:00 Colace - PO BID MARLEE Ferrous Sulfate 325 mg 07/24/19 10:00 Feosol - PO DAILY MARLEE Heparin Sodium (Porcine) 5,000 unit 07/23/19 22:00 Heparin - SQ TID [facility] Sodium Chloride 1,000 mls @ 100 mls/hr 07/23/19 21:07 Normal Saline - IV ASDIR MARLEE Ondansetron HCl 4 mg 07/23/19 21:07 Zofran Injection IVPUSH Q8H PRN NAUSEA Pramipexole Dihydrochloride 0.125 mg 07/23/19 22:00 Mirapex - PO BID [facility] Home Medications Medication Instructions Recorded Docusate Sodium [Colace] 100 mg PO DAILY 30 Days #30 capsule 07/23/19 Ferrous Sulfate 325 mg PO TID 30 Days #90 tablet 07/23/19 ASSESSMENT AND PLAN: Patient is a 48yo female with PMHx of iron def anemia due to heavy menstrual period, who presented with L sided weakness, numbness , and pain in addition to reproducable CP. # Acute iron deficiency anemia over chronic: s/p 3 iron infusion by her PCP last month, and given 1x infusion at this hospitalization. # Septated cyst : and TV US ( thick endometrium) with septated cyst will get OBGYn to see the patient. patient has an appointment with her FOOD BAGGING MACHINE OPERATOR ( on 08/17) # L sided pain and numbness on . the proximal muscle weakness in LUe and LLE aggrevated with iron deficenincy anemia n. # atypical CP:unlikely ACS ; EKG and trop reviewed, trop neg x 2, EKG no ischemic changes, atypical symptoms echo unremarkable # Migraine headache : as per neuro patient started on Fioricet, and depakote neuro on board DVT PX : heparin sq
[2019-07-23] MEDS: ONDANSETRON 4 MG/2 ML VIAL IVPUSH PRN (22:29)
[2019-07-23] MEDS: DIVALPROEX NA *ER* EXTEND REL 500 MG TABLET.SA (FP) PO SCH (22:37)
[2019-07-23] MEDS ORDERED: MELATONIN 5 MG TABLETS PO ONE (22:55)
--- NOTE | 2019-07-24 00:01 | CONS ---
DATE OF CONSULTATION: 07/23/2019 REASON FOR CONSULTATION: Right ovarian cyst and heavy period. HISTORY OF PRESENT ILLNESS: Patient is a 48-year-old female who has past history of heavy menses and anemia and she had had previous blood transfusion. She was admitted with some neurological complaint of facial numbness and left sided chest pain. Found to have hemoglobin of 7.9 and hematocrit of 25.1, states that last month her period lasted 3 weeks. She is denying any vaginal bleeding at present time and has no pelvic pain. PAST MEDICAL HISTORY: She said she has had 4 normal spontaneous vaginal deliveries and previous history of ovarian cystectomy. Her Pap smears have been normal. She has been followed by her FUNERAL DIRECTOR/EMBALMER/OWNER, Dr. Bceker and Dr. Duarte. PHYSICAL EXAMINATION: Vital signs: Stable, afebrile. General: Patient was alert, oriented, and comfortable. Abdomen: Soft, no distention, nontender, no CVA. Pelvic: External genitalia normal. Vagina was normal. No blood. No vaginal discharge. Cervix was clean. No discharge. No cervical motion tenderness. Uterus was slightly prominent adnexa no masses palpable. Transvaginal sonogram had showed 3.5-cm right ovarian cyst, endometrium was normal, no evidence of fibroid. IMPRESSION: Menorrhagia, most likely secondary to adenomyosis, rule out an ovulatory bleeding secondary to perimenopausal. Right ovarian cyst most likely corpus luteum cyst. Patient was advised to follow up with her FUNERAL DIRECTOR/EMBALMER/OWNER. Iron, vitamins at present time. Treatment including oral contraception and Depo-Provera or Mirena IUD discussed. Patient stated she is desiring to get and declined hormonal treatment. Advised to repeat sonogram after the next period for followup of ovarian cyst and interval growth of the cyst. Importance of followup with her FUNERAL DIRECTOR/EMBALMER/OWNER discussed. CEDRIC FREITAS M.D. [id number]
[2019-07-24] MEDS: ACETAMINOPHEN/CAFFEINE/BUTALBITAL 1 TAB PO PRN ×2 (03:42→10:25)
[2019-07-24] MEDS: SODIUM CHLORIDE 1,000 ML IV SCH ×2 (03:43→23:45)
[2019-07-24] MEDS: HEPARIN NA (PORCINE) 5,000 UNITS/ML 1ML VIAL SQ SCH ×3 (06:40→23:44)
[2019-07-24 08:08] LABS: HEMATOCRIT 24.7 % (32.4-45.2); HEMOGLOBIN 7.6 GM/dL (10.7-15.3); MCH 24.2 pg (25.7-33.7); MCHC 30.9 g/dl (32.0-36.0); MEAN CELL VOLUME 78.4 fl (80-96); MEAN PLT VOLUME 9.4 fl (7.5-11.1); PLATELET COUNT 277 K/MM3 (134-434); RBC 3.15 M/mm3 (3.60-5.2); RDW 17.7 % (11.6-15.6); WHITE BLOOD COUNT 7.8 K/mm3 (4.0-10.0)
[2019-07-24 08:28] LABS: BLOOD UREA NITROGEN 8.6 mg/dL (7-18); CREATININE 0.5 mg/dL (0.55-1.3); POTASSIUM 3.9 mmol/L (3.5-5.1)
--- NOTE | 2019-07-24 09:35 | PN ---
Teaching Attending Note Name of Resident: Chinyere Monsalve ATTENDING PHYSICIAN STATEMENT I saw and evaluated the patient. I reviewed the resident's note and discussed the case with the resident. I agree with the resident's findings and plan as documented. SUBJECTIVE: Patient states that she feels nauseas. getting IV iron. patients states that she does not want to go home since does not feel well. OBJECTIVE: Vital Signs Temperature 98 F 07/24/19 06:06 Pulse Rate 66 07/24/19 06:06 Respiratory Rate 16 07/24/19 06:06 Blood Pressure 98/63 07/24/19 06:06 O2 Sat by Pulse Oximetry (%) 98 07/23/19 21:00 GENERAL: The patient is awake, alert, and fully oriented, in no acute distress. HEAD: Normal with no signs of trauma. EYES: PERRL, extraocular movements intact, sclera anicteric, conjunctiva clear. ENT: Ears normal,patent, oropharynx clear without exudates, moist mucous membranes.positive for braces NECK: Trachea midline, full range of motion, supple. LUNGS: Breath sounds equal, clear to auscultation bilaterally, no wheezes, no crackles, no accessory muscle use. HEART: Regular rate and rhythm, S1, S2 without murmur, rub or gallop. ABDOMEN: Soft, NT,ND, normoactive bowel sounds, no guarding, no rebound, no hepatosplenomegaly, no masses. EXTREMITIES: 2+ pulses, warm, well-perfused, no edema. NEUROLOGICAL: Cranial nerves II through XII grossly intact. Normal speech. PSYCH: Normal mood, normal affect. SKIN: Warm, dry, normal turgor, no rashes or lesions noted CBCD WBC 7.8 K/mm3 (4.0-10.0) 07/24/19 05:30 RBC 3.15 M/mm3 (3.60-5.2) L 07/24/19 05:30 Hgb 7.6 GM/dL (10.7-15.3) L 07/24/19 05:30 Hct 24.7 % (32.4-45.2) L 07/24/19 05:30 MCV 78.4 fl (80-96) L 07/24/19 05:30 MCHC 30.9 g/dl (32.0-36.0) L 07/24/19 05:30 RDW 17.7 % (11.6-15.6) H 07/24/19 05:30 Plt Count 277 K/MM3 (134-434) 07/24/19 05:30 MPV 9.4 fl (7.5-11.1) D 07/24/19 05:30 CMP Sodium 142 mmol/L (136-145) 07/24/19 05:30 Potassium 3.9 mmol/L (3.5-5.1) 07/24/19 05:30 Chloride 113 mmol/L (98-107) H 07/24/19 05:30 Carbon Dioxide 23 mmol/L (21-32) 07/24/19 05:30 Anion Gap 6 MMOL/L (8-16) L 07/24/19 05:30 BUN 8.6 mg/dL (7-18) 07/24/19 05:30 Creatinine 0.5 mg/dL (0.55-1.3) L 07/24/19 05:30 Random Glucose 99 mg/dL (74-106) 07/24/19 05:30 Calcium 8.0 mg/dL (8.5-10.1) L 07/24/19 05:30 Total Bilirubin 0.6 mg/dL (0.2-1) 07/21/19 08:45 AST 11 U/L (15-37) L 07/21/19 08:45 ALT 12 U/L (13-61) L 07/21/19 08:45 Alkaline Phosphatase 42 U/L (45-117) L 07/21/19 08:45 Total Protein 6.0 g/dl (6.4-8.2) L 07/21/19 08:45 Albumin 3.3 g/dl (3.4-5.0) L 07/21/19 08:45 CARDIAC ENZYMES Creatine Kinase 43 U/L (26-192) 07/21/19 08:45 Troponin I < 0.02 ng/ml (0.00-0.05) 07/21/19 08:45 Current Medications Generic Name Dose Route Start Last Admin Trade Name Freq PRN Reason Stop Dose Admin Acetaminophen/Butalbital/Caffeine 1 tablet 07/23/19 21:07 07/24/19 03:42 Fioricet - PO 1 tablet Q6H PRN Administration HEADACHE Cyclobenzaprine HCl 2.5 mg 07/24/19 10:00 Cyclobenzaprine Hcl PO DAILY [facility] Divalproex Sodium 500 mg 07/23/19 22:00 07/23/19 22:37 Depakote *Er* - PO 500 mg HS MARLEE Administration Docusate Sodium 100 mg 07/23/19 22:00 07/23/19 22:29 Colace - PO 100 mg BID MARLEE Administration Ferrous Sulfate 325 mg 07/24/19 10:00 Feosol - PO DAILY MARLEE Heparin Sodium (Porcine) 5,000 unit 07/23/19 22:00 07/24/19 06:40 Heparin - SQ 5,000 unit TID MARLEE Administration Sodium Chloride 1,000 mls @ 100 mls/hr 07/23/19 21:07 07/24/19 03:43 Normal Saline - IV 100 mls/hr ASDIR MARLEE Administration Ondansetron HCl 4 mg 07/23/19 21:07 07/23/19 22:29 Zofran Injection IVPUSH 4 mg Q8H PRN Administration NAUSEA Pramipexole Dihydrochloride 0.125 mg 07/23/19 22:00 07/23/19 22:37 Mirapex - PO 0.125 mg BID MARLEE Administration Senna 1 tab 07/24/19 10:00 Senna - PO BID [facility] Home Medications Medication Instructions Recorded Docusate Sodium [Colace] 100 mg PO DAILY 30 Days #30 capsule 07/23/19 Ferrous Sulfate 325 mg PO TID 30 Days #90 tablet 07/23/19 ASSESSMENT AND PLAN: Patient is a 48yo female with PMHx of iron def anemia due to heavy menstrual period, who presented with L sided weakness, numbness , and pain in addition to reproducable CP. # Acute iron deficiency anemia over chronic: s/p 3 iron infusion by her PCP last month, getting her 2nd IV infusion today. will discharge the patient on Chromagen daily , follow up with her obgyn as an outpatient since she gets heavy bleeding. Patient was offered BCP by OBGYN dr Perez but stated that she wants to become and does not want BCPs. # Septated cyst : and TV US ( thick endometrium) with septated cyst , seen by , OBGYn and repeat US in 3 months and follow up with her OBGYN dr. Kraft as an oitpatien ,patient has an appointment with her JUNIOR ACCOUNTING CLERK ( on 08/17) # Acute constipation: will place the patient on colace 200mg hs, miralax, glycerin sup. # L sided pain and numbness on improved # atypical CP:unlikely ACS ; EKG and trop reviewed, trop neg x 2, EKG no ischemic changes, atypical symptoms echo unremarkable # Migraine headache : as per neuro patient started on Fioricet, and depakote neuro on board DVT PX : heparin sq dc dc patient home.
[2019-07-24] MEDS ORDERED: CYCLOBENZAPRINE HCL 5 MG TABLET PO SCH ×2 (10:00)
[2019-07-24] MEDS ORDERED: PT OWN MED DRAWER 7, Y5N ONE ×2 (10:12→23:19)
[2019-07-24] MEDS: FERROUS SO4 325 MG TABLET (FP) PO SCH ×2 (10:15→10:19)
[2019-07-24] MEDS: SENNOSIDES 8.6MG TABLET (FP) PO SCH ×2 (10:15→23:44)
[2019-07-24] MEDS: PRAMIPEXOLE DIHYDROCHLORIDE 0.125 MG TABLET PO SCH (10:16)
[2019-07-24] MEDS: DOCUSATE SODIUM 100 MG CAPSULE (FP) PO SCH ×2 (10:16→23:44)
[2019-07-24] MEDS ORDERED: IRON SUCROSE INJECTION 200 MG in SODIUM CHLORIDE 90 ML IVPB ONE (10:18)
[2019-07-24] MEDS: ONDANSETRON 4 MG/2 ML VIAL IVPUSH PRN ×2 (11:19→20:29)
--- NOTE | 2019-07-24 15:18 | DS ---
Physical Exam: SUBJECTIVE: Patient seen and examined OBJECTIVE: Vital Signs Period Temp Pulse Resp BP Sys/Rogers Pulse Ox Last 24 Hr 97.7 F-98.4 F 66-79 16-161 98-132/47-75 98 PHYSICAL EXAM GENERAL: The patient is awake, alert, and fully oriented, in no acute distress. HEAD: Normal with no signs of trauma. EYES: PERRL, extraocular movements intact, sclera anicteric, conjunctiva clear. ENT: Ears normal, nares patent, oropharynx clear without exudates, moist mucous membranes. NECK: Trachea midline, full range of motion, supple. LUNGS: Breath sounds equal, clear to auscultation bilaterally, no wheezes, no crackles, no accessory muscle use. HEART: Regular rate and rhythm, S1, S2 without murmur, rub or gallop. ABDOMEN: Soft, nontender, nondistended, normoactive bowel sounds, no guarding, no rebound, no hepatosplenomegaly, no masses. EXTREMITIES: 2+ pulses, warm, well-perfused, no edema. NEUROLOGICAL: Cranial nerves II through XII grossly intact. Normal speech, gait not observed. PSYCH: Normal mood, normal affect. SKIN: Warm, dry, normal turgor, no rashes or lesions noted. LABS Laboratory Results - last 24 hr 07/24/19 07/24/19 05:30 05:30 WBC 7.8 RBC 3.15 L Hgb 7.6 L Hct 24.7 L MCV 78.4 L MCH 24.2 L MCHC 30.9 L RDW 17.7 H Plt Count 277 MPV 9.4 D Sodium 142 Potassium 3.9 Chloride 113 H Carbon Dioxide 23 Anion Gap 6 L BUN 8.6 Creatinine 0.5 L Est GFR (CKD-EPI)AfAm 131.72 Est GFR (CKD-EPI)NonAf 113.65 Random Glucose 99 Calcium 8.0 L LD Total 116 Vitamin B12 628 Serum Folate 10 HOSPITAL COURSE: Date of Admission:07/21/19 Date of Discharge: 07/24/19 Discharge Summary Reason For Visit: PARESTHESIA OF LEFT UPPER AND LOWER EXTREMITY Condition: Stable - Instructions Diet, Activity, Other Instructions: You were in the hospital because you were having symptoms of changes of vision in your Left eye, pain in your left arm, and leg, pain in the left side of your chest, and pain in your abdomen. While you were in the hospital you saw a neurologist and an ENT. You had a CT scan of your head which was unremarkable. You had blood work which showed you were anemic. The most likely cause of your symptoms is migrane. Your symtoms may also be associated with your anemia. In the hospital you got iron infusions and medicine for migrains. Please continue to take all of your home medicines as prescribed with the following changes: ADD: Chromagen once a day for iron deficiency ADD: Depakote 500mg at night for headaches Please follow up with the following doctors within 1 week of discharge from the hospital: Dr. Guerrero, the neurologist, to evaluate for migraine Dr. Reyes, the ENT, for outpatient audiometric evaluation Dr. Prado, your primary care provider ABDIRASHID Gomez. after your next menstrual period please have a repeat sonogram of your ovaries as you were found to have an ovarian cyst in [address] Leon for IV Iron infusions once a week If you have any symptoms of chest pain, shortness of breath, dizziness, sudden change or loss of vision, or sudden change or loss of hearing, please return to the Emergency Department immediately. Referrals: Adal Guerrero MD [Staff Physician] - 1 Week Jose Miguel Prado PA [Primary Care Provider] - 1 Week Chloe Duarte MD [Staff Physician] - 1 Week Nikhil Leon MD [Staff Physician] - 1 Week Tin Gonzalez MD [Staff Physician] - 1 Week Disposition: HOME - Home Medications Comprehensive Discharge Medication List: Ambulatory Orders Divalproex *ER* [Depakote *ER* -] 500 mg PO HS #30 tablet.sa 07/24/19 Iron/C/Folate 6/B12/Zn/Stomach [Chromagen Softgel] 1 each PO DAILY 1 Days #30 capsule 07/24/19 - Discharge Referral Referred to [facility] Med P.C[facility] No ATTENDING PHYSICIAN STATEMENT I saw and evaluated the patient. I reviewed the resident's note and discussed the case with the resident. I agree with the resident's findings and plan as documented. SUBJECTIVE: OBJECTIVE: ASSESSMENT AND PLAN:
--- NOTE | 2019-07-24 15:28 | PN ---
Progress Note (short form) - Note Progress Note: s: no palps, dyspnea, cp, sob Current Medications Generic Name Dose Route Start Last Admin Trade Name Freq PRN Reason Stop Dose Admin Acetaminophen/Butalbital/Caffeine 1 tablet 07/23/19 21:07 07/24/19 10:25 Fioricet - PO 1 tablet Q6H PRN Administration HEADACHE Cyclobenzaprine HCl 2.5 mg 07/24/19 10:00 07/24/19 10:15 Cyclobenzaprine Hcl PO 2.5 mg DAILY MARLEE Administration Divalproex Sodium 500 mg 07/23/19 22:00 07/23/19 22:37 Depakote *Er* - PO 500 mg HS MARLEE Administration Docusate Sodium 100 mg 07/23/19 22:00 07/24/19 10:16 Colace - PO 100 mg BID MARLEE Administration Ferrous Sulfate 325 mg 07/24/19 10:00 07/24/19 10:19 Feosol - PO Not Given DAILY MARLEE Heparin Sodium (Porcine) 5,000 unit 07/23/19 22:00 07/24/19 13:47 Heparin - SQ 5,000 unit TID MARLEE Administration Sodium Chloride 1,000 mls @ 100 mls/hr 07/23/19 21:07 07/24/19 03:43 Normal Saline - IV 100 mls/hr ASDIR MARLEE Administration Ondansetron HCl 4 mg 07/23/19 21:07 07/24/19 11:19 Zofran Injection IVPUSH 4 mg Q8H PRN Administration NAUSEA Pramipexole Dihydrochloride 0.125 mg 07/23/19 22:00 07/24/19 10:16 Mirapex - PO 0.125 mg BID MARLEE Administration Senna 1 tab 07/24/19 10:00 07/24/19 10:15 Senna - PO 1 tab BID MARLEE Administration Vital Signs Period Temp Pulse Resp BP Sys/Rogers Pulse Ox Last 24 Hr 97.7 F-98.4 F 66-79 16-161 98-132/47-75 98 Constitutional: Yes: No Distress, Calm Eyes: Yes: Conjunctiva Clear Neck: Yes: Supple, Trachea Midline Respiratory: Yes: Regular, CTA Bilaterally Gastrointestinal: Yes: Normal Bowel Sounds, Soft Cardiovascular: Yes: Regular Rate and Rhythm JVD: No Heart Sounds: Yes: S1, S2 Edema: No Peripheral Pulses WNL: Yes Integumentary: No: Jaundice Neurological: Yes: Alert, Oriented Psychiatric: No: Agitated CBC, BMP 07/24/19 05:30 07/24/19 05:30 Assessment/Plan EKG: sinus, nl intervals, no ischemic changes echo 07/2019 nl LV/RV function, tr MR, tr TR L chest pain, headache, lower ext pain, facial numbness - trop neg x 2, EKG no ischemic changes, atypical symptoms - unlikely ACS - echo unremarkable - less likely cardiac etiology, undergoing neuro workup, treating for migraine anemia - manage per primary cardiac hernandes stable
--- NOTE | 2019-07-24 16:22 | PN ---
Teaching Attending Note Name of Resident: Grover Neal ATTENDING PHYSICIAN STATEMENT I saw and evaluated the patient. I reviewed the resident's note and discussed the case with the resident. I agree with the resident's findings and plan as documented. SUBJECTIVE: Patient seen and examined Significant menorrhagia. Last period lasted 3 weeks with heavy clots . Complains of numbness left side of face and body. Complains of headache . Takes 6 Motrin or more during menses for multiple days. Last period - took in excess of this for many days. States had upper and lower endoscopy [address] Haskins which was unremarkable. OBJECTIVE: ROS- headache , numbness face and left side of body; pains left flank and LLQ Last Vital Signs Temp Pulse Resp BP Pulse Ox 97.7 F 76 161 H 108/67 98 07/24/19 14:00 07/24/19 14:00 07/24/19 14:00 07/24/19 14:00 07/23/19 21:00 HEENT: LUIZ, EOM Intact Oropharynx: No thrush, No mucositis Neck: Supple Nodes: Without adenopathy Breasts: Without masses Cor: RSR, No murmurs, No gallops Lungs: Clear to P&A Abd: Soft, Normal bowel sounds, No organomegaly Ext:No significant edema Skin: No rashes, Integument intact CBC, BMP 07/24/19 05:30 07/24/19 05:30 Current Medications Generic Name Dose Route Start Last Admin Trade Name Freq PRN Reason Stop Dose Admin Acetaminophen/Butalbital/Caffeine 1 tablet 07/23/19 21:07 07/24/19 10:25 Fioricet - PO 1 tablet Q6H PRN Administration HEADACHE Cyclobenzaprine HCl 2.5 mg 07/24/19 10:00 07/24/19 10:15 Cyclobenzaprine Hcl PO 2.5 mg DAILY MARLEE Administration Divalproex Sodium 500 mg 07/23/19 22:00 07/23/19 22:37 Depakote *Er* - PO 500 mg HS MARLEE Administration Docusate Sodium 100 mg 07/23/19 22:00 07/24/19 10:16 Colace - PO 100 mg BID MARLEE Administration Ferrous Sulfate 325 mg 07/24/19 10:00 07/24/19 10:19 Feosol - PO Not Given DAILY MARLEE Heparin Sodium (Porcine) 5,000 unit 07/23/19 22:00 07/24/19 13:47 Heparin - SQ 5,000 unit TID MARLEE Administration Sodium Chloride 1,000 mls @ 100 mls/hr 07/23/19 21:07 07/24/19 03:43 Normal Saline - IV 100 mls/hr ASDIR MARLEE Administration Ondansetron HCl 4 mg 07/23/19 21:07 07/24/19 11:19 Zofran Injection IVPUSH 4 mg Q8H PRN Administration NAUSEA Pramipexole Dihydrochloride 0.125 mg 07/23/19 22:00 07/24/19 10:16 Mirapex - PO 0.125 mg BID MARLEE Administration Senna 1 tab 07/24/19 10:00 07/24/19 10:15 Senna - PO 1 tab BID MARLEE Administration ASSESSMENT AND PLAN: Impression: Iron deficiency with ferritin 2.6 and ferritin 4. Seems to be related to menorrhagia although patient takes excessive motrin during menses. Complains of LLQ pains, flank pains, and numbness of face and left side of body. Will obtain HbE, celiac screen. Outpatient GI re-assessment.
--- NOTE | 2019-07-24 17:38 | CON.PSY ---
Psychiatry Consult Chief Complaint: I am not Mental, its all Physical, i have pain in my left side. I have never seen a psychiatrist. I live with my daughter. I just called m ,y Insyrance, i dont want to leave here..Patient is well dressed bushra neat anmde dows not present any de[prtessive features, staff report obsessive behaviours. Symptoms: reports: Hyperactivity - Previous Psychiatric Treatment Outpatient: None Inpatient: None - Previous Substance Abuse Treatment Outpatient: None Inpatient: None - Current Medications Current Medications: Active Medications Acetaminophen/Butalbital/Caffeine (Fioricet -) 1 tablet PO Q6H PRN PRN Reason: HEADACHE Last Admin: 07/24/19 10:25 Dose: 1 tablet Cyclobenzaprine HCl (Cyclobenzaprine Hcl) 2.5 mg PO DAILY [facility] Last Admin: 07/24/19 10:15 Dose: 2.5 mg Divalproex Sodium (Depakote *Er* -) 500 mg PO HS [facility] Last Admin: 07/23/19 22:37 Dose: 500 mg Docusate Sodium (Colace -) 100 mg PO BID [facility] Last Admin: 07/24/19 10:16 Dose: 100 mg Ferrous Sulfate (Feosol -) 325 mg PO DAILY [facility] Last Admin: 07/24/19 10:19 Dose: Not Given Heparin Sodium (Porcine) (Heparin -) 5,000 unit SQ TID [facility] Last Admin: 07/24/19 13:47 Dose: 5,000 unit Sodium Chloride (Normal Saline -) 1,000 mls @ 100 mls/hr IV ASDIR [facility] Last Admin: 07/24/19 03:43 Dose: 100 mls/hr Ondansetron HCl (Zofran Injection) 4 mg IVPUSH Q8H PRN PRN Reason: NAUSEA Last Admin: 07/24/19 11:19 Dose: 4 mg Pramipexole Dihydrochloride (Mirapex -) 0.125 mg PO BID [facility] Last Admin: 07/24/19 10:16 Dose: 0.125 mg Senna (Senna -) 1 tab PO BID [facility] Last Admin: 07/24/19 10:15 Dose: 1 tab - Allergies Allergies: Allergies Allergy/AdvReac Type Severity Reaction Status Date / Time No Known Allergies Allergy Verified 07/20/19 18:54 - Current Living Status Usual Living Arrangement: With Child - Current Mental Status Evaluation Appearance: Well Groomed Attitude: Guarded - Affect Affect: Full Range Appropriateness: Appropriate to Content - Mood Mood: Irritable - Speech/Language Expressive: Coherent - Psychomotor Activity Psychomotor Activity: Normal - Thought Process Thought Process: Intact - Thought Content Hallucinations: Absent Delusions: Absent - Self Perception Self Perception: No Impairment - Cognition Attention: Alert Orientation: Time Memory, Immediate Recall: Intact Memory, Short Term: 3/3 Memory, Remote with Promptin/3 - Concentration Serial Sevens Intact: Yes Simple Calculations Intact: Yes - Abstraction Proverb Interpretation: Intact Judgement: Minimally Impaired - Insight Insight: Intact - Impulse Control Impulse Control: Good Control - Suicidal Ideation Suicidal Ideation: No - Homicidal Ideation Homicidal Ideation: No Assessment/Plan 1) No Psych meds. 2) Patient has the Mental capacity to make decisions at this time.
[2019-07-24] MEDS ORDERED: SUMAtriptan SUCCINATE 50 MG TABLET PO PRN (18:51)
[2019-07-24] MEDS ORDERED: PRAMIPEXOLE DIHYDROCHLORIDE 0.25 MG TABLET PO SCH (22:00)
[2019-07-24] MEDS: SUMAtriptan SUCCINATE 50 MG TABLET PO PRN (23:41)
[2019-07-24] MEDS: DIVALPROEX NA *ER* EXTEND REL 500 MG TABLET.SA (FP) PO SCH (23:44)
[2019-07-25] MEDS: HEPARIN NA (PORCINE) 5,000 UNITS/ML 1ML VIAL SQ SCH ×2 (06:04→14:00)
[2019-07-25] MEDS: FERROUS SO4 325 MG TABLET (FP) PO SCH ×2 (10:44→22:19)
[2019-07-25] MEDS: SENNOSIDES 8.6MG TABLET (FP) PO SCH (10:45)
[2019-07-25] MEDS: DOCUSATE SODIUM 100 MG CAPSULE (FP) PO SCH ×2 (10:45→22:18)
[2019-07-25] MEDS: SUMAtriptan SUCCINATE 50 MG TABLET PO PRN (16:52)
[2019-07-25] MEDS: ONDANSETRON 4 MG/2 ML VIAL IVPUSH PRN (17:35)
[2019-07-25] MEDS ORDERED: GLYCERIN 1 RECTAL SUPPOSITORY, ADULT RC PRN (18:29)
--- NOTE | 2019-07-25 18:41 | PN ---
Progress Note (short form) - Note Progress Note: Patient continues to c/o feeling weak, lying in bed with no acute distress. Vital Signs Temperature 98.7 F 07/25/19 14:00 Pulse Rate 81 07/25/19 14:00 Respiratory Rate 18 07/25/19 14:00 Blood Pressure 108/63 07/25/19 14:00 O2 Sat by Pulse Oximetry (%) 98 07/24/19 09:00 GENERAL: The patient is awake, alert, and fully oriented, in no acute distress. HEAD: Normal with no signs of trauma. EYES: PERRL, extraocular movements intact, sclera anicteric, conjunctiva clear. ENT: Ears normal,patent, oropharynx clear without exudates, moist mucous membranes.positive for braces NECK: Trachea midline, full range of motion, supple. LUNGS: Breath sounds equal, clear to auscultation bilaterally, no wheezes, no crackles, no accessory muscle use. HEART: Regular rate and rhythm, S1, S2 without murmur, rub or gallop. ABDOMEN: Soft, NT,ND, normoactive bowel sounds, no guarding, no rebound, no hepatosplenomegaly, no masses. EXTREMITIES: 2+ pulses, warm, well-perfused, no edema. NEUROLOGICAL: Cranial nerves II through XII grossly intact. Normal speech. PSYCH: Normal mood, normal affect. SKIN: Warm, dry, normal turgor, no rashes or lesions noted CBCD WBC 7.8 K/mm3 (4.0-10.0) 07/24/19 05:30 RBC 3.15 M/mm3 (3.60-5.2) L 07/24/19 05:30 Hgb 7.6 GM/dL (10.7-15.3) L 07/24/19 05:30 Hct 24.7 % (32.4-45.2) L 07/24/19 05:30 MCV 78.4 fl (80-96) L 07/24/19 05:30 MCHC 30.9 g/dl (32.0-36.0) L 07/24/19 05:30 RDW 17.7 % (11.6-15.6) H 07/24/19 05:30 Plt Count 277 K/MM3 (134-434) 07/24/19 05:30 MPV 9.4 fl (7.5-11.1) D 07/24/19 05:30 CMP Sodium 142 mmol/L (136-145) 07/24/19 05:30 Potassium 3.9 mmol/L (3.5-5.1) 07/24/19 05:30 Chloride 113 mmol/L (98-107) H 07/24/19 05:30 Carbon Dioxide 23 mmol/L (21-32) 07/24/19 05:30 Anion Gap 6 MMOL/L (8-16) L 07/24/19 05:30 BUN 8.6 mg/dL (7-18) 07/24/19 05:30 Creatinine 0.5 mg/dL (0.55-1.3) L 07/24/19 05:30 Random Glucose 99 mg/dL (74-106) 07/24/19 05:30 Calcium 8.0 mg/dL (8.5-10.1) L 07/24/19 05:30 Total Bilirubin 0.6 mg/dL (0.2-1) 07/21/19 08:45 AST 11 U/L (15-37) L 07/21/19 08:45 ALT 12 U/L (13-61) L 07/21/19 08:45 Alkaline Phosphatase 42 U/L (45-117) L 07/21/19 08:45 Total Protein 6.0 g/dl (6.4-8.2) L 07/21/19 08:45 Albumin 3.3 g/dl (3.4-5.0) L 07/21/19 08:45 CARDIAC ENZYMES Creatine Kinase 43 U/L (26-192) 07/21/19 08:45 Troponin I < 0.02 ng/ml (0.00-0.05) 07/21/19 08:45 Current Medications Generic Name Dose Route Start Last Admin Trade Name Freq PRN Reason Stop Dose Admin Divalproex Sodium 500 mg 07/23/19 22:00 07/24/19 23:44 Depakote *Er* - PO 500 mg HS MARLEE Administration Docusate Sodium 100 mg 07/23/19 22:00 07/25/19 10:45 Colace - PO 100 mg BID MARLEE Administration Ferrous Sulfate 325 mg 07/25/19 22:00 Feosol - PO BID MARLEE Glycerin 2 each 07/25/19 18:29 Glycerin Suppository Adult - OR DAILY PRN CONSTIPATION Heparin Sodium (Porcine) 5,000 unit 07/23/19 22:00 07/25/19 14:00 Heparin - SQ 5,000 unit TID MARLEE Administration Sodium Chloride 1,000 mls @ 100 mls/hr 07/23/19 21:07 07/24/19 23:45 Normal Saline - IV 100 mls/hr ASDIR MARLEE Administration Ondansetron HCl 4 mg 07/23/19 21:07 07/25/19 17:35 Zofran Injection IVPUSH 4 mg Q8H PRN Administration NAUSEA Polyethylene Glycol 17 gm 07/25/19 22:00 Miralax (For Daily Use) - PO 07/26/19 22:01 BID MARLEE Sumatriptan Succinate 100 mg 07/24/19 23:09 07/25/19 16:52 Imitrex - PO 100 mg BID PRN Administration MIGRAINE Home Medications Medication Instructions Recorded Divalproex *ER* [Depakote *ER* -] 500 mg PO HS #30 tablet.sa 07/24/19 Iron/C/Folate 6/B12/Zn/Stomach 1 each PO DAILY 1 Days #30 capsule 07/24/19 [Chromagen Softgel] ASSESSMENT AND PLAN: Patient is a 48yo female with PMHx of iron def anemia due to heavy menstrual period, who presented with L sided weakness, numbness , and pain in addition to reproducable CP. # Acute constipation: continue colace 200mg hs, miralax added and glycerin sup. added, patient was suggested to walk and not just lie in bed. dc's dulcolax since can cause nausea. # Acute iron deficiency anemia over chronic: s/p 3 iron infusion by her PCP last month, another 2 infusions while in the hospital but stated that she wants to become and does not want BCPs. patient will need Iron infusion every 3 days. or weekly as an outpatient. # Septated cyst : and TV US ( thick endometrium) with septated cyst , seen by , OBGYn and repeat US in 3 months and follow up with her OBGYN dr. 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 Visit type - Emergency Visit Emergency Visit: Yes ED Registration Date: 07/21/19 Care time: The patient presented to the Emergency Department on the above date and was hospitalized for further evaluation of their emergent condition. - New Patient This patient is new to me today: No - Critical Care Critical Care patient: No - Discharge Referral Referred to [facility] No
[2019-07-25] MEDS ORDERED: PT OWN MED DRAWER 7, Y5N ONE (21:55)
[2019-07-25] MEDS: DIVALPROEX NA *ER* EXTEND REL 500 MG TABLET.SA (FP) PO SCH (22:18)
[2019-07-25] MEDS: SODIUM CHLORIDE 1,000 ML IV SCH (22:18)
[2019-07-25] MEDS: POLYETHYLENE GLYCOL 3350 119 GM BTL PO SCH (22:19)
[2019-07-26] MEDS ORDERED: MELATONIN 5 MG TABLETS PO ONE ×2 (01:04→21:58)
[2019-07-26] MEDS ORDERED: PT OWN MED DRAWER 7, Y5N ONE ×2 (02:13→21:00)
[2019-07-26] MEDS: SUMAtriptan SUCCINATE 50 MG TABLET PO PRN ×2 (02:13→21:42)
[2019-07-26 07:29] LABS: BASO % 0.4 % (0-2.0); EOS % 3.9 % (0-4.5); HEMATOCRIT 27.4 % (32.4-45.2); HEMOGLOBIN 8.6 GM/dL (10.7-15.3); LYMPH % 26.1 % (8-40); MCH 24.8 pg (25.7-33.7); MCHC 31.2 g/dl (32.0-36.0); MEAN CELL VOLUME 79.3 fl (80-96); MEAN PLT VOLUME 9.1 fl (7.5-11.1); MONO % 7.9 % (3.8-10.2); NEUT % 61.7 % (42.8-82.8); PLATELET COUNT 247 K/MM3 (134-434); RBC 3.46 M/mm3 (3.60-5.2); RDW 19.2 % (11.6-15.6)
[2019-07-26] MEDS: DOCUSATE SODIUM 100 MG CAPSULE (FP) PO SCH ×2 (11:02→21:42)
[2019-07-26] MEDS: FERROUS SO4 325 MG TABLET (FP) PO SCH ×2 (11:02→21:44)
[2019-07-26] MEDS ORDERED: ONDANSETRON 4 MG TABLET PO PRN (12:56)
[2019-07-26] MEDS: POLYETHYLENE GLYCOL 3350 119 GM BTL PO SCH ×2 (13:32→21:44)
--- NOTE | 2019-07-26 19:08 | DS ---
Physical Exam: SUBJECTIVE: Patient seen and examined at the bedside, there were no acute events overnight. Patient complaining of constipation and pain on L side of body. OBJECTIVE: Vital Signs Period Temp Pulse Resp BP Sys/Rogers Pulse Ox Last 24 Hr 97.9 F-98.7 F 72-86 18-20 97-119/60-83 PHYSICAL EXAM GENERAL: The patient is awake, alert, and fully oriented, in no acute distress. HEAD: Normal with no signs of trauma. EYES: PERRL, extraocular movements intact, sclera anicteric, conjunctiva clear. No ptosis. No nystagmus. ENT: Ears normal, nares patent, oropharynx clear without exudates, moist mucous membranes. NECK: Trachea midline, full range of motion, supple. LUNGS: Breath sounds equal, clear to auscultation bilaterally, no wheezes, no crackles, no accessory muscle use. HEART: Regular rate and rhythm, S1, S2 without murmur, rub or gallop. ABDOMEN: Soft, nontender, nondistended, normoactive bowel sounds, no guarding EXTREMITIES: 2+ pulses, warm, well-perfused, no edema. NEUROLOGICAL: Cranial nerves II through XII grossly intact. Normal speech, gait not observed. Patient endorses decreased sensation on the L face compared to R. RUE/ LLE are 5/5 strength, LUE/LLE are 4/5 strength, however on my exam the the neurologic findins were inconsistent and with effort sometimes patient was able to achieve 5/5 strength, however patient appeared to struggle and become tired. There was no nasolabial fold flattening or asymmetry in the patient's face. Patellar, Biceps and Triceps reflexes were 1+ bilaterally. PSYCH: Normal mood, normal affect. SKIN: Warm, dry, normal turgor, no rashes or lesions noted LABS Laboratory Results - last 24 hr 07/26/19 05:47 WBC 7.0 RBC 3.46 L Hgb 8.6 L Hct 27.4 L MCV 79.3 L MCH 24.8 L MCHC 31.2 L RDW 19.2 H Plt Count 247 MPV 9.1 Absolute Neuts (auto) 4.3 Neutrophils % 61.7 Lymphocytes % 26.1 Monocytes % 7.9 Eosinophils % 3.9 Basophils % 0.4 Nucleated RBC % 0 HOSPITAL COURSE: Date of Admission:07/21/19 48 YO F with PMH of anemia (2/2 heavy menses). Presented to the ER with complaints of facial asymmetry with left sided numbness and tingling as well as weakness in the left side of the face, left arm, and left leg for the past 4 days, associated with slurred speech, intermittent blurry vision, left sided chest pain, diffuse headaches, lower back pain, and left hip pain. Admitted for suspected TIA. Neuro exam was not reproducible with consistency, unclear if etiology is neurologic vs. mechanically limited due to pain. Per neurology the ddx includes complicated migraines vs. labrithitis vs. restless leg syndrome. Patient had atypical CP at presentation and workup for this was unremarkable ( EKG and trop reviewed, trop neg x 2, EKG no ischemic changes, atypical symptoms echo unremarkable). Workup included CT of the temporal bones with IV contrast, which was unremarkable. Carotid U/S, and echo were also unremarkable and the patient's orthostatic vital signs were negative. Fe deficient anemia seems to be 2/2 menorrhagia and patient was given 2 infusions of venofer and instructed to confinue IV infusions weekly as an outpatient. She was also prescribed Chromagen once a day for iron deficiency. Lab studies included B12 which was nl (656) and lyme titers which were negative. Neurology felt a component of her symptoms were 2/2 to migrains and the patient was started on Fioricet, and depakote. As part of her anemia workup the patient received a TVUS which revealed a septated cyst and thick endometrium, OBGYN recommended repeat US in 3 months and follow up with her OBGYN Dr. Kraft as an outpatient. Patient has an appointment with her PAPER INSERTER ( on 08/17). Patient was discharged from the hospital, but remained in her room because she stated she wanted to leave on Saturday. Date of Discharge: 07/26/19 Minutes to complete discharge: 40 Discharge Summary Reason For Visit: PARESTHESIA OF LEFT UPPER AND LOWER EXTREMITY Condition: Stable - Instructions Diet, Activity, Other Instructions: You were in the hospital because you were having symptoms of changes of vision in your Left eye, pain in your left arm, and leg, pain in the left side of your chest, and pain in your abdomen. While you were in the hospital you saw a neurologist and an ENT. You had a CT scan of your head which was unremarkable. You had blood work which showed you were anemic. The most likely cause of your symptoms is migrane. Your symtoms may also be associated with your anemia. In the hospital you got iron infusions and medicine for migrains. Please continue to take all of your home medicines as prescribed with the following changes: ADD: Chromagen once a day for iron deficiency ADD: Depakote 500mg at night for headaches Please follow up with the following doctors within 1 week of discharge from the hospital: Dr. Guerrero, the neurologist, to evaluate for migraine Dr. Reyes, the ENT, for outpatient audiometric evaluation Dr. Prado, your primary care provider [facility]. after your next menstrual period please have a repeat sonogram of your ovaries as you were found to have an ovarian cyst in [address] Leon for IV Iron infusions once a week If you have any symptoms of chest pain, shortness of breath, dizziness, sudden change or loss of vision, or sudden change or loss of hearing, please return to the Emergency Department immediately. Referrals: Adal Guerrero MD [Staff Physician] - 1 Week Jose Miguel Prado PA [Primary Care Provider] - 1 Week Chloe Duarte MD [Staff Physician] - 1 Week Nikhil Leon MD [Staff Physician] - 1 Week Tin Gonzalez MD [Staff Physician] - 1 Week Disposition: HOME - Home Medications Comprehensive Discharge Medication List: Ambulatory Orders Divalproex *ER* [Depakote *ER* -] 500 mg PO HS #30 tablet.sa 07/24/19 Iron/C/Folate 6/B12/Zn/Stomach [Chromagen Softgel] 1 each PO DAILY 1 Days #30 capsule 07/24/19 This patient is new to me today: No Emergency Visit: Yes ED Registration Date: 07/21/19 Care time: The patient presented to the Emergency Department on the above date and was hospitalized for further evaluation of their emergent condition. Critical Care patient: No - Discharge Referral Referred to [facility] No ATTENDING PHYSICIAN STATEMENT I saw and evaluated the patient. I reviewed the resident's note and discussed the case with the resident. I agree with the resident's findings and plan as documented. SUBJECTIVE: OBJECTIVE: ASSESSMENT AND PLAN:
--- NOTE | 2019-07-26 21:02 | PN ---
Teaching Attending Note Name of Resident: Alison Campo ATTENDING PHYSICIAN STATEMENT I saw and evaluated the patient. I reviewed the resident's note and discussed the case with the resident. I agree with the resident's findings and plan as documented. SUBJECTIVE: Patient is eating and feeling better. OBJECTIVE: Vital Signs Temperature 98.6 F 07/26/19 18:00 Pulse Rate 70 07/26/19 18:00 Respiratory Rate 18 07/26/19 18:00 Blood Pressure 98/54 L 07/26/19 18:00 O2 Sat by Pulse Oximetry (%) 98 07/24/19 09:00 GENERAL: The patient is awake, alert, and fully oriented, in no acute distress. HEAD: Normal with no signs of trauma. EYES: PERRL, extraocular movements intact, sclera anicteric, conjunctiva clear. ENT: Ears normal,patent, oropharynx clear without exudates, moist mucous membranes.positive for braces NECK: Trachea midline, full range of motion, supple. LUNGS: Breath sounds equal, clear to auscultation bilaterally, no wheezes, no crackles, no accessory muscle use. HEART: Regular rate and rhythm, S1, S2 without murmur, rub or gallop. ABDOMEN: Soft, NT,ND, normoactive bowel sounds, no guarding, no rebound, no hepatosplenomegaly, no masses. EXTREMITIES: 2+ pulses, warm, well-perfused, no edema. NEUROLOGICAL: Cranial nerves II through XII grossly intact. Normal speech. PSYCH: Normal mood, normal affect. SKIN: Warm, dry, normal turgor, no rashes or lesions noted CBCD WBC 7.0 K/mm3 (4.0-10.0) 07/26/19 05:47 RBC 3.46 M/mm3 (3.60-5.2) L 07/26/19 05:47 Hgb 8.6 GM/dL (10.7-15.3) L 07/26/19 05:47 Hct 27.4 % (32.4-45.2) L 07/26/19 05:47 MCV 79.3 fl (80-96) L 07/26/19 05:47 MCHC 31.2 g/dl (32.0-36.0) L 07/26/19 05:47 RDW 19.2 % (11.6-15.6) H 07/26/19 05:47 Plt Count 247 K/MM3 (134-434) 07/26/19 05:47 MPV 9.1 fl (7.5-11.1) 07/26/19 05:47 CMP Sodium 142 mmol/L (136-145) 07/24/19 05:30 Potassium 3.9 mmol/L (3.5-5.1) 07/24/19 05:30 Chloride 113 mmol/L (98-107) H 07/24/19 05:30 Carbon Dioxide 23 mmol/L (21-32) 07/24/19 05:30 Anion Gap 6 MMOL/L (8-16) L 07/24/19 05:30 BUN 8.6 mg/dL (7-18) 07/24/19 05:30 Creatinine 0.5 mg/dL (0.55-1.3) L 07/24/19 05:30 Random Glucose 99 mg/dL (74-106) 07/24/19 05:30 Calcium 8.0 mg/dL (8.5-10.1) L 07/24/19 05:30 Total Bilirubin 0.6 mg/dL (0.2-1) 07/21/19 08:45 AST 11 U/L (15-37) L 07/21/19 08:45 ALT 12 U/L (13-61) L 07/21/19 08:45 Alkaline Phosphatase 42 U/L (45-117) L 07/21/19 08:45 Total Protein 6.0 g/dl (6.4-8.2) L 07/21/19 08:45 Albumin 3.3 g/dl (3.4-5.0) L 07/21/19 08:45 CARDIAC ENZYMES Creatine Kinase 43 U/L (26-192) 07/21/19 08:45 Troponin I < 0.02 ng/ml (0.00-0.05) 07/21/19 08:45 Current Medications Generic Name Dose Route Start Last Admin Trade Name Freq PRN Reason Stop Dose Admin Divalproex Sodium 500 mg 07/23/19 22:00 07/25/19 22:18 Depakote *Er* - PO 500 mg HS MARLEE Administration Docusate Sodium 100 mg 07/23/19 22:00 07/26/19 11:02 Colace - PO 100 mg BID MARLEE Administration Ferrous Sulfate 325 mg 07/25/19 22:00 07/26/19 11:02 Feosol - PO Not Given BID MARLEE Glycerin 2 each 07/25/19 18:29 Glycerin Suppository Adult - RC DAILY PRN CONSTIPATION Ondansetron HCl 8 mg 07/26/19 12:56 Zofran - PO Q8H PRN NAUSEA AND/OR VOMITING Polyethylene Glycol 17 gm 07/25/19 22:00 07/26/19 13:32 Miralax (For Daily Use) - PO 07/26/19 22:01 17 grams BID MARLEE Administration Sumatriptan Succinate 100 mg 07/24/19 23:09 07/26/19 02:13 Imitrex - PO 100 mg BID PRN Administration MIGRAINE Home Medications Medication Instructions Recorded Divalproex *ER* [Depakote *ER* -] 500 mg PO HS #30 tablet.sa 07/24/19 Iron/C/Folate 6/B12/Zn/Stomach 1 each PO DAILY 1 Days #30 capsule 07/24/19 [Chromagen Softgel] ASSESSMENT AND PLAN: Patient is a 48yo female with PMHx of iron def anemia due to heavy menstrual period, who presented with L sided weakness, numbness , and pain in addition to reproducable CP. # Acute constipation: continue colace 200mg hs, miralax added and glycerin sup. added, patient was suggested to walk and not just lie in bed. dc's dulcolax since can cause nausea. # Acute iron deficiency anemia over chronic: s/p 3 iron infusion by her PCP last month, another 2 infusions while in the hospital but stated that she wants to become and does not want BCPs. patient will need Iron infusion every 3 days. or weekly as an outpatient. # Septated cyst : and TV US ( thick endometrium) with septated cyst , seen by , OBGYn and repeat US in 3 months and follow up with her OBGYN dr. 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
[2019-07-26] MEDS: DIVALPROEX NA *ER* EXTEND REL 500 MG TABLET.SA (FP) PO SCH (21:42)
[2019-07-27 07:40] LABS: BASO % 0.8 % (0-2.0); EOS % 4.9 % (0-4.5); HEMATOCRIT 29.5 % (32.4-45.2); HEMOGLOBIN 9.3 GM/dL (10.7-15.3); LYMPH % 22.6 % (8-40); MCH 25.1 pg (25.7-33.7); MCHC 31.5 g/dl (32.0-36.0); MEAN CELL VOLUME 79.5 fl (80-96); MEAN PLT VOLUME 8.6 fl (7.5-11.1); MONO % 8.8 % (3.8-10.2); NEUT % 62.9 % (42.8-82.8); PLATELET COUNT 269 K/MM3 (134-434); RBC 3.72 M/mm3 (3.60-5.2); RDW 19.4 % (11.6-15.6); WHITE BLOOD COUNT 7.8 K/mm3 (4.0-10.0)
[2019-07-27] MEDS: DOCUSATE SODIUM 100 MG CAPSULE (FP) PO SCH (10:01)
[2019-07-27] MEDS: FERROUS SO4 325 MG TABLET (FP) PO SCH (10:01)
[2019-07-27 13:37] VITALS: TEMP 98.2
[2019-07-27 15:39] VITALS: BP 122/67; PULSE 84
[2019-07-27 16:07] LABS: GLIADIN ANTIBODY IGA 9 units (0-19); GLIADIN ANTIBODY IGG 3 units (0-19); TRANSGLUTAMINASE IGG < 2 U/mL (0-5)
--- NOTE | 2019-07-27 18:12 | PN ---
Teaching Attending Note Name of Resident: Alison Campo ATTENDING PHYSICIAN STATEMENT I saw and evaluated the patient. I reviewed the resident's note and discussed the case with the resident. I agree with the resident's findings and plan as documented. SUBJECTIVE: Patient is comfortable , has no new complains. OBJECTIVE: Vital Signs Temperature 98.2 F 07/27/19 14:00 Pulse Rate 84 07/27/19 14:00 Respiratory Rate 18 07/27/19 14:00 Blood Pressure 122/67 07/27/19 14:00 O2 Sat by Pulse Oximetry (%) 98 07/24/19 09:00 WBC 7.8 K/mm3 (4.0-10.0) 07/27/19 07:18 RBC 3.72 M/mm3 (3.60-5.2) 07/27/19 07:18 Hgb 9.3 GM/dL (10.7-15.3) L 07/27/19 07:18 Hct 29.5 % (32.4-45.2) L 07/27/19 07:18 MCV 79.5 fl (80-96) L 07/27/19 07:18 MCHC 31.5 g/dl (32.0-36.0) L 07/27/19 07:18 RDW 19.4 % (11.6-15.6) H 07/27/19 07:18 Plt Count 269 K/MM3 (134-434) 07/27/19 07:18 MPV 8.6 fl (7.5-11.1) 07/27/19 07:18 CMP Sodium 142 mmol/L (136-145) 07/24/19 05:30 Potassium 3.9 mmol/L (3.5-5.1) 07/24/19 05:30 Chloride 113 mmol/L (98-107) H 07/24/19 05:30 Carbon Dioxide 23 mmol/L (21-32) 07/24/19 05:30 Anion Gap 6 MMOL/L (8-16) L 07/24/19 05:30 BUN 8.6 mg/dL (7-18) 07/24/19 05:30 Creatinine 0.5 mg/dL (0.55-1.3) L 07/24/19 05:30 Random Glucose 99 mg/dL (74-106) 07/24/19 05:30 Calcium 8.0 mg/dL (8.5-10.1) L 07/24/19 05:30 Total Bilirubin 0.6 mg/dL (0.2-1) 07/21/19 08:45 AST 11 U/L (15-37) L 07/21/19 08:45 ALT 12 U/L (13-61) L 07/21/19 08:45 Alkaline Phosphatase 42 U/L (45-117) L 07/21/19 08:45 Total Protein 6.0 g/dl (6.4-8.2) L 07/21/19 08:45 Albumin 3.3 g/dl (3.4-5.0) L 07/21/19 08:45 CARDIAC ENZYMES Creatine Kinase 43 U/L (26-192) 07/21/19 08:45 Troponin I < 0.02 ng/ml (0.00-0.05) 07/21/19 08:45 Current Medications Generic Name Dose Route Start Last Admin Trade Name Freq PRN Reason Stop Dose Admin Divalproex Sodium 500 mg 07/23/19 22:00 07/26/19 21:42 Depakote *Er* - PO 500 mg HS MARLEE Administration Docusate Sodium 100 mg 07/23/19 22:00 07/27/19 10:01 Colace - PO 100 mg BID MARLEE Administration Ferrous Sulfate 325 mg 07/25/19 22:00 07/27/19 10:01 Feosol - PO Not Given BID MARLEE Glycerin 2 each 07/25/19 18:29 Glycerin Suppository Adult - RC DAILY PRN CONSTIPATION Sumatriptan Succinate 100 mg 07/24/19 23:09 07/26/19 21:42 Imitrex - PO 100 mg BID PRN Administration MIGRAINE Home Medications Medication Instructions Recorded Divalproex *ER* [Depakote *ER* -] 500 mg PO HS #30 tablet.sa 07/24/19 Iron/C/Folate 6/B12/Zn/Stomach 1 each PO DAILY 1 Days #30 capsule 07/24/19 [Chromagen Softgel] ASSESSMENT AND PLAN: Patient is a 48yo female with PMHx of iron def anemia due to heavy menstrual period, who presented with L sided weakness, numbness , and pain in addition to reproducable CP. # Acute iron deficiency anemia over chronic: s/p 3 iron infusion by her PCP last month, another 2 infusions while in the hospital but stated that she wants to become and does not want BCPs. patient will need Iron infusion every 3 days. or weekly as an outpatient. # Acute constipation: continue colace 200mg hs, miralax added and glycerin sup. added, patient was suggested to walk and not just lie in bed. dc's dulcolax since can cause nausea. # Septated cyst : and TV US ( thick endometrium) with septated cyst , seen by , OBGYn and repeat US in 3 months and follow up with her OBGYN dr. 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
[2019-07-28 18:07] LABS: HGB SOLUBILITY Negative (Negative); Hgb C 0 % (0.0); Hgb F 0 % (0.0-2.0); Hgb S 0 % (0.0)
== END 2019-07-27 18:18 | disposition home or self-care (01) | DRG 47 ==
LOC: JER 18:38 → JERBED 07-21 01:19 → J4S 07-21 16:21 → J8W 07-23 21:03
PROVIDERS: ADMIT Internal Medicine; ATTEND Internal Medicine
DX: G45.9 Transient cerebral ischemic attack, unspecified (principal); R20.2 Paresthesia of skin; R29.810 Facial weakness; D64.9 Anemia, unspecified; R07.89 Other chest pain; D50.9 Iron deficiency anemia, unspecified; H53.149 Visual discomfort, unspecified; K59.09 Other constipation; G81.94 Hemiplegia, unspecified affecting left nondominant side; N92.0 Excessive and frequent menstruation with regular cycle; H81.312 Aural vertigo, left ear; G25.81 Restless legs syndrome; G43.801 Other migraine, not intractable, with status migrainosus; Z72.89 Other problems related to lifestyle
CPT/HCPCS: 36415; 70450-TC; 70481-TC; 76830-TC; 80048; 80053; 80061; 80307; 81003; 82550; 82607; 82728; 82746; 82784; 83010; 83021; 83036; 83516; 83540; 83550; 83615; 83721; 83735; 84100; 84443; 84484; 84703; 85025; 85027; 85044; 85610; 85660; 86618; 93005; 93010; 93306-TC; 93880-TC; 97116-GP; 97162-GP; 99285-25; J0131; J1644; J1756; J7030

== ENCOUNTER 2019-11-10 01:45 | Emergency (ER) | payer OTHER ==
[2019-11-10 02:15] VITALS: BMI 21.5
--- NOTE | 2019-11-10 02:57 | PDOC ---
Attending Attestation - Resident Resident Name: Jody Rothman - ED Attending Attestation I have performed the following: I have examined & evaluated the patient, The case was reviewed & discussed with the resident, I agree w/resident's findings & plan - HPI HPI: 11/10/19 06:15 see resident hpi - Physicial Exam PE: 11/10/19 06:15 agree with resident exam - Medical Decision Making 11/10/19 06:16 49-year-old female with abdominal pain CT scan shows gallbladder disease, patient does have a positive Crespo sign on exam Will hold for official right upper quadrant ultrasound and sign out to dayshift
--- NOTE | 2019-11-10 03:26 | PDOC ---
History of Present Illness - General Chief Complaint: Pain Stated Complaint: ABD PAIN Time Seen by Provider: 11/10/19 02:56 - History of Present Illness Initial Comments: Alise Salmon is a 49yo woman with a PMH of iron-deficiency anemia s/p appendectomy s/p several c-sections who presents with 2 days of left-sided abdominal pain that radiates to the back and groin. She states that the pain is "throbbing." It is present in the upper abdomen, more in the left, as well as the left flank and back. She additionally reports persistent nausea and multiple episodes of vomiting; she states that she last ate yesterday morning and can no longer even keep down water. She has not noticed any blood or green color to her emesis. She also endorses slightly elevated temperature to 100.2 and chills. She has never had similar symptoms in the past. Ms Salmon initially endorsed urinary frequency but subsequently denies any urinary symptoms. She additionally denies any change in bowel habits; she normally has a BM every other day and had a normal BM last night. She continues to have flatus. Ms Salmon states that the abdominal pain has continued to worsen over the past day. She took 400mg ibuprofen yesterday without improvement but has not taken any additional medication. She states that she saw her primary doctor for the back and flank pain, with imaging scheduled for 11/17/19, but has not had the upper abdominal pain in the past. Past History - Past Medical History Allergies/Adverse Reactions: Allergies Allergy/AdvReac Type Severity Reaction Status Date / Time No Known Allergies Allergy Verified 11/10/19 02:14 Home Medications: Ambulatory Orders NK [No Known Home Medication] 11/10/19 Anemia: Yes COPD: No GI Disorders: Yes (gastritis) - Surgical History Appendectomy: Yes - Immunization History Td Vaccination: Yes Immunization Up to Date: Yes - Psycho Social/Smoking Cessation Hx Smoking Status: No Smoking History: Never smoked Years of Tobacco Use: 0 Have you smoked in the past 12 months: No Number of Cigarettes Smoked Daily: 0 Cigars Per Day: 0 Information on smoking cessation initiated: No Hx Alcohol Use: No Drug/Substance Use Hx: No Substance Use Type: None Hx Substance Use Treatment: No Review of Systems - Review of Systems Comments:: General: No fevers, no chills, no weight or appetite change, no malaise HEENT: No changes in vision, no changes in hearing, no congestion, no sore throat CV: No chest pain, no palpitations, no LE edema Pulm: No SOB, no cough, no wheezing GI: + nausea or vomiting, no change in bowel habits, no melena : No frequency, no urgency, no dysuria Musc: + back/L flank pain, no joint swelling, no recent injury Skin: No rash, no lesions, no erythema Endo: No excessive thirst, no heat/cold intolerance Heme: No unusual bruising or bleeding, no swollen glands Neuro: No syncope, no numbness/tingling, no focal weakness Vasc: No claudication Psych: No recent change in mood, no SI or HI *Physical Exam - Vital Signs Last Vital Signs Temp Pulse Resp BP Pulse Ox 98.2 F 103 H 16 113/79 100 11/10/19 02:10 11/10/19 02:10 11/10/19 02:10 11/10/19 02:10 11/10/19 02:10 - Physical Exam General: Comfortable, no acute distress HEENT: PERRL, EOMI, MMM, voice normal, normal neck ROM Cards: RRR, no murmur appreciated Pulm: Comfortable on room air, clear to auscultation bilaterally Abd: Soft, nondistended. Upper abdominal TTP, greatest in epigastrium. : Slight left CVA tenderness Ext: Atraumatic. No LE edema. ROM intact. WWP Skin: Normal color, no rashes or lesions Neuro: A&Ox3, CN grossly intact, normal speech, motor/sensory grossly intact and symmetric Psych: Mood appropriate to situation ED Treatment Course - LABORATORY CBC & Chemistry Diagram: 11/10/19 04:05 11/10/19 04:05 Medical Decision Making - Medical Decision Making 11/10/19 03:12 Alise Salmon is a 49yo woman with a PMH of iron-deficiency anemia s/p appendectomy s/p several c-sections who presents with two days of upper and left -sided abdominal pain, nausea, frequent NBNB vomiting. She reports a history of flank and back pain, but she denies ever having similar upper abdominal pain in the past. - Back/flank pain appears to be chronic, however symptoms could represent pyelo or stone. Ddx also includes gastritis, cholelithiasis/cholecystitis, pancratitis. Less likely obstruction, though she has had several abdominal surgeries, as she reports no constipation or obstipation. Unlikely ischemia as pain is unrelated to eating. - No chest pain, but nausea/vomiting can be angina equivalent in women, will eval for ACS - CBC, CMP, lipase, lactate, UA, UCx, trop, EKG. - Zofran, famotidine, IV acetaminophen - CT abd/pelvis likely 11/10/19 05:20 - Labs reviewed. No concerning abnormalities - UA with 3+ ketones but otherwise negative for UTI - Pt still feeling nauseated but meds completed recently. Taken for CT, will reassess when she returns 11/10/19 06:25 - Pain continues to be severe. Morphine ordered - CT notes gallstone, no acute gallbladder changes appreciated. Will need abd US 11/10/19 07:04 - Pt signed out to Dr Hurd for the remainder of her ED care Discussed with Dr Betzy Rothman PGY2 Discharge - Discharge Information Problems reviewed: Yes Clinical Impression/Diagnosis: Gallstone Qualifiers: Cholecystitis presence: without cholecystitis Biliary obstruction: without biliary obstruction Qualified Code(s): K80.20 - Calculus of gallbladder without cholecystitis without obstruction Condition: Stable - Follow up/Referral Referrals: Jose Miguel Prado PA [Primary Care Provider] - - Patient Discharge Instructions - Post Discharge Activity
[2019-11-10] MEDS ORDERED: FAMOTIDINE 20 MG/50 ML IVPB 20 MG/50 ML MG IVPB ONE ×2 (03:29→03:52)
[2019-11-10] MEDS ORDERED: ONDANSETRON 4 MG/2 ML VIAL IVPUSH ONE ×2 (03:29→09:48)
[2019-11-10] MEDS ORDERED: ACETAMINOPHEN 1000 MG/100 ML VIAL (NON FORMULARY) IVPB ONE (03:29)
[2019-11-10] MEDS ORDERED: SODIUM CHLORIDE 0.9% 500 ML INFUS.BAG IV ONE (03:29)
[2019-11-10] MEDS ORDERED: ONDANSETRON 4 MG/2 ML VIAL ONE ×2 (03:52→10:13)
[2019-11-10] MEDS ORDERED: ACETAMINOPHEN INJECTION 100 ML IVPB ONE (03:52)
[2019-11-10 04:30] LABS: BASO % 0.4 % (0-2.0); EOS % 0.2 % (0-4.5); HEMATOCRIT 38.7 % (32.4-45.2); HEMOGLOBIN 12.6 GM/dL (10.7-15.3); LYMPH % 4.2 % (8-40); MCH 26.8 pg (25.7-33.7); MCHC 32.5 g/dl (32.0-36.0); MEAN CELL VOLUME 82.6 fl (80-96); MEAN PLT VOLUME 9.5 fl (7.5-11.1); MONO % 3.2 % (3.8-10.2); PLATELET COUNT 352 K/MM3 (134-434); RBC 4.69 M/mm3 (3.60-5.2); RDW 21.6 % (11.6-15.6); WHITE BLOOD COUNT 9.8 K/mm3 (4.0-10.0)
[2019-11-10 04:56] LABS: URINE APPEARANCE CLEAR; URINE BILIRUBIN NEGATIVE (NEGATIVE); URINE COLOR YELLOW; URINE GLUCOSE (UA) NEGATIVE (NEGATIVE); URINE KETONE 3+ (NEGATIVE); URINE LEUK ESTERASE NEGATIVE (NEGATIVE); URINE NITRITE NEGATIVE (NEGATIVE); URINE PROTEIN NEGATIVE (NEGATIVE); URINE UROBILINOGEN 0.2 mg/dL (0.2-1.0)
[2019-11-10 04:59] LABS: ALBUMIN 3.8 g/dl (3.4-5.0); ALK PHOS 47 U/L (45-117); ANION GAP 9 MMOL/L (8-16); BILIRUBIN,TOTAL 0.6 mg/dL (0.2-1); BLOOD UREA NITROGEN 14.8 mg/dL (7-18); CALCIUM 8.4 mg/dL (8.5-10.1); CHLORIDE 107 mmol/L (98-107); CO2 23 mmol/L (21-32); CREATININE 0.5 mg/dL (0.55-1.3); GLUCOSE,RANDOM 116 mg/dL (74-106); POTASSIUM 4.4 mmol/L (3.5-5.1); SGOT/AST 25 U/L (15-37); SGPT/ALT 16 U/L (13-61); SODIUM 139 mmol/L (136-145); TOT PROT 7.1 g/dl (6.4-8.2)
[2019-11-10] MEDS ORDERED: morphine CARPU-JECT 2 MG/1 ML DISP.SYRIN IVPUSH ONE (06:24)
[2019-11-10] MEDS ORDERED: MORPHINE SULFATE 2 MG/ML VIAL ONE (06:47)
--- NOTE | 2019-11-10 07:15 | PDOC ---
*Physical Exam - Vital Signs Last Vital Signs Temp Pulse Resp BP Pulse Ox 98.5 F 69 17 118/79 99 11/10/19 06:35 11/10/19 06:35 11/10/19 06:35 11/10/19 06:35 11/10/19 06:35 - Physical Exam 11/10/19 10:27 gen: aaox3, uncomfortable abd: soft, RUQ ttp, epigastric ttp, nonperitonitic ED Treatment Course - LABORATORY CBC & Chemistry Diagram: 11/10/19 04:05 11/10/19 04:05 - ADDITIONAL ORDERS Additional order review: Laboratory Results 11/10/19 11/10/19 11/10/19 04:30 04:05 04:05 Sodium Potassium Chloride Carbon Dioxide Anion Gap BUN Creatinine Est GFR (CKD-EPI)AfAm Est GFR (CKD-EPI)NonAf Random Glucose Lactic Acid Calcium Total Bilirubin AST ALT Alkaline Phosphatase Creatine Kinase Cancelled Troponin I Cancelled Total Protein Albumin Lipase 58 L Urine Color Yellow Urine Appearance Clear Urine pH 5.0 D Ur Specific [place] 1.031 Urine Protein Negative Urine Glucose (UA) Negative Urine Ketones 3+ H Urine Blood Negative Urine Nitrite Negative Urine Bilirubin Negative Urine Urobilinogen 0.2 Ur Leukocyte Esterase Negative 11/10/19 11/10/19 04:05 04:05 Sodium 139 Potassium 4.4 Chloride 107 Carbon Dioxide 23 Anion Gap 9 BUN 14.8 Creatinine 0.5 L Est GFR (CKD-EPI)AfAm 130.79 Est GFR (CKD-EPI)NonAf 112.85 Random Glucose 116 H Lactic Acid 1.3 Calcium 8.4 L Total Bilirubin 0.6 AST 25 ALT 16 Alkaline Phosphatase 47 Creatine Kinase 79 Troponin I < 0.02 Total Protein 7.1 Albumin 3.8 Lipase Urine Color Urine Appearance Urine pH Ur Specific [place] Urine Protein Urine Glucose (UA) Urine Ketones Urine Blood Urine Nitrite Urine Bilirubin Urine Urobilinogen Ur Leukocyte Esterase 11/10/19 04:05 RBC 4.69 MCV 82.6 MCHC 32.5 RDW 21.6 H MPV 9.5 D Neutrophils % 92.0 H D Lymphocytes % 4.2 L D Monocytes % 3.2 L Eosinophils % 0.2 D Basophils % 0.4 - Medications Given in the ED: ED Medications Discontinued Medications Generic Name Dose Route Start Last Admin Trade Name Freq PRN Reason Stop Dose Admin Acetaminophen 1,000 mg 11/10/19 03:29 11/10/19 04:15 Ofirmev Injection - IVPB 11/10/19 03:30 1,000 mg ONCE ONE Administration Famotidine/Sodium Chloride 20 mg in 50 mls @ 100 mls/hr 11/10/19 03:29 05:02 Pepcid 20 Mg Premixed Ivpb - IVPB 11/10/19 03:58 100 mls/hr ONCE ONE Administration Morphine Sulfate 2 mg 11/10/19 06:24 11/10/19 06:55 Morphine Injection - IVPUSH 11/10/19 06:25 2 mg ONCE ONE Administration Ondansetron HCl 4 mg 11/10/19 03:29 11/10/19 04:15 Zofran Injection IVPUSH 11/10/19 03:30 4 mg ONCE ONE Administration Sodium Chloride 1,000 ml 11/10/19 03:29 11/10/19 04:15 Normal Saline - IV 11/10/19 03:30 1,000 ml ONCE ONE Administration Medical Decision Making - Medical Decision Making 11/10/19 07:12 pt signed out pending ultrasound for eval of a gallstone on ultrasound 11/10/19 10:30 pt still with pain RUQ ultrasound shows 2.5cm stone, cholelithiasis 11/10/19 11:16 resident discussed the case with [facility] surgery who accepts pt in transfer for symptomatic bebeto Discharge - Discharge Information Problems reviewed: Yes Clinical Impression/Diagnosis: Symptomatic cholelithiasis, Biliary colic Gallstone Qualifiers: Cholecystitis presence: without cholecystitis Biliary obstruction: without biliary obstruction Qualified Code(s): K80.20 - Calculus of gallbladder without cholecystitis without obstruction Condition: Guarded Disposition: TRANSFER ACUTE CARE/OTHER HOSP - Follow up/Referral Referrals: Jose Miguel Prado PA [Primary Care Provider] - - Patient Discharge Instructions - Post Discharge Activity
[2019-11-10] MEDS ORDERED: morphine CARPU-JECT 4 MG/1 ML DISP.SYRIN IVPUSH ONE (09:48)
[2019-11-10] MEDS ORDERED: SODIUM CHLORIDE 1,000 ML IV STA (09:48)
[2019-11-10] MEDS ORDERED: morphine SULFATE 4 MG/ML VIAL ONE (10:13)
--- NOTE | 2019-11-10 10:20 | PDOC ---
*Physical Exam - Vital Signs Last Vital Signs Temp Pulse Resp BP Pulse Ox 98.5 F 69 17 118/79 99 11/10/19 06:35 11/10/19 06:35 11/10/19 06:35 11/10/19 06:35 11/10/19 06:35 ED Treatment Course - LABORATORY CBC & Chemistry Diagram: 11/10/19 04:05 11/10/19 04:05 - ADDITIONAL ORDERS Additional order review: Laboratory Results 11/10/19 11/10/19 11/10/19 04:30 04:05 04:05 Sodium Potassium Chloride Carbon Dioxide Anion Gap BUN Creatinine Est GFR (CKD-EPI)AfAm Est GFR (CKD-EPI)NonAf Random Glucose Lactic Acid Calcium Total Bilirubin AST ALT Alkaline Phosphatase Creatine Kinase Cancelled Troponin I Cancelled Total Protein Albumin Lipase 58 L Urine Color Yellow Urine Appearance Clear Urine pH 5.0 D Ur Specific [place] 1.031 Urine Protein Negative Urine Glucose (UA) Negative Urine Ketones 3+ H Urine Blood Negative Urine Nitrite Negative Urine Bilirubin Negative Urine Urobilinogen 0.2 Ur Leukocyte Esterase Negative 11/10/19 11/10/19 04:05 04:05 Sodium 139 Potassium 4.4 Chloride 107 Carbon Dioxide 23 Anion Gap 9 BUN 14.8 Creatinine 0.5 L Est GFR (CKD-EPI)AfAm 130.79 Est GFR (CKD-EPI)NonAf 112.85 Random Glucose 116 H Lactic Acid 1.3 Calcium 8.4 L Total Bilirubin 0.6 AST 25 ALT 16 Alkaline Phosphatase 47 Creatine Kinase 79 Troponin I < 0.02 Total Protein 7.1 Albumin 3.8 Lipase Urine Color Urine Appearance Urine pH Ur Specific [place] Urine Protein Urine Glucose (UA) Urine Ketones Urine Blood Urine Nitrite Urine Bilirubin Urine Urobilinogen Ur Leukocyte Esterase 11/10/19 04:05 RBC 4.69 MCV 82.6 MCHC 32.5 RDW 21.6 H MPV 9.5 D Neutrophils % 92.0 H D Lymphocytes % 4.2 L D Monocytes % 3.2 L Eosinophils % 0.2 D Basophils % 0.4 - Medications Given in the ED: ED Medications Discontinued Medications Generic Name Dose Route Start Last Admin Trade Name Freq PRN Reason Stop Dose Admin Acetaminophen 1,000 mg 11/10/19 03:29 11/10/19 04:15 Ofirmev Injection - IVPB 11/10/19 03:30 1,000 mg ONCE ONE Administration Famotidine/Sodium Chloride 20 mg in 50 mls @ 100 mls/hr 11/10/19 03:29 05:02 Pepcid 20 Mg Premixed Ivpb - IVPB 11/10/19 03:58 100 mls/hr ONCE ONE Administration Morphine Sulfate 2 mg 11/10/19 06:24 11/10/19 06:55 Morphine Injection - IVPUSH 11/10/19 06:25 2 mg ONCE ONE Administration Ondansetron HCl 4 mg 11/10/19 03:29 11/10/19 04:15 Zofran Injection IVPUSH 11/10/19 03:30 4 mg ONCE ONE Administration Sodium Chloride 1,000 ml 11/10/19 03:29 11/10/19 04:15 Normal Saline - IV 11/10/19 03:30 1,000 ml ONCE ONE Administration Medical Decision Making - Medical Decision Making Patient signed out by Dr. Rothman Patient still in significant pain TTP in RUQ 4mg morphine 4mg zofran US as ready by radiology: " EXAM#: TYPE/EXAM: RESULT: [id number] US/ABDOMEN US -LIMITED HISTORY PROVIDED: Upper abdominal pain. Real time examination of the abdomen demonstrates the following: The gallbladder is normal in size and does contain a 2.5 cm gallstone. There is no evidence of intra or extrahepatic biliary duct dilatation. The liver is normal in size and texture with no intrahepatic masses seen. Hepatopedal flow is documented within the main portal vein. The pancreas is normal in size and texture with no pancreatic masses identified. There is no evidence of hydronephrosis or acute abnormalities of the right kidney. There is no evidence of AAA. The IVC is patent. IMPRESSION: Cholelithiasis. Reported By: Isiah Brown MD 11/10/19 1012 " Will reassess 11/10/19 10:19 Nurse Aiyana (who is fluent Qatari speaking) and I discussed with patient our recommendation to transfer Patient requested [facility] which we do not transfer to in cases like these, offered [place] and [facility] and patient stated she did not have a preference between the two; Benefits and risks of transfer explained to patient and she voiced understanding; Patient signed the consent form stating she was going to [facility] Discussed case with Dr. Fan, general surgeon at [facility], who accepted patient for ED to ED transfer; Cefoxitin recommended for gram negative coverage Discussed case with Dr. Moreira, ED attending, who accepted patient for ED to ED transfer 11/10/19 11:05 Received call from Hannah at transfer center. Needs our nurse to call the [facility] charge nurse, Transportation to arrive in 45 minutes 11/10/19 11:12 Received cefoxitin from pharmacy just as EMS arrived to transfer patient to [facility] EMS refused to transfer with cefoxitin hanging Updated Dr. Moreira at [facility] 11/10/19 13:15 Discharge - Discharge Information Problems reviewed: Yes Clinical Impression/Diagnosis: Symptomatic cholelithiasis, Biliary colic Gallstone Qualifiers: Cholecystitis presence: without cholecystitis Biliary obstruction: without biliary obstruction Qualified Code(s): K80.20 - Calculus of gallbladder without cholecystitis without obstruction Condition: Guarded Disposition: TRANSFER ACUTE CARE/OTHER HOSP - Follow up/Referral Referrals: Jose Miguel Prado PA [Primary Care Provider] - - Patient Discharge Instructions - Post Discharge Activity - Transfer to Acute Care Facility Receiving Facility Name: [facility]
[2019-11-10 10:28] LABS: ANISOCYTOSIS 1+; MACROCYTOSIS 0; OVALOCYTE 0; PLATELET ESTIMATE NORMAL
--- NOTE | 2019-11-10 10:29 | EKG ---
Test Reason : Blood Pressure : / mmHG Vent. Rate : 089 BPM Atrial Rate : 089 BPM P-R Int : 138 ms QRS Dur : 092 ms QT Int : 384 ms P-R-T Axes : 057 050 051 degrees QTc Int : 467 ms NORMAL SINUS RHYTHM NORMAL ECG WHEN COMPARED WITH ECG OF 22-JUL-2019 08:46, NONSPECIFIC T WAVE ABNORMALITY NOW EVIDENT IN INFERIOR LEADS T WAVE AMPLITUDE HAS DECREASED IN ANTERIOR LEADS Confirmed by MD Leeroy, Herb ([id number]) on 11/10/2019 10:29:19 AM Referred By: Confirmed By:Herb Umaña MD
[2019-11-10] MEDS ORDERED: CEFOXITIN SODIUM 2 GM in DEXTROSE 5%-WATER - 100 ML IVPB ONE (11:16)
[2019-11-10 13:52] VITALS: BP 111/71; PULSE 72; TEMP 98.2
== END 2019-11-10 12:45 | disposition short-term general hospital (02) ==
LOC: JER 01:45
PROC: 3E033NZ Introduction of Analgesics, Hypnotics, Sedatives into Peripheral Vein, Percutaneous Approach (ICD-10-PCS; principal; 2019-11-10)
PROC: 3E033GC Introduction of Other Therapeutic Substance into Peripheral Vein, Percutaneous Approach (ICD-10-PCS; 2019-11-10)
DX: K80.20 Calculus of gallbladder without cholecystitis without obstruction (principal); D64.9 Anemia, unspecified
CPT/HCPCS: 36415; 74176-TC; 76705-TC; 80053; 81003; 82550; 83605; 83690; 84484; 85025; 87086; 93005; 93010; 96365; 96375; 96376; 99285-25; J0131; J7030

== ENCOUNTER 2019-11-10 14:32 | Inpatient (IN) | payer OTHER ==
[2019-11-10 14:51] VITALS: BMI 20.9
[2019-11-10] MEDS ORDERED: CEFOXITIN SODIUM 2 GM in DEXTROSE 5%-WATER - 100 ML IVPB ONE (14:52)
--- NOTE | 2019-11-10 14:52 | PDOC ---
History of Present Illness - General Chief Complaint: Pain Stated Complaint: ABD PAIN Time Seen by Provider: 11/10/19 14:45 - History of Present Illness Initial Comments: HPI: 49yo F with PMH of anemia, appendectomy presenting with RUQ pain and nusea/ vomiting. Known to me from prior encounter earlier today. CT and US showing 2.5cm gallstone without wall thickening or CBD dilation. No fever. No leukocytosis. Had received ofirmev, morphine, and zofran but continued to have emesis and intractable RUQ pain. As a general surgeon was not available at this facility this morning, patient was initially transferred to [facility], however she was unhappy with that facility and returned to [facility] ED. Has continued pain rated 8/10. Has not eaten since yesterday. PCP: Dr. Prado ROS: Constitutional: no fever, no chills HEENT: no throat pain, no dysphagia Cardiovascular: no chest pain, no palpitations Respiratory: no cough, no shortness of breath Gastrointestinal: +abdominal pain, +vomiting Genitourinary: no dysuria, no hematuria Musculoskeletal: no myalgia, no arthralgia Skin: no rash, no itching Neurologic: no headache, no weakness PE: General: Awake, alert, and fully oriented, in no acute distress Head: No signs of trauma Eyes: EOMI, sclera anicteric ENT: Moist mucus membranes Neck: Normal ROM, supple Lungs: Lungs clear, Normal breath sounds Cardio: Regular rhythm, S1 and S2 present Abdomen: Tender to palpation in RUQ. +guarding, no rebound, no masses Extremities: Normal range of motion, Distal pulses present SKIN: Warm, Dry, normal turgor Neurologic: Cranial nerves II through XII grossly intact. Normal speech ED Course/MDM: DDX including but not limited to biliary colic, acute cholecystitis, pancreatitis Patient received labs and imaging within the past ten hours, so we will forego repeat workup for now Patient amenable to surgical consultation and admission 11/10/19 14:[address] Street, general surgeon. Patient can be admitted, however, surgery will likely not occur until . If her pain resolves prior to then, patient may be discharged with outpatient elective procedure. With the assistance of [employer] byproduct engineer #[id number], explained to patient this situation and she voiced understanding. She understands that if her pain resolves, she may be discharged prior to surgery. Amenable to admission. Microblog sent 11/10/19 15:[address] Luke who accepted patient for admission under Dr. Post US as ready by radiology: " EXAM#: TYPE/EXAM: RESULT: [id number] US/ABDOMEN US -LIMITED HISTORY PROVIDED: Upper abdominal pain. Real time examination of the abdomen demonstrates the following: The gallbladder is normal in size and does contain a 2.5 cm gallstone. There is no evidence of intra or extrahepatic biliary duct dilatation. The liver is normal in size and texture with no intrahepatic masses seen. Hepatopedal flow is documented within the main portal vein. The pancreas is normal in size and texture with no pancreatic masses identified. There is no evidence of hydronephrosis or acute abnormalities of the right kidney. There is no evidence of AAA. The IVC is patent. IMPRESSION: Cholelithiasis. Reported By: Isiah Brown MD 11/10/[address] as read by radiology: " EXAM#: TYPE/EXAM: RESULT: [id number] CT/ABDOMEN PELVIS CT W/O CONTR HISTORY PROVIDED: Diffuse abdominal pain TECHNIQUE: Sequential axial images were obtained from the domes of the diaphragm through the symphysis pubis. The study is limited without the use of any contrast material. The lung bases are clear. The liver, spleen, pancreas, adrenal glands and kidneys demonstrate no significant abnormalities. There is a gallstone noted within a nondistended gallbladder. There is no evidence of intra - abdominal or retroperitoneal lymphadenopathy or fluid collections. There is no evidence of pneumoperitoneum, bowel obstruction or intra-abdominal abscess. There is no CT evidence of acute appendicitis or diverticulitis. Examination of the pelvis demonstrates no evidence of pelvic masses, fluid collections or lymphadenopathy. The uterus is retroverted in position. It is bulky in appearance consistent with leiomyomata. There is no evidence of acute bony pathology. IMPRESSION: 1. Cholelithiasis. 2. Fibroid uterus. 3. No evidence of acute pathology within the abdomen or pelvis. Please see above discussion. Reported By: Isiah Brown MD 11/10/19 0837 " Labs with no transaminitis, no leukocytosis, normal ALP, non-elevated lipase 11/11/19 03:10 Past History - Past Medical History Allergies/Adverse Reactions: Allergies Allergy/AdvReac Type Severity Reaction Status Date / Time No Known Allergies Allergy Verified 11/10/19 02:14 Home Medications: Ambulatory Orders NK [No Known Home Medication] 11/10/19 Anemia: Yes COPD: No GI Disorders: Yes (gastritis) - Surgical History Appendectomy: Yes - Immunization History Td Vaccination: Yes Immunization Up to Date: Yes - Psycho Social/Smoking Cessation Hx Smoking Status: No Smoking History: Unknown if ever smoked Years of Tobacco Use: 0 Have you smoked in the past 12 months: No Number of Cigarettes Smoked Daily: 0 Cigars Per Day: 0 Hx Alcohol Use: No Drug/Substance Use Hx: No Substance Use Type: None Hx Substance Use Treatment: No *Physical Exam - Vital Signs Last Vital Signs Temp Pulse Resp BP Pulse Ox 98.7 F 110 H 18 111/78 100 11/10/19 14:35 11/10/19 14:35 11/10/19 14:35 11/10/19 14:35 11/10/19 14:35 Discharge - Discharge Information Problems reviewed: Yes Clinical Impression/Diagnosis: Symptomatic cholelithiasis Condition: Guarded - Admission Yes - Follow up/Referral - Patient Discharge Instructions - Post Discharge Activity
--- NOTE | 2019-11-10 15:18 | PDOC ---
Documentation entered by Robert Fulton SCRIBE, acting as scribe for Slime Gibbs DO. Slime Gibbs DO: This documentation has been prepared by the Kirstin kothari Andrys, SCRIBE, under my direction and personally reviewed by me in its entirety. I confirm that the documentation accurately reflects all work, treatment, procedures, and medical decision making performed by me. Attending Attestation - Resident Resident Name: Agnes Hurd - ED Attending Attestation I have performed the following: I have examined & evaluated the patient, The case was reviewed & discussed with the resident, I agree w/resident's findings & plan, Exceptions are as noted - HPI HPI: 11/10/19 15:11 The patient is a 49 year old female with a past medical history who presents to the ED with right upper quadrant pain. Patient with persistent pain in the right upper quadrant with nausea. No vomiting, diarrhea, fever or chills. - Physicial Exam PE: 11/10/19 15:11 Constitutional: Awake, alert, oriented. No acute distress. Head: Normocephalic. Atraumatic Eyes: PERRL. EOMI. Conjunctivae are not pale. ENT: Mucous membranes are moist and intact. Posterior pharynx without exudates or erythema. Uvula midline. Neck: Supple. Full ROM. No lymphadenopathy. Cardiovascular: + Tachycardia, Regular rhythm. S1, S2 regular. Distal pulses are 2+ and symmetric. Pulmonary/Chest: No evidence of respiratory distress. Clear to auscultation bilaterally No wheezing, rales or rhonchi. Abdominal: + Epigastric and right upper quadrant tenderness. Positive Vancouver sign. Soft and non-distended. No rebound, guarding or rigidity. No organomegaly. No palpable masses. Good bowel sounds. Back: No CVA tenderness. Musculoskeletal: No edema. No cyanosis. No clubbing. Full range of motion in all extremities. Nocalf tenderness. Radial/pedal pulses are intact and 2+ bilaterally Skin: Skin is warm and dry. No petechiae. No purpura. Neurological: Alert and oriented to person, place, and time. Cranial nerves II -XII are grossly intact. Normal speech. Strength is grossly symmetric. No sensory deficits. Psychiatric: Good eye contact. Normal interaction, affect and behavior. - Medical Decision Making 11/10/19 15:13 I, Dr. Slime Gibbs, DO, attest that this document has been prepared under my direction and personally reviewed by me in its entirety. I further attest, that it accurately reflects all work, treatment, procedures and medical decision -making performed by me. a/p: 49yo female returns after declining surgery at [facility] after agreeing to transfer there earlier today for symptomatic cholelithiasis -pt states still in pain -nausea now -has not eaten or drank anything since leaving the hospital -pt denies v/d -no dysuria -no fevers -no cp/sob -states abd pain is /10 -pt with symptomatic bebeto -will call Dr. Street -[facility] 11/10/19 15:19 resident discussed the case with Dr. Street who will see the patient in consult 11/10/19 15:52 resident sent microblog to [facility] for admission 11/10/19 16:18 discussed the case with [facility] who accepts pt to service
[2019-11-10] MEDS ORDERED: CEFEPIME 2 GM/100 ML BAG IVPB ONE (15:21)
[2019-11-10] MEDS ORDERED: ONDANSETRON 4 MG/2 ML VIAL IVPUSH ONE (15:51)
[2019-11-10] MEDS ORDERED: morphine CARPU-JECT 4 MG/1 ML DISP.SYRIN IVPUSH ONE (15:51)
[2019-11-10] MEDS ORDERED: LACTATED RINGERS SOLUTION 1000 ML INFUS.BAG IV ONE (15:51)
[2019-11-10] MEDS ORDERED: FAMOTIDINE 20 MG/50 ML IVPB 20 MG/50 ML MG IVPB ONE ×2 (15:51→16:48)
--- NOTE | 2019-11-10 16:12 | HP ---
CHIEF COMPLAINT: abdominal pain PCP: HISTORY OF PRESENT ILLNESS: Patient is a 49 year old female with history of iron deficiency anemia, gastritis, presents with complaint of abdominal pain. Describes pain as a throbbing pressure originating at epigastrium, and radiating to left upper abdominal quadrant. Symptoms were provoked by eating a [employer] breakfast shortly beforehand. Patient admits symptoms ongoing for past two days, and has not been able to tolerate oral intake. Endorses 7 episodes of billious vomiting , without blood. Admits subjective chills. Patient denies prior occurrence of similar symptoms. Patient was initially transferred to [facility] (as there was no covering General Surgeon), however patient left [facility], and returned to [facility] ED because she was unhappy with that hospital. She currently endorses 8/10 abdominal pain. ER course was notable for: (1) Cefoxitin 2grams IV, Ofirmev, Morphine, Pepcid (2) CT abdomen/ pelvis and abdominal US reveal cholelithiasis (2.5CM) without CBD dilation. (3) Recent Travel: denies PAST MEDICAL HISTORY: iron deficiency anemia, PAST SURGICAL HISTORY: appendectomy 20 years ago, C section, left ovarian cyst Social History: Lives in house with her daughter. She is not employed. Smoking: Denies Alcohol: Endorses two beers on weekend Drugs: Denies Family history: Mother: breast cancer, diabetes mellitus Brother : diabetes mellitus Allergies No Known Allergies Allergy (Verified 11/10/19 02:14) HOME MEDICATIONS: Home Medications Medication Instructions Recorded NK [No Known Home Medication] 11/10/19 REVIEW OF SYSTEMS CONSTITUTIONAL: Absent: fever, chills, diaphoresis, generalized weakness, malaise, loss of appetite, weight change HEENT: Absent: rhinorrhea, nasal congestion, throat pain, throat swelling, difficulty swallowing, mouth swelling, ear pain, eye pain, visual changes CARDIOVASCULAR: Absent: chest pain, syncope, palpitations, irregular heart rate, lightheadedness , peripheral edema RESPIRATORY: Absent: cough, shortness of breath, dyspnea with exertion, orthopnea, wheezing, stridor, hemoptysis GASTROINTESTINAL: Admits: abdominal pain, nausea, vomiting. Absent: abdominal distension, diarrhea , constipation, melena, hematochezia GENITOURINARY: Absent: dysuria, frequency, urgency, hesitancy, hematuria, flank pain, genital pain MUSCULOSKELETAL: Absent: myalgia, arthralgia, joint swelling, back pain, neck pain SKIN: Absent: rash, itching, pallor HEMATOLOGIC/IMMUNOLOGIC: Absent: easy bleeding, easy bruising, lymphadenopathy, frequent infections ENDOCRINE: Absent: unexplained weight gain, unexplained weight loss, heat intolerance, cold intolerance NEUROLOGIC: Absent: headache, focal weakness or paresthesias, dizziness, unsteady gait, seizure, mental status changes, bladder or bowel incontinence PSYCHIATRIC: Absent: anxiety, depression, suicidal or homicidal ideation, hallucinations. PHYSICAL EXAMINATION Vital Signs - 24 hr 11/10/19 14:35 Temperature 98.7 F Pulse Rate 110 H Respiratory 18 Rate Blood Pressure 111/78 O2 Sat by Pulse 100 Oximetry (%) GENERAL: Awake, alert, and fully oriented, in no acute distress. HEAD: Normal with no signs of trauma. EYES: Pupils equal, round and reactive to light, extraocular movements intact, sclera anicteric, conjunctiva clear. No lid lag. EARS, NOSE, THROAT: Ears normal, nares patent, oropharynx clear without exudates. Moist mucous membranes. NECK: Normal range of motion, supple without lymphadenopathy, JVD, or masses. LUNGS: Breath sounds equal, clear to auscultation bilaterally. No wheezes, and no crackles. No accessory muscle use. HEART: Regular rate and rhythm, normal S1 and S2 without murmur, rub or gallop. ABDOMEN: Soft, diffusely tender to palpation, worst at epigastrum and bilateral upper quadrants. Hypoactive bowel sounds X4 quadrants. No guarding, no rebound tenderness. No hepatomegaly or splenomegaly palpated. Negative Crespo's sign. MUSCULOSKELETAL: Normal range of motion at all joints. No bony deformities or tenderness. No CVA tenderness. UPPER EXTREMITIES: 2+ pulses, warm, well-perfused. No cyanosis. No clubbing. No peripheral edema. LOWER EXTREMITIES: 2+ pulses, warm, well-perfused. No calf tenderness. No peripheral edema. NEUROLOGICAL: Cranial nerves II-XII intact. Normal speech. Normal gait. PSYCHIATRIC: Cooperative. Good eye contact. Appropriate mood and affect. SKIN: Warm, dry, normal turgor, no rashes or lesions noted, normal capillary refill. ASSESSMENT/PLAN: Patient is a 49 year old female with history of iron deficiency anemia, presents with complaint of abdominal pain. Symptomatic cholelithiasis -Abdominal US reveals 2.5cm cholelith. Negative CBD dilation noted. -CT abdomen/ pelvis reveals no further intra-abdominal pathology -General Surgery recommendations appreciated. Will manage conservatively. -NPO -D5- NS at 100mL/ hour -Ofirmev 1000mg IV Q6H PRN for pain -Zofran 4mg IV X0goila for nausea Iron deficiency anemia -Currently stable. Continue outpatient Iron infusion -Monitor Hb/ Hct FEN -D5NS at 100mL/ hour -Follow BMP -NPO Prophylaxis - SCDs bilateral lower extremities in anticipation of surgical procedure Disposition -Admit to medical surgical floor. Visit type - Emergency Visit Emergency Visit: Yes ED Registration Date: 11/10/19 Care time: The patient presented to the Emergency Department on the above date and was hospitalized for further evaluation of their emergent condition. - New Patient This patient is new to me today: Yes Date on this admission: 11/10/19 - Critical Care Critical Care patient: No ATTENDING PHYSICIAN STATEMENT I saw and evaluated the patient. I reviewed the resident's note and discussed the case with the resident. I agree with the resident's findings and plan as documented. SUBJECTIVE: OBJECTIVE: ASSESSMENT AND PLAN:
[2019-11-10] MEDS ORDERED: DEXTROSE 5%-NORMAL SALINE 1,000 ML IV SCH (16:15)
[2019-11-10] MEDS ORDERED: ONDANSETRON 4 MG/2 ML VIAL ONE (16:48)
[2019-11-10] MEDS ORDERED: morphine SULFATE 4 MG/ML VIAL ONE (16:48)
--- NOTE | 2019-11-10 17:58 | PN ---
Teaching Attending Note Name of Resident: Victor M Jose ATTENDING PHYSICIAN STATEMENT I saw and evaluated the patient. I reviewed the resident's note and discussed the case with the resident. I agree with the resident's findings and plan as documented. SUBJECTIVE: This is a 49 year old woman with a history of iron deficiency anemia , gastritis who comes to the ED complaining of abdominal pain. The pain is located in the epigastrium and RUQ. It started 2 days ago after eating breakfast at [employer]. She has nausea and has been vomiting bilious fluid. She has been unable to eat or drink. OBJECTIVE: Vital Signs Period Temp Pulse Resp BP Sys/Rogers Pulse Ox Last 24 Hr 98.7 F 97-110 18-18 111-124/73-78 96-100 HEART: S1S2, tachycardic LUNGS: Clear ABDOMEN: Soft, non-distended, (+) LUQ/RUQ/epigastric tenderness, normal BS EXTREMITIES: No edema Home Medications Medication Instructions Recorded NK [No Known Home Medication] 11/10/19 ASSESSMENT AND PLAN: This is a 49 year old woman with a history of iron deficiency anemia, gastritis who presented to the ED with abdominal pain, nausea, and vomiting x 2 days. 1. Symptomatic cholelithiasis - NPO - IV fluid - Pain control - Zofran as needed for nausea - Surgery consult 2. Iron-deficiency anemia - Hemoglobin stable
[2019-11-10] MEDS: ACETAMINOPHEN 1000 MG/100 ML VIAL (NON FORMULARY) IVPB PRN (19:34)
[2019-11-10] MEDS ORDERED: FLU VACCINE QUAD 60 MCG/0.5 ML (MDV 19-20) IM ONE (22:00)
[2019-11-11] MEDS: ACETAMINOPHEN 1000 MG/100 ML VIAL (NON FORMULARY) IVPB PRN (06:47)
[2019-11-11 08:02] LABS: HEMATOCRIT 33.6 % (32.4-45.2); HEMOGLOBIN 10.7 GM/dL (10.7-15.3); MCH 26.5 pg (25.7-33.7); MCHC 31.9 g/dl (32.0-36.0); MEAN CELL VOLUME 82.9 fl (80-96); MEAN PLT VOLUME 9.7 fl (7.5-11.1); PLATELET COUNT 280 K/MM3 (134-434); RBC 4.05 M/mm3 (3.60-5.2); WHITE BLOOD COUNT 4.4 K/mm3 (4.0-10.0)
[2019-11-11 08:20] LABS: INR 1.11 (0.83-1.09); PROTHROMBIN TIME (PATIENT) 13.1 SEC (9.7-13.0)
[2019-11-11 08:23] LABS: ACTIVATED PTT 29.5 SECONDS (25.2-36.5)
[2019-11-11 08:32] LABS: ALBUMIN 2.8 g/dl (3.4-5.0); BILIRUBIN,TOTAL 0.3 mg/dL (0.2-1); BLOOD UREA NITROGEN 3.8 mg/dL (7-18); CALCIUM 7.8 mg/dL (8.5-10.1); CREATININE 0.5 mg/dL (0.55-1.3); MAGNESIUM 2.3 mg/dL (1.8-2.4); POTASSIUM 3.4 mmol/L (3.5-5.1); TOT PROT 5.4 g/dl (6.4-8.2)
--- NOTE | 2019-11-11 10:39 | PN ---
Physical Exam: SUBJECTIVE: Patient seen and examined. She says she is still having abdominal pain and nausea. Overnight she had temp of 100.2. OBJECTIVE: Vital Signs Period Temp Pulse Resp BP Sys/Rogers Pulse Ox Last 24 Hr 98.1 F-100.2 F 75-962 0-20 108-124/70-78 96-100 GENERAL: The patient is awake, alert, and fully oriented, in no acute distress. LUNGS: Breath sounds equal, clear to auscultation bilaterally, no wheezes, no crackles, no accessory muscle use. HEART: Regular rate and rhythm, S1, S2 without murmur, rub or gallop. ABDOMEN: Soft, (+) RUQ/epigastric tenderness, nondistended, normoactive bowel sounds, no guarding, no rebound, no hepatosplenomegaly, no masses. EXTREMITIES: 2+ pulses, warm, well-perfused, no edema. Laboratory Results - last 24 hr 11/11/19 11/11/19 11/11/19 06:35 06:35 06:35 WBC 4.4 RBC 4.05 Hgb 10.7 Hct 33.6 MCV 82.9 MCH 26.5 MCHC 31.9 L RDW 22.0 H Plt Count 280 D MPV 9.7 PT with INR 13.10 H INR 1.11 H PTT (Actin FS) 29.5 Sodium 143 Potassium 3.4 L Chloride 112 H Carbon Dioxide 25 Anion Gap 5 L BUN 3.8 L Creatinine 0.5 L Est GFR (CKD-EPI)AfAm 130.79 Est GFR (CKD-EPI)NonAf 112.85 Random Glucose 90 Calcium 7.8 L Phosphorus 2.0 L Magnesium 2.3 Total Bilirubin 0.3 AST 13 L ALT 11 L Alkaline Phosphatase 34 L Total Protein 5.4 L Albumin 2.8 L Blood Type Antibody Screen 11/11/19 06:35 WBC RBC Hgb Hct MCV MCH MCHC RDW Plt Count MPV PT with INR INR PTT (Actin FS) Sodium Potassium Chloride Carbon Dioxide Anion Gap BUN Creatinine Est GFR (CKD-EPI)AfAm Est GFR (CKD-EPI)NonAf Random Glucose Calcium Phosphorus Magnesium Total Bilirubin AST ALT Alkaline Phosphatase Total Protein Albumin Blood Type O POSITIVE Antibody Screen Negative Active Medications Generic Name Dose Route Start Last Admin Trade Name Freq PRN Reason Stop Dose Admin Acetaminophen 1,000 mg 11/10/19 16:14 11/11/19 06:47 Ofirmev Injection - IVPB 1,000 mg Q6H PRN Administration MODERATE PAIN Dextrose/Sodium Chloride 1,000 mls @ 100 mls/hr 11/10/19 16:15 11/10/19 19:35 D5-Ns - IV 100 mls/hr ASDIR MARLEE Administration Ondansetron HCl 4 mg 11/10/19 16:14 Zofran Injection IVPUSH Q6H PRN NAUSEA ASSESSMENT/PLAN: This is a 49 year old woman with a history of iron deficiency anemia, gastritis who presented to the ED with abdominal pain, nausea, and vomiting x 2 days. 1. Symptomatic cholelithiasis, possible acute cholecystitis - Patient had temp 100.2 overnight, and pain and nausea persist - Will start ceftriaxone, Flagyl - Clear liquid diet - Continue IV fluid - Pain control - Zofran as needed for nausea - Surgery consult 2. Hypokalemia - Replete potassium 3. Iron-deficiency anemia - Hemoglobin decreased 12.6 -> 10.7, likely secondary to IV fluid - Will continue monitor hemoglobin Visit type - Emergency Visit Emergency Visit: Yes ED Registration Date: 11/10/19 Care time: The patient presented to the Emergency Department on the above date and was hospitalized for further evaluation of their emergent condition. - New Patient This patient is new to me today: No - Critical Care Critical Care patient: No - Discharge Referral Referred to [facility] Med P.C.: No
[2019-11-11] MEDS: MORPHINE SULFATE 2 MG/ML VIAL IVPUSH PRN ×2 (12:40→19:59)
[2019-11-11] MEDS ORDERED: cefTRIAXone SODIUM 1 GM VIAL ONE (12:43)
[2019-11-11] MEDS ORDERED: DEXTROSE 5%-WATER - 50 ML IVPB ONE (12:44)
[2019-11-11] MEDS: D5-NS + 40 MEQ KCL - 40 MEQ/1,000 ML INFUS.BAG IV SCH (13:33)
[2019-11-11] MEDS: ONDANSETRON 4 MG/2 ML VIAL IVPUSH PRN ×2 (13:39→21:25)
[2019-11-11] MEDS: CEFTRIAXONE 1 GM in DEXTROSE 5%-WATER - 50 ML IVPB SCH (13:41)
--- NOTE | 2019-11-11 16:41 | PN ---
Progress Note (short form) - Note Progress Note: surgery 49f with 3 days ruq and epigastric pain. n/v. labs normal. ct and u/s show gallstones without signs of choleycstitis. on exam luq tenderness, minimal ruq tendernes Plan- not convinced this is acute cholecystitis. more likely gastitis. will get hida. will plan surgey if positive.
--- NOTE | 2019-11-11 17:39 | CONS ---
DATE OF CONSULTATION: 11/11/2019 REASON FOR CONSULTATION: Acute cholecystitis, cholelithiasis. This is an emergency room consultation requested by the emergency room physician. BRIEF HISTORY: This is a 49-year-old female presenting to the [facility] complaining of a 3-day history of right upper quadrant abdominal pain, nausea and vomiting. She had an ultrasound done of her gallbladder which showed gallstones without any signs of cholecystitis. She also had a CAT scan of her abdomen and pelvis which was also unremarkable but did show gallstones. Her pain has migrated to her epigastrium and left upper quadrant. She was admitted to the hospital, placed on antibiotic and she has been started on a clear liquid diet. Request was made for surgical evaluation. PAST MEDICAL HISTORY: Significant for iron-deficiency anemia. PAST SURGICAL HISTORY: Includes an ovarian cyst, a section and an appendectomy. SOCIAL HISTORY: Negative for tobacco, positive for occasional alcohol consumption. FAMILY HISTORY: Significant for a mother with breast cancer. ALLERGIES: She has no known drug allergies. MEDICATIONS: She takes no medications at home. REVIEW OF SYSTEMS: General: Denies fatigue and malaise. Cardiac: Denies chest pain or palpitations. Respiratory: Denies shortness of breath or wheeze. Gastrointestinal: As in HPI. Denies diarrhea, denies blood in her stool, denies blood in her vomit. Genitourinary: Denies dysuria. Musculoskeletal: Denies joint pain. Psychiatric: Denies depression or hearing voices. PHYSICAL EXAMINATION: General: This is a thin 49-year-old female in no distress. Vital Signs: She is afebrile. Her vital signs are stable. HEENT: Her head is normocephalic. The sclerae are anicteric. Neck: Supple. Chest: Clear. Abdomen: Soft. She has minimal right lower quadrant tenderness. She has moderate epigastrium and left upper quadrant tenderness. She has a well-healed Pfannenstiel incision. She has no obvious hernias. Extremities: Have no edema. LABORATORY: On review her white blood cell count is normal. There is no shift. Her chemistries are unremarkable with normal liver function tests. IMAGING: As in HPI. ASSESSMENT: This is a 49-year-old female with a 3-day history of constant upper abdominal pain with nausea and vomiting. Her CAT scan and ultrasound are unremarkable, only show gallstones. Her labs are unremarkable. Her exam is more impressive for tenderness in the left side than the right. PLAN: At this point I am not convinced that this is acute cholecystitis. I am more concerned for gastritis. We will get a HIDA scan. If the HIDA scan is positive , then we will make plans for cholecystectomy. If the HIDA scan is negative, then other sources of pain and nausea need to be investigated. The patient is currently nontoxic. DO NIMISHA URIBE/[id number] MTDD
[2019-11-11] MEDS: ACETAMINOPHEN 325 MG TABLET (FP) PO PRN (22:30)
[2019-11-12] MEDS: MORPHINE SULFATE 2 MG/ML VIAL IVPUSH PRN ×2 (02:30→06:47)
[2019-11-12] MEDS: D5-NS + 40 MEQ KCL - 40 MEQ/1,000 ML INFUS.BAG IV SCH ×2 (02:30→13:55)
[2019-11-12] MEDS: ONDANSETRON 4 MG/2 ML VIAL IVPUSH PRN ×2 (06:49→17:48)
[2019-11-12 07:48] LABS: BASO % 0.5 % (0-2.0); EOS % 4.6 % (0-4.5); HEMOGLOBIN 9.7 GM/dL (10.7-15.3); LYMPH % 29.6 % (8-40); MCH 26.5 pg (25.7-33.7); MCHC 32.4 g/dl (32.0-36.0); MEAN CELL VOLUME 81.8 fl (80-96); MEAN PLT VOLUME 9.3 fl (7.5-11.1); NEUT % 51.3 % (42.8-82.8); PLATELET COUNT 270 K/MM3 (134-434); RBC 3.67 M/mm3 (3.60-5.2); RDW 22.2 % (11.6-15.6); WHITE BLOOD COUNT 3.8 K/mm3 (4.0-10.0)
[2019-11-12 08:22] LABS: ALBUMIN 2.6 g/dl (3.4-5.0); BILIRUBIN,TOTAL 0.2 mg/dL (0.2-1); CALCIUM 7.5 mg/dL (8.5-10.1); CREATININE 0.4 mg/dL (0.55-1.3); POTASSIUM 4.2 mmol/L (3.5-5.1); TOT PROT 5.2 g/dl (6.4-8.2)
[2019-11-12 08:24] LABS: BLOOD UREA NITROGEN 2.3 mg/dL (7-18)
[2019-11-12] MEDS ORDERED: cefTRIAXone SODIUM 1 GM VIAL ONE (08:57)
[2019-11-12] MEDS ORDERED: DEXTROSE 5%-WATER - 50 ML IVPB ONE (08:58)
--- NOTE | 2019-11-12 09:10 | PN ---
Progress Note (short form) - Note Progress Note: 49yo F h/o RUQ pain and cholelithiasis, seen and examined at bedside. Pt states that she continues to have RUQ pain and n/v. Pt denies fever, chills, cp , sob. Pt remains NPO and is scheduled for HIDA scan. Last Vital Signs Temp Pulse Resp BP Pulse Ox 98.7 F 78 18 111/70 100 11/12/19 07:27 11/12/19 07:27 11/12/19 07:27 11/12/19 07:27 11/11/19 21:00 CBC, BMP 11/12/19 06:25 11/12/19 06:25 PE: Gen: A&OX 3 Resp: breathing comfortably Abd: soft, nondistented, diffuse abd pain worse in RUQ, +chen sign. Ext: no edema Problem List - Problems (1) Biliary colic Assessment/Plan: Plan -will follow up HIDA scan, will most likely need inpatient vs outpatient lap bebeto -cont NPO, IVF -pain control Pt discussed with Dr. Street who agrees with plan Code(s): K80.50 - CALCULUS OF BILE DUCT W/O CHOLANGITIS OR CHOLECYST W/O OBST
[2019-11-12] MEDS: CEFTRIAXONE 1 GM in DEXTROSE 5%-WATER - 50 ML IVPB SCH (10:00)
[2019-11-12 12:03] LABS: MAGNESIUM 2.3 mg/dL (1.8-2.4); PHOSPHOROUS 1.7 mg/dL (2.5-4.9)
[2019-11-12] MEDS: NAPH,MB-DB/K PH,MBDB POWDER PACKET PO SCH ×2 (13:55→21:49)
[2019-11-12] MEDS: PANTOPRAZOLE SODIUM 40 MG VIAL IVPUSH SCH (13:55)
--- NOTE | 2019-11-12 14:15 | PN ---
Progress Note (short form) - Note Progress Note: surgery hida unofficially negative for cholecystitis. if pain is persisting needs gi eval. can consider elective cholecystectomy once acute problem resolves.
--- NOTE | 2019-11-12 15:05 | PN ---
Physical Exam: SUBJECTIVE: Patient seen and examined at the bedside. Continues to complain of epigastric pain, nausea, poor appetite. Denies cp, sob, constipation, diarrhea, headaches, dizziness, lightheadedness, numbness, tingling, fever, chills. OBJECTIVE: Vital Signs Period Temp Pulse Resp BP Sys/Rogers Pulse Ox Last 24 Hr 98.3 F-98.8 F 70-84 18-20 105-115/69-83 100 GENERAL: The patient is awake, alert, and fully oriented, in mild acute distress. HEAD: Normal with no signs of trauma. EYES: PERRL, extraocular movements intact, sclera anicteric, conjunctiva clear. ENT: Oropharynx clear without exudates, moist mucous membranes. LUNGS: Breath sounds equal, clear to auscultation bilaterally, no wheezes, no crackles, no accessory muscle use. HEART: Regular rate and rhythm, S1, S2 without murmur, rub. ABDOMEN: Soft, moderately tender in the epigastric region, nondistended, normoactive bowel sounds, no guarding, no rebound, no masses. EXTREMITIES: 2+ pulses, warm, well-perfused, no edema. NEUROLOGICAL: Cranial nerves II through XII grossly intact. 5/5 muscle strength bilaterally upper and lower extremities. PSYCH: Upset mood regarding her pain. SKIN: Warm, dry, normal turgor, no rashes or lesions noted Laboratory Results - last 24 hr 11/12/19 11/12/19 06:25 06:25 WBC 3.8 L RBC 3.67 Hgb 9.7 L Hct 30.0 L MCV 81.8 MCH 26.5 MCHC 32.4 RDW 22.2 H Plt Count 270 MPV 9.3 Absolute Neuts (auto) 2.0 Neutrophils % 51.3 D Lymphocytes % 29.6 D Monocytes % 14.0 H D Eosinophils % 4.6 H D Basophils % 0.5 Nucleated RBC % 0 Sodium 144 Potassium 4.2 Chloride 116 H Carbon Dioxide 25 Anion Gap 4 L BUN 2.3 L* Creatinine 0.4 L Est GFR (CKD-EPI)AfAm 140.76 Est GFR (CKD-EPI)NonAf 121.45 Random Glucose 105 Calcium 7.5 L Phosphorus 1.7 L Magnesium 2.3 Total Bilirubin 0.2 AST 19 ALT 13 Alkaline Phosphatase 31 L Total Protein 5.2 L Albumin 2.6 L Active Medications Generic Name Dose Route Start Last Admin Trade Name Freq PRN Reason Stop Dose Admin Acetaminophen 650 mg 11/11/19 10:54 11/11/19 22:30 Tylenol - PO 650 mg Q4H PRN Administration PAIN LEVEL 1-5 Ceftriaxone Sodium 1 gm/ 50 mls @ 100 mls/hr 11/11/19 11:00 11/12/19 10:00 Dextrose IVPB 100 mls/hr DAILY MARLEE Administration Protocol Metronidazole 500 mg in 100 mls @ 100 mls/hr 11/11/19 11:00 11/12/19 10:30 Flagyl 500mg Premixed Ivpb - IVPB 100 mls/hr Q8H-IV MARLEE Administration Dextrose/Sodium Chloride 40 meq in 1,000 mls @ 100 mls/hr 11/11/19 11:00 12/31 13:55 Dextrose 5%-Normal Saline+40 Meq Kcl - IV Not Given ASDIR MARLEE Morphine Sulfate 1 mg 11/11/19 10:55 11/12/19 06:47 Morphine Sulfate IVPUSH 1 mg Q4H PRN Administration PAIN LEVEL 6-10 Ondansetron HCl 4 mg 11/10/19 16:14 11/12/19 06:49 Zofran Injection IVPUSH 4 mg Q6H PRN Administration NAUSEA Pantoprazole Sodium 40 mg 11/12/19 10:00 11/12/19 13:55 Protonix Iv IVPUSH 40 mg DAILY MARLEE Administration Potassium Phos/Sodium Phos 1 packet 11/12/19 12:15 11/12/19 13:55 Phos-Nak Packet - PO 11/12/19 22:01 1 packet BID MARLEE Administration ASSESSMENT/PLAN: Alise Salmon is a 49 year old female with history of iron deficiency anemia admitted for symptomatic epigastric pain and inability to have oral intake. Epigastric Pain/Nausea/Vomiting - Abdominal US reveals 2.5cm cholelith. Negative CBD dilation noted. - CT abdomen/ pelvis reveals no further intra-abdominal pathology - HIDA scan noting gallbladder filling, excluding cystic duct obstruction, delayed biliary enteric transit of tracer possibly secondary to chronic cholecystitis or biliary dyskenesia - General Surgery consulted, recs appreciated, no acute need for cholecystectomy , would require outpatient follow up - clear liquid diet as tolerated - D5-NS+40KCl at 100mL/ hour - Tylenol 650mg IV Q4H PRN and morphine for pain - Zofran 4mg IV [id number] for nausea - Protonix 40mg IV daily - GI consulted - ceftriaxone and flagyl for emperic coverage Iron deficiency anemia - Continue outpatient Iron infusion - Monitor Hb/Hct, trending down - FOBT ordered FEN - D5NS at 100mL/ hour - continue to monitor electrolytes and replete as necessary. Hypophosphatemia noted and repleted - clear liquid diet Prophylaxis - SCDs Disposition - continue to monitor on Med-surg Visit type - Emergency Visit Emergency Visit: Yes ED Registration Date: 11/10/19 Care time: The patient presented to the Emergency Department on the above date and was hospitalized for further evaluation of their emergent condition. - New Patient This patient is new to me today: Yes Date on this admission: 11/12/19 - Critical Care Critical Care patient: No
[2019-11-12] MEDS: ACETAMINOPHEN 325 MG TABLET (FP) PO PRN (17:48)
--- NOTE | 2019-11-12 19:05 | PN ---
Teaching Attending Note Name of Resident: Grover Vargas ATTENDING PHYSICIAN STATEMENT I saw and evaluated the patient. I reviewed the resident's note and discussed the case with the resident. I agree with the resident's findings and plan as documented. SUBJECTIVE: Complains of ongoing abdominal pain. OBJECTIVE: Afebrile, Hemodynamically Stable. Last Vital Signs Temp Pulse Resp BP Pulse Ox 98.3 F 70 18 112/73 100 11/12/19 13:00 11/12/19 13:00 11/12/19 13:11/12/19 13:11/11/19 21:00 HEENT: Atraumatic, Normocephalic Heart: S1, S2, RRR Lungs: Clear to auscultation Abdomen: Soft, epigastric tenderness. Bowel Sounds normal Extremities: No edema, no calf edema Laboratory Results - last 24 hr 11/12/19 11/12/19 06:25 06:25 WBC 3.8 L RBC 3.67 Hgb 9.7 L Hct 30.0 L MCV 81.8 MCH 26.5 MCHC 32.4 RDW 22.2 H Plt Count 270 MPV 9.3 Absolute Neuts (auto) 2.0 Neutrophils % 51.3 D Lymphocytes % 29.6 D Monocytes % 14.0 H D Eosinophils % 4.6 H D Basophils % 0.5 Nucleated RBC % 0 Sodium 144 Potassium 4.2 Chloride 116 H Carbon Dioxide 25 Anion Gap 4 L BUN 2.3 L* Creatinine 0.4 L Est GFR (CKD-EPI)AfAm 140.76 Est GFR (CKD-EPI)NonAf 121.45 Random Glucose 105 Calcium 7.5 L Phosphorus 1.7 L Magnesium 2.3 Total Bilirubin 0.2 AST 19 ALT 13 Alkaline Phosphatase 31 L Total Protein 5.2 L Albumin 2.6 L Current Medications Generic Name Dose Route Start Last Admin Trade Name Freq PRN Reason Stop Dose Admin Acetaminophen 650 mg 11/11/19 10:54 11/12/19 17:48 Tylenol - PO 650 mg Q4H PRN Administration PAIN LEVEL 1-5 Ceftriaxone Sodium 1 gm/ 50 mls @ 100 mls/hr 11/11/19 11:00 11/12/19 10:00 Dextrose IVPB 100 mls/hr DAILY MARLEE Administration Protocol Metronidazole 500 mg in 100 mls @ 100 mls/hr 11/11/19 11:00 11/12/19 17:48 Flagyl 500mg Premixed Ivpb - IVPB 100 mls/hr Q8H-IV MARLEE Administration Dextrose/Sodium Chloride 40 meq in 1,000 mls @ 100 mls/hr 11/11/19 11:00 12/31 13:55 Dextrose 5%-Normal Saline+40 Meq Kcl - IV Not Given ASDIR MARLEE Morphine Sulfate 1 mg 11/11/19 10:55 11/12/19 06:47 Morphine Sulfate IVPUSH 1 mg Q4H PRN Administration PAIN LEVEL 6-10 Ondansetron HCl 4 mg 11/10/19 16:14 11/12/19 17:48 Zofran Injection IVPUSH 4 mg Q6H PRN Administration NAUSEA Pantoprazole Sodium 40 mg 11/12/19 10:00 11/12/19 13:55 Protonix Iv IVPUSH 40 mg DAILY MARLEE Administration Potassium Phos/Sodium Phos 1 packet 11/12/19 12:15 11/12/19 13:55 Phos-Nak Packet - PO 11/12/19 22:01 1 packet BID MARLEE Administration Home Medications Medication Instructions Recorded Clomiphene Citrate 2 tab PO DAILY 11/12/19 Diclofenac Sodium [Diclo Gel] 11/12/19 ASSESSMENT/PLAN: 49 year old woman with a history of iron deficiency anemia, gastritis who presented to the ED with abdominal pain, nausea, and vomiting x 2 days. 1. Symptomatic cholelithiasis, possible acute cholecystitis vs gastritis Tmax 100.2, resolved. Empirically on ceftriaxone, Flagyl Surgery eval, unlikely acute cholecystitis, HIDA neg GI consulted. NPO MN for possible EGD 2. Hx of Iron deficiency Anemia Anemia work-up pending. DVT Px - SCDs. Heparin held pending Anemia work-up. GI Px - PPI
[2019-11-12] MEDS ORDERED: POTASSIUM PHOSPHATE 15 MM in SODIUM CHLORIDE 250 ML IVPB ONE (19:45)
--- NOTE | 2019-11-12 21:35 | CON.GI ---
Consult Consult Specialty:: Gastroenterology Referred by:: Dr. Grover Vargas Reason for Consultation:: abdominal pain - History of Present Illness Chief Complaint: epigastric pain radiating into the back History of Present Illness: 49F presents with 5 adi h/o inability to eat due to severe epigastric pain that radiates into both sides of her back. She has nausea and tells me that she vomited nonbloody material on one occasion several days ago. She also reports having diarrhea that subsided yesterday. She has undergone evaluation and surgical consultation for a gallstone which is now felt to be innocent. She has chronic abdominal pain and has had multiple endoscopies over the years at [facility]. She had an EGD and a colonoscopy with my partner Dr Feroz Haskins on 03/24/19. EGD revealed several gastric erosions. The colonoscopy revealed scattered right colon diverticulosis. She takes NSAIDs semiregularly and Tums for her pain - History Source History Provided By: Patient Limitations to Obtaining History: No Limitations - Past Medical History Gastrointestinal: Yes: Diverticulosis, Gastritis (03/24/19 EGD revealed gastric antral erosions attributed to NSAIDs) Hepatobiliary: Yes: Cholelithiasis Reproductive: Yes: Fibroids, Other (ovarian cysts) - Past Surgical History Past Surgical History: Yes: Appendectomy, Colonoscopy, , Upper Endoscopy - Alcohol/Substance Use Hx Alcohol Use: No History of Substance Use: reports: None - Smoking History Smoking history: Never smoked Have you smoked in the past 12 months: No Aproximately how many cigarettes per day: 0 - Social History Usual Living Arrangement: With Child ADL: Independent Occupation: unemployed mother of 4 Place of : Other ([employer]) Came to [place]year[place] age 21 Home Medications - Allergies Allergies/Adverse Reactions: Allergies Allergy/AdvReac Type Severity Reaction Status Date / Time No Known Allergies Allergy Verified 11/10/19 02:14 - Home Medications Home Medications: Ambulatory Orders Clomiphene Citrate 2 tab PO DAILY 11/12/19 Diclofenac Sodium [Diclo Gel] 11/12/19 Family Medical History Family Hx Cancer: Mother (breast cancer ) Family Hx Diabetes: Father Other Family History: brother and sister had "hepatitis" Review of Systems - Review of Systems Constitutional: reports: Chills, Diaphoresis, Lethargy, Loss of Appetite, Malaise, Weakness Eyes: reports: No Symptoms HENT: reports: No Symptoms Neck: reports: Stiffness Cardiovascular: reports: Shortness of Breath Gastrointestinal: reports: Abdominal Pain, Bloating, Diarrhea, Vomiting Genitourinary: reports: No Symptoms Musculoskeletal: reports: Back Pain, Joint Pain, Muscle Pain Physical Exam-GI Vital Signs: Vital Signs Temperature 98 F 11/12/19 16:25 Pulse Rate 86 11/12/19 16:25 Respiratory Rate 20 11/12/19 16:25 Blood Pressure 120/75 11/12/19 16:25 O2 Sat by Pulse Oximetry (%) 100 11/11/19 21:00 CBC,CMP WBC 3.8 K/mm3 (4.0-10.0) L 11/12/19 06:25 RBC 3.67 M/mm3 (3.60-5.2) 11/12/19 06:25 Hgb 9.7 GM/dL (10.7-15.3) L 11/12/19 06:25 Hct 30.0 % (32.4-45.2) L 11/12/19 06:25 MCV 81.8 fl (80-96) 11/12/19 06:25 MCH 26.5 pg (25.7-33.7) 11/12/19 06:25 MCHC 32.4 g/dl (32.0-36.0) 11/12/19 06:25 RDW 22.2 % (11.6-15.6) H 11/12/19 06:25 Plt Count 270 K/MM3 (134-434) 11/12/19 06:25 MPV 9.3 fl (7.5-11.1) 11/12/19 06:25 Absolute Neuts (auto) 2.0 K/mm3 (1.5-8.0) 11/12/19 06:25 Neutrophils % 51.3 % (42.8-82.8) D 11/12/19 06:25 Lymphocytes % 29.6 % (8-40) D 11/12/19 06:25 Monocytes % 14.0 % (3.8-10.2) H D 11/12/19 06:25 Eosinophils % 4.6 % (0-4.5) H D 11/12/19 06:25 Basophils % 0.5 % (0-2.0) 11/12/19 06:25 Nucleated RBC % 0 % (0-0) 11/12/19 06:25 Sodium 144 mmol/L (136-145) 11/12/19 06:25 Potassium 4.2 mmol/L (3.5-5.1) 11/12/19 06:25 Chloride 116 mmol/L (98-107) H 11/12/19 06:25 Carbon Dioxide 25 mmol/L (21-32) 11/12/19 06:25 Anion Gap 4 MMOL/L (8-16) L 11/12/19 06:25 BUN 2.3 mg/dL (7-18) L* 11/12/19 06:25 Creatinine 0.4 mg/dL (0.55-1.3) L 11/12/19 06:25 Est GFR (CKD-EPI)AfAm 140.76 11/12/19 06:25 Est GFR (CKD-EPI)NonAf 121.45 11/12/19 06:25 Random Glucose 105 mg/dL (74-106) 11/12/19 06:25 Calcium 7.5 mg/dL (8.5-10.1) L 11/12/19 06:25 Phosphorus 1.7 mg/dL (2.5-4.9) L 11/12/19 06:25 Magnesium 2.3 mg/dL (1.8-2.4) 11/12/19 06:25 Total Bilirubin 0.2 mg/dL (0.2-1) 11/12/19 06:25 AST 19 U/L (15-37) 11/12/19 06:25 ALT 13 U/L (13-61) 11/12/19 06:25 Alkaline Phosphatase 31 U/L (45-117) L 11/12/19 06:25 Total Protein 5.2 g/dl (6.4-8.2) L 11/12/19 06:25 Albumin 2.6 g/dl (3.4-5.0) L 11/12/19 06:25 Current Medications Generic Name Dose Route Start Last Admin Trade Name Freq PRN Reason Stop Dose Admin Acetaminophen 650 mg 11/11/19 10:54 11/12/19 17:48 Tylenol - PO 650 mg Q4H PRN Administration PAIN LEVEL 1-5 Ceftriaxone Sodium 1 gm/ 50 mls @ 100 mls/hr 11/11/19 11:00 11/12/19 10:00 Dextrose IVPB 100 mls/hr DAILY MARLEE Administration Protocol Metronidazole 500 mg in 100 mls @ 100 mls/hr 11/11/19 11:00 11/12/19 17:48 Flagyl 500mg Premixed Ivpb - IVPB 100 mls/hr Q8H-IV MARLEE Administration Dextrose/Sodium Chloride 40 meq in 1,000 mls @ 100 mls/hr 11/11/19 11:00 12/31 13:55 Dextrose 5%-Normal Saline+40 Meq Kcl - IV Not Given ASDIR MARLEE Potassium Phosphate 15 mm/ 255 mls @ 63.75 mls/hr 11/12/19 19:45 Sodium Chloride IVPB 11/12/19 23:44 ONCE ONE 15 MM/4 HR Morphine Sulfate 1 mg 11/11/19 10:55 11/12/19 06:47 Morphine Sulfate IVPUSH 1 mg Q4H PRN Administration PAIN LEVEL 6-10 Ondansetron HCl 4 mg 11/10/19 16:14 11/12/19 17:48 Zofran Injection IVPUSH 4 mg Q6H PRN Administration NAUSEA Pantoprazole Sodium 40 mg 11/12/19 10:00 11/12/19 13:55 Protonix Iv IVPUSH 40 mg DAILY MARLEE Administration Potassium Phos/Sodium Phos 1 packet 11/12/19 12:15 11/12/19 13:55 Phos-Nak Packet - PO 11/12/19 22:01 1 packet BID MARLEE Administration Constitutional: Yes: Well Nourished, Anxious Eyes: Yes: Conjunctiva Clear HENT: Yes: Atraumatic Neck: Yes: Supple Cardiovascular: Yes: Regular Rate and Rhythm Respiratory: Yes: CTA Bilaterally Gastrointestinal Inspection: Yes: Scars (healed Pfannensteil incision) ...Auscultate: Yes: Normoactive Bowel Sounds ...Palpate: Yes: Soft, Tenderness (epigastrium but no peritoneal signs) ...Percussion: Yes: Tympanitic ...Rectal Exam: Yes: Guaiac Negative (no masses, brown g negative stool) Labs: CBC, BMP 11/12/19 06:25 11/12/19 06:25 INR, PTT INR 1.11 (0.83-1.09) H 11/11/19 06:35 Imaging - Results Cat Scan: Report Reviewed ( Final Report CT ABDOMEN & PELVIS CT W/O CONTR Show Printer-Friendly Version Patient Name: Fritz Salmon : 1970 ID: [id number] Study Date: 10-Nov-2019 05:05 Jim Billings Name: FRITZ SALMON DEPARTMENT OF RADIOLOGY Phys: Ros Rothman RESIDENT : 1970 Age: 49 Sex: F [facility] Acct: [id number] Loc: [address] Exam Date: 11/10/19 Status: [place] [id number] Unit Number: [id number] EXAM#: TYPE/EXAM: RESULT: [id number] CT/ABDOMEN PELVIS CT W/O CONTR HISTORY PROVIDED: Diffuse abdominal pain TECHNIQUE: Sequential axial images were obtained from the domes of the diaphragm through the symphysis pubis. The study is limited without the use of any contrast material. The lung bases are clear. The liver, spleen, pancreas, adrenal glands and kidneys demonstrate no significant abnormalities. There is a gallstone noted within a nondistended gallbladder. There is no evidence of intra- abdominal or retroperitoneal lymphadenopathy or fluid collections. There is no evidence of pneumoperitoneum, bowel obstruction or intra-abdominal abscess. There is no CT evidence of acute appendicitis or diverticulitis. Examination of the pelvis demonstrates no evidence of pelvic masses, fluid collections or lymphadenopathy. The uterus is retroverted in position. It is bulky in appearance consistent with leiomyomata. There is no evidence of acute bony pathology. IMPRESSION: 1. Cholelithiasis. 2. Fibroid uterus. 3. No evidence of acute pathology within the abdomen or pelvis. Please see above discussion. Reported By: Isiah Brown MD [address] Technologist: Roberth Higgins Transcribed Date/Time: 11/10/1937 Escape Wheel Tooth Cutter: Isiah Brown Printed Date/Time: By: Signed by: Isiah Brown Signed on: 10-Nov-2019 08:38) Other: Other (Hida scan negative) Problem List - Problems (1) Abdominal pain Code(s): R10.9 - UNSPECIFIED ABDOMINAL PAIN (2) Gastritis determined by endoscopy Code(s): K29.70 - GASTRITIS, UNSPECIFIED, WITHOUT BLEEDING (3) Fibroid uterus Code(s): D25.9 - LEIOMYOMA OF UTERUS, UNSPECIFIED (4) Diverticulosis Code(s): K57.90 - DVRTCLOS OF INTEST, PART UNSP, W/O PERF OR ABSCESS W/O BLEED (5) Gallstone Code(s): K80.20 - CALCULUS OF GALLBLADDER W/O CHOLECYSTITIS W/O OBSTRUCTION Qualifiers: Cholecystitis presence: without cholecystitis Biliary obstruction: without biliary obstruction Qualified Code(s): K80.20 - Calculus of gallbladder without cholecystitis without obstruction (6) Vomiting Code(s): R11.10 - VOMITING, UNSPECIFIED Qualifiers: Vomiting type: unspecified Vomiting Intractability: non-intractable Nausea presence: with nausea Qualified Code(s): R11.2 - Nausea with vomiting, unspecified (7) Iron deficiency anemia Code(s): D50.9 - IRON DEFICIENCY ANEMIA, UNSPECIFIED Assessment/Plan Assessment: - Given that her gallstone sis not felt to be the source of her pain an EGD has been advised to exclude an ulcer, celiac disease, erosive gastritis and GERD. I have discussed EGD in detail and informed Fritz of the potential for such complications as perforation and hemorrhage. She has granted an informed consent - Diverticulosis of right colon - Cholelithiasis Plan: - NPO after midnight for EGD tomorrow - Continue the PPI
[2019-11-13] MEDS: MORPHINE SULFATE 2 MG/ML VIAL IVPUSH PRN ×3 (04:07→22:17)
[2019-11-13] MEDS: ONDANSETRON 4 MG/2 ML VIAL IVPUSH PRN (04:09)
[2019-11-13] MEDS: ACETAMINOPHEN 325 MG TABLET (FP) PO PRN ×2 (06:14→16:09)
[2019-11-13 07:30] LABS: INR 1.16 (0.83-1.09); PROTHROMBIN TIME (PATIENT) 13.7 SEC (9.7-13.0)
[2019-11-13 07:33] LABS: ACTIVATED PTT 31.3 SECONDS (25.2-36.5)
[2019-11-13 08:01] LABS: BLOOD UREA NITROGEN 4.2 mg/dL (7-18); CALCIUM 8.1 mg/dL (8.5-10.1); CREATININE 0.4 mg/dL (0.55-1.3); MAGNESIUM 2.4 mg/dL (1.8-2.4); PHOSPHOROUS 2.9 mg/dL (2.5-4.9); POTASSIUM 3.9 mmol/L (3.5-5.1)
[2019-11-13 08:22] LABS: IRON SERUM 29 ug/dL (50-175); TOTAL IRON BINDING CAPACITY 289 ug/dL (250-450)
[2019-11-13] MEDS ORDERED: IRON SUCROSE INJECTION 300 MG in SODIUM CHLORIDE 235 ML IVPB ONE (09:00)
[2019-11-13] MEDS ORDERED: DEXTROSE 5%-WATER - 50 ML IVPB ONE (09:10)
[2019-11-13] MEDS ORDERED: cefTRIAXone SODIUM 1 GM VIAL ONE (09:10)
[2019-11-13] MEDS: CEFTRIAXONE 1 GM in DEXTROSE 5%-WATER - 50 ML IVPB SCH (09:25)
[2019-11-13 09:34] LABS: BASO % 1.3 % (0-2.0); EOS % 3.2 % (0-4.5); HEMATOCRIT 33.7 % (32.4-45.2); HEMOGLOBIN 10.7 GM/dL (10.7-15.3); LYMPH % 26.7 % (8-40); MCH 26.4 pg (25.7-33.7); MCHC 31.7 g/dl (32.0-36.0); MEAN CELL VOLUME 83.4 fl (80-96); MONO % 10.4 % (3.8-10.2); NEUT % 58.4 % (42.8-82.8); RBC 4.04 M/mm3 (3.60-5.2); RDW 22.2 % (11.6-15.6); WHITE BLOOD COUNT 5.5 K/mm3 (4.0-10.0)
[2019-11-13] MEDS: PANTOPRAZOLE SODIUM 40 MG VIAL IVPUSH SCH (09:34)
--- NOTE | 2019-11-13 12:53 | PN ---
Progress Note (short form) - Note Progress Note: GI Procedure Note: Please see EGD report. Erosive antral gastritis and a small postbulbar duodenal ulcer were found, likely related to NSAID usage. I have advised her to refrain from NSAIDs. Will advance diet and give pantoprazole 40mg BID and supplement with Mylanta. Will advance diet. No GI objections to discharge if diet is tolerated. Problem List - Problems (1) Abdominal pain Code(s): R10.9 - UNSPECIFIED ABDOMINAL PAIN (2) Gastritis determined by endoscopy Code(s): K29.70 - GASTRITIS, UNSPECIFIED, WITHOUT BLEEDING (3) Fibroid uterus Code(s): D25.9 - LEIOMYOMA OF UTERUS, UNSPECIFIED (4) Diverticulosis Code(s): K57.90 - DVRTCLOS OF INTEST, PART UNSP, W/O PERF OR ABSCESS W/O BLEED (5) Gallstone Code(s): K80.20 - CALCULUS OF GALLBLADDER W/O CHOLECYSTITIS W/O OBSTRUCTION Qualifiers: Cholecystitis presence: without cholecystitis Biliary obstruction: without biliary obstruction Qualified Code(s): K80.20 - Calculus of gallbladder without cholecystitis without obstruction (6) Vomiting Code(s): R11.10 - VOMITING, UNSPECIFIED Qualifiers: Vomiting type: unspecified Vomiting Intractability: non-intractable Nausea presence: with nausea Qualified Code(s): R11.2 - Nausea with vomiting, unspecified (7) Iron deficiency anemia Code(s): D50.9 - IRON DEFICIENCY ANEMIA, UNSPECIFIED
--- NOTE | 2019-11-13 13:19 | PN ---
Progress Note (short form) - Note Progress Note: GI Addendum: Would observe ability to tolerate meals at least until tomorrow morning before discharging. Discussed with the nurse. Problem List - Problems (1) Abdominal pain Code(s): R10.9 - UNSPECIFIED ABDOMINAL PAIN (2) Gastritis determined by endoscopy Code(s): K29.70 - GASTRITIS, UNSPECIFIED, WITHOUT BLEEDING (3) Fibroid uterus Code(s): D25.9 - LEIOMYOMA OF UTERUS, UNSPECIFIED (4) Diverticulosis Code(s): K57.90 - DVRTCLOS OF INTEST, PART UNSP, W/O PERF OR ABSCESS W/O BLEED (5) Gallstone Code(s): K80.20 - CALCULUS OF GALLBLADDER W/O CHOLECYSTITIS W/O OBSTRUCTION Qualifiers: Cholecystitis presence: without cholecystitis Biliary obstruction: without biliary obstruction Qualified Code(s): K80.20 - Calculus of gallbladder without cholecystitis without obstruction (6) Vomiting Code(s): R11.10 - VOMITING, UNSPECIFIED Qualifiers: Vomiting type: unspecified Vomiting Intractability: non-intractable Nausea presence: with nausea Qualified Code(s): R11.2 - Nausea with vomiting, unspecified (7) Iron deficiency anemia Code(s): D50.9 - IRON DEFICIENCY ANEMIA, UNSPECIFIED
[2019-11-13 13:46] LABS: ANISOCYTOSIS 0; MACROCYTOSIS 0
[2019-11-13 14:02] LABS: PLATELET ESTIMATE ADEQUATE
[2019-11-13] MEDS: MAG HYDROX/AL HYDROX/SIMETH 30 ML UNIT-DOSE CUP PO PRN ×2 (16:07→22:14)
--- NOTE | 2019-11-13 16:13 | PN ---
Teaching Attending Note Name of Resident: Grover Vargas ATTENDING PHYSICIAN STATEMENT I saw and evaluated the patient. I reviewed the resident's note and discussed the case with the resident. I agree with the resident's findings and plan as documented. SUBJECTIVE: Complains of ongoing abdominal pain. No fever/chills. No vomiting/ diarrhea. OBJECTIVE: Afebrile, Hemodynamically Stable. Last Vital Signs Temp Pulse Resp BP Pulse Ox 98.4 F 66 18 104/71 97 11/13/19 14:56 11/13/19 14:56 11/13/19 14:56 11/13/19 14:56 11/13/19 13:14 HEENT: Atraumatic, Normocephalic Heart: S1, S2, RRR Lungs: Clear to auscultation Abdomen: Soft, epigastric tenderness. Bowel Sounds normal Extremities: No edema, no calf edema Laboratory Results - last 24 hr 11/13/19 11/13/19 11/13/19 06:45 06:45 06:45 WBC 5.5 RBC 4.04 Hgb 10.7 Hct 33.7 MCV 83.4 MCH 26.4 MCHC 31.7 L RDW 22.2 H Plt Count No Result Required. Absolute Neuts (auto) 3.2 Neutrophils % 58.4 Lymphocytes % 26.7 Monocytes % 10.4 H Eosinophils % 3.2 Basophils % 1.3 Nucleated RBC % 0 Hypochromia 1+ Platelet Estimate Adequate Platelet Comment Mod plt clumping Polychromasia 1+ Poikilocytosis 1+ Anisocytosis 0 Microcytosis 0 Macrocytosis 0 [place] Cells 1+ Retic Count PT with INR INR PTT (Actin FS) Sodium 142 Potassium 3.9 Chloride 113 H Carbon Dioxide 25 Anion Gap 4 L BUN 4.2 L Creatinine 0.4 L Est GFR (CKD-EPI)AfAm 140.76 Est GFR (CKD-EPI)NonAf 121.45 Random Glucose 110 H Calcium 8.1 L Phosphorus 2.9 Magnesium 2.4 Iron 30 L TIBC Iron Saturation Unsaturated IBC Ferritin 13.7 C-Reactive Protein Total Amylase Lipase Vitamin B12 842 Serum Folate 20 H Ur [place] Porphobilinogen 11/13/19 11/13/19 11/13/19 06:45 06:45 06:45 WBC RBC Hgb Hct MCV MCH MCHC RDW Plt Count Absolute Neuts (auto) Neutrophils % Lymphocytes % Monocytes % Eosinophils % Basophils % Nucleated RBC % Hypochromia Platelet Estimate Platelet Comment Polychromasia Poikilocytosis Anisocytosis Microcytosis Macrocytosis [place] Cells Retic Count 1.24 D PT with INR INR PTT (Actin FS) Sodium Potassium Chloride Carbon Dioxide Anion Gap BUN Creatinine Est GFR (CKD-EPI)AfAm Est GFR (CKD-EPI)NonAf Random Glucose Calcium Phosphorus Magnesium Iron 29 L TIBC 289 Iron Saturation 10 L Unsaturated IBC 260 Ferritin C-Reactive Protein 1.3 H Total Amylase 129 H Lipase 823 H Vitamin B12 Serum Folate Ur [place] Porphobilinogen 11/13/19 11/13/19 06:45 06:45 WBC RBC Hgb Hct MCV MCH MCHC RDW Plt Count Absolute Neuts (auto) Neutrophils % Lymphocytes % Monocytes % Eosinophils % Basophils % Nucleated RBC % Hypochromia Platelet Estimate Platelet Comment Polychromasia Poikilocytosis Anisocytosis Microcytosis Macrocytosis [place] Cells Retic Count PT with INR 13.70 H INR 1.16 H PTT (Actin FS) 31.3 Sodium Potassium Chloride Carbon Dioxide Anion Gap BUN Creatinine Est GFR (CKD-EPI)AfAm Est GFR (CKD-EPI)NonAf Random Glucose Calcium Phosphorus Magnesium Iron TIBC Iron Saturation Unsaturated IBC Ferritin C-Reactive Protein Total Amylase Lipase Vitamin B12 Serum Folate Ur [place] Porphobilinogen Cancelled Current Medications Generic Name Dose Route Start Last Admin Trade Name Freq PRN Reason Stop Dose Admin Acetaminophen 650 mg 11/11/19 10:54 11/13/19 06:14 Tylenol - PO 650 mg Q4H PRN Administration PAIN LEVEL 1-5 Al Hydroxide/Mg Hydroxide 30 ml 11/13/19 12:53 Mylanta Oral Suspension - PO Q6H PRN DYSPEPSIA Dextrose/Sodium Chloride 40 meq in 1,000 mls @ 100 mls/hr 11/11/19 11:00 12/31 13:55 Dextrose 5%-Normal Saline+40 Meq Kcl - IV Not Given ASDIR MARLEE Morphine Sulfate 1 mg 11/11/19 10:55 11/13/19 09:25 Morphine Sulfate IVPUSH 1 mg Q4H PRN Administration PAIN LEVEL 6-10 Ondansetron HCl 4 mg 11/10/19 16:14 11/13/19 04:09 Zofran Injection IVPUSH 4 mg Q6H PRN Administration NAUSEA Pantoprazole Sodium 40 mg 11/13/19 22:00 Protonix - PO BID [facility] ASSESSMENT/PLAN: 49 year old woman with a history of iron deficiency anemia, gastritis who presented to the ED with abdominal pain, nausea, and vomiting x 2 days. 1. PUD s/p EGD today - Gastric Erosions/DU Surgery eval, unlikely acute cholecystitis, HIDA neg Seen by GI - recommend BID PPI, Gaviscon PRN. GI follow up as out-patient. Bx taken for Hpylori - results as out-patient. Advised to avoid NSAIDs. 2. Iron deficiency Anemia Ferritin 13, Iron Sat 10% s/p IV Venofer For FeSO4 supplementation on discharge. Medically optimized for discharge once tolerating oral intake s/p EGD
--- NOTE | 2019-11-13 17:49 | PN ---
Physical Exam: SUBJECTIVE: Patient seen and examined at the bedside. Patient stated that she continues to have trouble with eating and endorses epigastric pain. Denies further episodes of nausea and vomiting. She denies cp, sob, constipation, diarrhea, fever, chills, headaches, dizziness, lightheadedness. OBJECTIVE: Vital Signs Period Temp Pulse Resp BP Sys/Rogers Pulse Ox Last 24 Hr 98.2 F-98.6 F 62-83 12-20 95-111/60-76 97-99 GENERAL: The patient is awake, alert, and fully oriented, in mild acute distress. HEAD: Normal with no signs of trauma. EYES: PERRL, extraocular movements intact, sclera anicteric, conjunctiva clear. ENT: Oropharynx clear without exudates, moist mucous membranes. LUNGS: Breath sounds equal, clear to auscultation bilaterally, no wheezes, no crackles, no accessory muscle use. HEART: Regular rate and rhythm, S1, S2 without murmur, rub. ABDOMEN: Soft, mildly tender in the epigastric region, nondistended, normoactive bowel sounds, no guarding, no rebound, no masses. EXTREMITIES: 2+ pulses, warm, well-perfused, no edema. NEUROLOGICAL: Cranial nerves II through XII grossly intact. 5/5 muscle strength bilaterally upper and lower extremities. PSYCH: Appropriate mood and affect, improved from previous day. SKIN: Warm, dry, normal turgor, no rashes or lesions noted Laboratory Results - last 24 hr 11/13/19 11/13/19 11/13/19 06:45 06:45 06:45 WBC 5.5 RBC 4.04 Hgb 10.7 Hct 33.7 MCV 83.4 MCH 26.4 MCHC 31.7 L RDW 22.2 H Plt Count No Result Required. Absolute Neuts (auto) 3.2 Neutrophils % 58.4 Lymphocytes % 26.7 Monocytes % 10.4 H Eosinophils % 3.2 Basophils % 1.3 Nucleated RBC % 0 Hypochromia 1+ Platelet Estimate Adequate Platelet Comment Mod plt clumping Polychromasia 1+ Poikilocytosis 1+ Anisocytosis 0 Microcytosis 0 Macrocytosis 0 [place] Cells 1+ Retic Count PT with INR INR PTT (Actin FS) Sodium 142 Potassium 3.9 Chloride 113 H Carbon Dioxide 25 Anion Gap 4 L BUN 4.2 L Creatinine 0.4 L Est GFR (CKD-EPI)AfAm 140.76 Est GFR (CKD-EPI)NonAf 121.45 Random Glucose 110 H Calcium 8.1 L Phosphorus 2.9 Magnesium 2.4 Iron 30 L TIBC Iron Saturation Unsaturated IBC Ferritin 13.7 C-Reactive Protein Total Amylase Lipase Vitamin B12 842 Serum Folate 20 H Ur [place] Porphobilinogen 11/13/19 11/13/19 11/13/19 06:45 06:45 06:45 WBC RBC Hgb Hct MCV MCH MCHC RDW Plt Count Absolute Neuts (auto) Neutrophils % Lymphocytes % Monocytes % Eosinophils % Basophils % Nucleated RBC % Hypochromia Platelet Estimate Platelet Comment Polychromasia Poikilocytosis Anisocytosis Microcytosis Macrocytosis [place] Cells Retic Count 1.24 D PT with INR INR PTT (Actin FS) Sodium Potassium Chloride Carbon Dioxide Anion Gap BUN Creatinine Est GFR (CKD-EPI)AfAm Est GFR (CKD-EPI)NonAf Random Glucose Calcium Phosphorus Magnesium Iron 29 L TIBC 289 Iron Saturation 10 L Unsaturated IBC 260 Ferritin C-Reactive Protein 1.3 H Total Amylase 129 H Lipase 823 H Vitamin B12 Serum Folate Ur [place] Porphobilinogen 11/13/19 11/13/19 06:45 06:45 WBC RBC Hgb Hct MCV MCH MCHC RDW Plt Count Absolute Neuts (auto) Neutrophils % Lymphocytes % Monocytes % Eosinophils % Basophils % Nucleated RBC % Hypochromia Platelet Estimate Platelet Comment Polychromasia Poikilocytosis Anisocytosis Microcytosis Macrocytosis [place] Cells Retic Count PT with INR 13.70 H INR 1.16 H PTT (Actin FS) 31.3 Sodium Potassium Chloride Carbon Dioxide Anion Gap BUN Creatinine Est GFR (CKD-EPI)AfAm Est GFR (CKD-EPI)NonAf Random Glucose Calcium Phosphorus Magnesium Iron TIBC Iron Saturation Unsaturated IBC Ferritin C-Reactive Protein Total Amylase Lipase Vitamin B12 Serum Folate Ur [place] Porphobilinogen Cancelled Active Medications Generic Name Dose Route Start Last Admin Trade Name Freq PRN Reason Stop Dose Admin Acetaminophen 650 mg 11/11/19 10:54 11/13/19 16:09 Tylenol - PO 650 mg Q4H PRN Administration PAIN LEVEL 1-5 Al Hydroxide/Mg Hydroxide 30 ml 11/13/19 12:53 11/13/19 16:07 Mylanta Oral Suspension - PO 30 ml Q6H PRN Administration DYSPEPSIA Dextrose/Sodium Chloride 40 meq in 1,000 mls @ 100 mls/hr 11/11/19 11:00 12/31 13:55 Dextrose 5%-Normal Saline+40 Meq Kcl - IV Not Given ASDIR MARLEE Morphine Sulfate 1 mg 11/11/19 10:55 11/13/19 09:25 Morphine Sulfate IVPUSH 1 mg Q4H PRN Administration PAIN LEVEL 6-10 Ondansetron HCl 4 mg 11/10/19 16:14 11/13/19 04:09 Zofran Injection IVPUSH 4 mg Q6H PRN Administration NAUSEA Pantoprazole Sodium 40 mg 11/13/19 22:00 Protonix - PO BID [facility] ASSESSMENT/PLAN: Alise Salmon is a 49 year old female with history of iron deficiency anemia admitted for symptomatic epigastric pain and inability to have oral intake. Epigastric Pain/Nausea/Vomiting - Abdominal US reveals 2.5cm cholelith. Negative CBD dilation noted. - CT abdomen/ pelvis reveals no further intra-abdominal pathology - HIDA scan noting gallbladder filling, excluding cystic duct obstruction, delayed biliary enteric transit of tracer possibly secondary to chronic cholecystitis or biliary dyskenesia - General Surgery consulted, recs appreciated, no acute need for cholecystectomy , would require outpatient follow up - soft diet as tolerated - Tylenol 650mg IV Q4H PRN and morphine for pain - Zofran 4mg IV [id number] for nausea - Protonix 40mg PO bid - Gaviscon 30cc q4h prn - GI consulted, recs appreciated - underwent EGD noting multiple small erosions in the gastric antrum, small non- bleeding ulcer found in the 1st part of the duodenum - will need to avoid NSAIDs - f/u biopsies for h. pylori Iron deficiency anemia - low iron and low iron saturation - given Venofer - Continue outpatient Iron infusion - Monitor Hb/Hct, today improved - will need outpatient GI followup FEN - no standing fluids, encourage PO intake - continue to monitor electrolytes and replete as necessary. - soft diet Prophylaxis - SCDs Disposition - continue to monitor on Med-surg - stable for discharge upon tolerating diet Visit type - Emergency Visit Emergency Visit: Yes ED Registration Date: 11/10/19 Care time: The patient presented to the Emergency Department on the above date and was hospitalized for further evaluation of their emergent condition. - New Patient This patient is new to me today: No - Critical Care Critical Care patient: No
[2019-11-13] MEDS ORDERED: SODIUM CHLORIDE 1,000 ML IV STA (20:36)
--- NOTE | 2019-11-13 20:38 | RAPID ---
Physical Examination Vital Signs: Vital Signs Temperature 98.6 F 11/13/19 16:30 Pulse Rate 72 11/13/19 16:30 Respiratory Rate 20 11/13/19 16:30 Blood Pressure 105/73 11/13/19 16:30 O2 Sat by Pulse Oximetry (%) 97 11/13/19 13:14 Labs: CBC, BMP 11/13/19 06:45 11/13/19 06:45 Rapid Response - Rapid Response Assessment: S Rapid response was called overhead. When team arrived, patient was lying on the floor with nursing staff surrounding pt. It was reported that the patient was in the bathroom vomiting and began walking back to the bed. She suddenly felt lightheaded and the nursing services manager caught her before she fell on the floor and lost consciousness briefly. Patient did not hit her head. She was able to walk with assistance to the bed where she complained of epigastric/chest pain. O 137/80 85 100% A&Ox3, mild distress RRR no murmurs CTA Epigastric tenderness, NBS, non-distended A/P #syncope -EKG- no acute changes -troponin- negative -CBC- no leukocytosis -CMP -blood cx -IV bolus
[2019-11-13] MEDS ORDERED: ONDANSETRON 4 MG/2 ML VIAL IVPUSH ONE (20:45)
[2019-11-13 21:16] LABS: BASO % 0.6 % (0-2.0); EOS % 1.9 % (0-4.5); HEMATOCRIT 36.9 % (32.4-45.2); HEMOGLOBIN 11.6 GM/dL (10.7-15.3); LYMPH % 25.3 % (8-40); MCH 26.3 pg (25.7-33.7); MCHC 31.6 g/dl (32.0-36.0); MEAN CELL VOLUME 83.4 fl (80-96); MEAN PLT VOLUME 9.5 fl (7.5-11.1); MONO % 9.2 % (3.8-10.2); PLATELET COUNT 343 K/MM3 (134-434); RBC 4.42 M/mm3 (3.60-5.2); RDW 21.7 % (11.6-15.6); WHITE BLOOD COUNT 7.3 K/mm3 (4.0-10.0)
[2019-11-13 21:37] LABS: ALBUMIN 3.4 g/dl (3.4-5.0); ALK PHOS 37 U/L (45-117); ANION GAP 6 MMOL/L (8-16); BILIRUBIN,TOTAL 0.1 mg/dL (0.2-1); CALCIUM 8.9 mg/dL (8.5-10.1); CHLORIDE 111 mmol/L (98-107); CO2 27 mmol/L (21-32); CREATININE 0.6 mg/dL (0.55-1.3); GLUCOSE,RANDOM 104 mg/dL (74-106); POTASSIUM 4.2 mmol/L (3.5-5.1); SGOT/AST 23 U/L (15-37); SGPT/ALT 28 U/L (13-61); SODIUM 143 mmol/L (136-145); TOT PROT 6.6 g/dl (6.4-8.2)
[2019-11-13] MEDS: PANTOPRAZOLE 40 MG TABLET PO SCH (22:17)
[2019-11-13] MEDS: D5-NS + 40 MEQ KCL - 40 MEQ/1,000 ML INFUS.BAG IV SCH (22:21)
[2019-11-13] MEDS ORDERED: SODIUM CHLORIDE 1,000 ML IV SCH (22:45)
[2019-11-14] MEDS: ACETAMINOPHEN 325 MG TABLET (FP) PO PRN ×3 (01:58→22:00)
[2019-11-14 08:23] LABS: BLOOD UREA NITROGEN 4.9 mg/dL (7-18); CALCIUM 8.5 mg/dL (8.5-10.1); CREATININE 0.5 mg/dL (0.55-1.3); MAGNESIUM 2.6 mg/dL (1.8-2.4); PHOSPHOROUS 2.5 mg/dL (2.5-4.9); POTASSIUM 4.3 mmol/L (3.5-5.1)
[2019-11-14] MEDS: MAG HYDROX/AL HYDROX/SIMETH 30 ML UNIT-DOSE CUP PO PRN (09:13)
[2019-11-14] MEDS: PANTOPRAZOLE 40 MG TABLET PO SCH ×2 (09:15→21:52)
[2019-11-14 12:06] LABS: TRANSGLUTAMINASE IGA < 2 U/mL (0-3); TRANSGLUTAMINASE IGG < 2 U/mL (0-5)
--- NOTE | 2019-11-14 12:30 | PN ---
Physical Exam: SUBJECTIVE: Patient seen and examined at the bedside. Overnight events and rapid response is noted. Patient states that she continues to have poor appetite , has nausea and vomiting episodes, and has epigastric pain. She states that she does not want to eat because she fears that her pain will get worse and that she will vomit. Otherwise, denies cp, sob, constipation, diarrhea, fevers, chills, headaches, dizziness, lightheadedness, numbness, tingling. OBJECTIVE: Vital Signs Period Temp Pulse Resp BP Sys/Rogers Pulse Ox Last 24 Hr 97.6 F-99.0 F 62-83 12-20 95-124/60-78 97-99 GENERAL: The patient is awake, alert, and fully oriented, in mild acute distress. HEAD: Normal with no signs of trauma. EYES: PERRL, extraocular movements intact, conjunctiva clear. ENT: Oropharynx clear without exudates, moist mucous membranes. LUNGS: Breath sounds equal, clear to auscultation bilaterally, no wheezes, no crackles, no accessory muscle use. HEART: Regular rate and rhythm, S1, S2 without murmur, rub. ABDOMEN: Soft, tender in the epigastric region, nondistended, normoactive bowel sounds, no guarding, no rebound, no masses. EXTREMITIES: 2+ pulses, warm, well-perfused, no edema. NEUROLOGICAL: Cranial nerves II through XII grossly intact. 5/5 muscle strength bilaterally upper and lower extremities. PSYCH: Appropriate mood and affect. SKIN: Warm, dry, normal turgor, no rashes or lesions noted Laboratory Results - last 24 hr 11/13/19 11/13/19 11/13/19 06:45 06:45 20:37 WBC 7.3 RBC 4.42 Hgb 11.6 Hct 36.9 MCV 83.4 MCH 26.3 MCHC 31.6 L RDW 21.7 H Plt Count 343 D MPV 9.5 Absolute Neuts (auto) 4.6 Neutrophils % 63.0 Lymphocytes % 25.3 Monocytes % 9.2 Eosinophils % 1.9 Basophils % 0.6 Nucleated RBC % 0 Hypochromia 1+ Platelet Estimate Adequate Platelet Comment Mod plt clumping Polychromasia 1+ Poikilocytosis 1+ Anisocytosis 0 Microcytosis 0 Macrocytosis 0 [place] Cells 1+ Sodium Potassium Chloride Carbon Dioxide Anion Gap BUN Creatinine Est GFR (CKD-EPI)AfAm Est GFR (CKD-EPI)NonAf Random Glucose Lactic Acid Calcium Phosphorus Magnesium Total Bilirubin AST ALT Alkaline Phosphatase Troponin I Total Protein Albumin Ur [place] Porphobilinogen Cancelled POC Urine HCG, Qual Tiss Transglutamin IgG < 2 Tiss Transglutamin IgA < 2 11/13/19 11/13/19 11/13/19 20:37 20:37 23:20 WBC RBC Hgb Hct MCV MCH MCHC RDW Plt Count MPV Absolute Neuts (auto) Neutrophils % Lymphocytes % Monocytes % Eosinophils % Basophils % Nucleated RBC % Hypochromia Platelet Estimate Platelet Comment Polychromasia Poikilocytosis Anisocytosis Microcytosis Macrocytosis [place] Cells Sodium 143 Potassium 4.2 Chloride 111 H Carbon Dioxide 27 Anion Gap 6 L BUN 6.0 L Creatinine 0.6 Est GFR (CKD-EPI)AfAm 123.18 Est GFR (CKD-EPI)NonAf 106.28 Random Glucose 104 Lactic Acid 2.2 H* 1.4 Calcium 8.9 Phosphorus Magnesium Total Bilirubin 0.1 L AST 23 ALT 28 Alkaline Phosphatase 37 L Troponin I < 0.02 Total Protein 6.6 Albumin 3.4 Ur [place] Porphobilinogen POC Urine HCG, Qual Tiss Transglutamin IgG Tiss Transglutamin IgA 11/14/19 11/14/19 03:15 07:18 WBC RBC Hgb Hct MCV MCH MCHC RDW Plt Count MPV Absolute Neuts (auto) Neutrophils % Lymphocytes % Monocytes % Eosinophils % Basophils % Nucleated RBC % Hypochromia Platelet Estimate Platelet Comment Polychromasia Poikilocytosis Anisocytosis Microcytosis Macrocytosis [place] Cells Sodium 140 Potassium 4.3 Chloride 111 H Carbon Dioxide 25 Anion Gap 4 L BUN 4.9 L Creatinine 0.5 L Est GFR (CKD-EPI)AfAm 130.79 Est GFR (CKD-EPI)NonAf 112.85 Random Glucose 95 Lactic Acid Calcium 8.5 Phosphorus 2.5 Magnesium 2.6 H Total Bilirubin AST ALT Alkaline Phosphatase Troponin I Total Protein Albumin Ur [place] Porphobilinogen POC Urine HCG, Qual Negative Tiss Transglutamin IgG Tiss Transglutamin IgA Active Medications Generic Name Dose Route Start Last Admin Trade Name Freq PRN Reason Stop Dose Admin Acetaminophen 650 mg 11/14/19 09:45 Tylenol - PO Q4H PRN PAIN LEVEL 6-10 Al Hydroxide/Mg Hydroxide 30 ml 11/13/19 12:53 11/14/19 09:13 Mylanta Oral Suspension - PO 30 ml Q6H PRN Administration DYSPEPSIA Ondansetron HCl 4 mg 11/10/19 16:14 11/13/19 04:09 Zofran Injection IVPUSH 4 mg Q6H PRN Administration NAUSEA Pantoprazole Sodium 40 mg 11/13/19 22:00 11/14/19 09:15 Protonix - PO 40 mg BID MARLEE Administration IMAGING - Abdominal US reveals 2.5cm cholelith. Negative CBD dilation noted. - CT abdomen/ pelvis reveals no further intra-abdominal pathology - HIDA scan noting gallbladder filling, excluding cystic duct obstruction, delayed biliary enteric transit of tracer possibly secondary to chronic cholecystitis or biliary dyskenesia ASSESSMENT/PLAN: Alise Salmon is a 49 year old female with history of iron deficiency anemia admitted for symptomatic epigastric pain and inability to have oral intake. Epigastric Pain/Nausea/Vomiting - imaging as above - General Surgery consulted, recs appreciated, no acute need for cholecystectomy , would require outpatient follow up, spoken again to today regarding patient's unremitting pain and general surgery again noted that there is not acute need for surgical intervention - soft diet as tolerated with ensure - Tylenol 650mg IV Q4H PRN - Zofran 4mg IV [id number] for nausea - Protonix 40mg PO bid - Mylanta 30cc q6h prn - GI consulted, recs appreciated - underwent EGD noting multiple small erosions in the gastric antrum, small non- bleeding ulcer found in the 1st part of the duodenum - will need to avoid NSAIDs - f/u biopsies for h. pylori Iron deficiency anemia - low iron and low iron saturation - given Venofer - Continue outpatient Iron infusion - will have ferrous sulfate outpatient - Monitor Hb/Hct - will need outpatient GI followup FEN - no standing fluids, encourage PO intake - continue to monitor electrolytes and replete as necessary. - soft diet Prophylaxis - SCDs Disposition - continue to monitor on Med-surg - stable for discharge upon tolerating diet Visit type - Emergency Visit Emergency Visit: Yes ED Registration Date: 11/10/19 Care time: The patient presented to the Emergency Department on the above date and was hospitalized for further evaluation of their emergent condition. - New Patient This patient is new to me today: No - Critical Care Critical Care patient: No
--- NOTE | 2019-11-14 12:58 | PN ---
Teaching Attending Note Name of Resident: Grover Vargas ATTENDING PHYSICIAN STATEMENT I saw and evaluated the patient. I reviewed the resident's note and discussed the case with the resident. I agree with the resident's findings and plan as documented. SUBJECTIVE: Complains of ongoing abdominal pain, worse on eating. Lightheaded episode overnight. Questionable loss of consciousness. No fever/chills. OBJECTIVE: Afebrile, Hemodynamically Stable. Last Vital Signs Temp Pulse Resp BP Pulse Ox 98.0 F 74 18 111/78 99 11/14/19 09:00 11/14/19 09:00 11/14/19 09:00 11/14/19 09:00 11/13/19 21:00 Heart: S1, S2, RRR Lungs: Clear to auscultation Abdomen: Soft, epigastric tenderness. Bowel Sounds normal Extremities: No edema, no calf tenderness. Neuro - AAO x 3. Tone/Power normal all 4 extremities. Laboratory Results - last 24 hr 11/13/19 11/13/19 11/13/19 06:45 06:45 20:37 WBC 7.3 RBC 4.42 Hgb 11.6 Hct 36.9 MCV 83.4 MCH 26.3 MCHC 31.6 L RDW 21.7 H Plt Count 343 D MPV 9.5 Absolute Neuts (auto) 4.6 Neutrophils % 63.0 Lymphocytes % 25.3 Monocytes % 9.2 Eosinophils % 1.9 Basophils % 0.6 Nucleated RBC % 0 Hypochromia 1+ Platelet Estimate Adequate Platelet Comment Mod plt clumping Polychromasia 1+ Poikilocytosis 1+ Anisocytosis 0 Microcytosis 0 Macrocytosis 0 [place] Cells 1+ Sodium Potassium Chloride Carbon Dioxide Anion Gap BUN Creatinine Est GFR (CKD-EPI)AfAm Est GFR (CKD-EPI)NonAf Random Glucose Lactic Acid Calcium Phosphorus Magnesium Total Bilirubin AST ALT Alkaline Phosphatase Troponin I Total Protein Albumin Ur [place] Porphobilinogen Cancelled POC Urine HCG, Qual Tiss Transglutamin IgG < 2 Tiss Transglutamin IgA < 2 11/13/19 11/13/19 11/13/19 20:37 20:37 23:20 WBC RBC Hgb Hct MCV MCH MCHC RDW Plt Count MPV Absolute Neuts (auto) Neutrophils % Lymphocytes % Monocytes % Eosinophils % Basophils % Nucleated RBC % Hypochromia Platelet Estimate Platelet Comment Polychromasia Poikilocytosis Anisocytosis Microcytosis Macrocytosis [place] Cells Sodium 143 Potassium 4.2 Chloride 111 H Carbon Dioxide 27 Anion Gap 6 L BUN 6.0 L Creatinine 0.6 Est GFR (CKD-EPI)AfAm 123.18 Est GFR (CKD-EPI)NonAf 106.28 Random Glucose 104 Lactic Acid 2.2 H* 1.4 Calcium 8.9 Phosphorus Magnesium Total Bilirubin 0.1 L AST 23 ALT 28 Alkaline Phosphatase 37 L Troponin I < 0.02 Total Protein 6.6 Albumin 3.4 Ur [place] Porphobilinogen POC Urine HCG, Qual Tiss Transglutamin IgG Tiss Transglutamin IgA 11/14/19 11/14/19 03:15 07:18 WBC RBC Hgb Hct MCV MCH MCHC RDW Plt Count MPV Absolute Neuts (auto) Neutrophils % Lymphocytes % Monocytes % Eosinophils % Basophils % Nucleated RBC % Hypochromia Platelet Estimate Platelet Comment Polychromasia Poikilocytosis Anisocytosis Microcytosis Macrocytosis [place] Cells Sodium 140 Potassium 4.3 Chloride 111 H Carbon Dioxide 25 Anion Gap 4 L BUN 4.9 L Creatinine 0.5 L Est GFR (CKD-EPI)AfAm 130.79 Est GFR (CKD-EPI)NonAf 112.85 Random Glucose 95 Lactic Acid Calcium 8.5 Phosphorus 2.5 Magnesium 2.6 H Total Bilirubin AST ALT Alkaline Phosphatase Troponin I Total Protein Albumin Ur [place] Porphobilinogen POC Urine HCG, Qual Negative Tiss Transglutamin IgG Tiss Transglutamin IgA Current Medications Generic Name Dose Route Start Last Admin Trade Name Freq PRN Reason Stop Dose Admin Acetaminophen 650 mg 11/14/19 09:45 Tylenol - PO Q4H PRN PAIN LEVEL 6-10 Al Hydroxide/Mg Hydroxide 30 ml 11/13/19 12:53 11/14/19 09:13 Mylanta Oral Suspension - PO 30 ml Q6H PRN Administration DYSPEPSIA Ondansetron HCl 4 mg 11/10/19 16:14 11/13/19 04:09 Zofran Injection IVPUSH 4 mg Q6H PRN Administration NAUSEA Pantoprazole Sodium 40 mg 11/13/19 22:00 11/14/19 09:15 Protonix - PO 40 mg BID MARLEE Administration Home Medications Medication Instructions Recorded Clomiphene Citrate 2 tab PO DAILY 11/12/19 Ferrous Sulfate 325 mg PO DAILY #30 tablet 01/04/20 Mag Hydrox/Al Hydrox/Simeth 30 ml PO Q6H PRN #1 bottle 11/14/19 [Mylanta Oral Suspension -] Ondansetron HCl [Zofran] 8 mg PO Q8H PRN #90 tablet 11/14/19 Pantoprazole Sodium [Protonix -] 40 mg PO BID #60 tablet.ec 11/14/19 ASSESSMENT/PLAN: 49 year old woman with a history of iron deficiency anemia, gastritis who presented to the ED with abdominal pain, nausea, and vomiting x 2 days. 1. PUD s/p EGD today - Gastric Erosions/DU Surgery eval, unlikely acute cholecystitis, HIDA neg. Discussed with Dr. Street today - again he does not feel there is any surgical intervention to be had currently. He will follow as out-patient for possible elective cholecystectomy. Seen by GI - recommend BID PPI, Gaviscon PRN. GI/Surgery follow up as out-patient. Advised to avoid NSAIDs. 2. Iron deficiency Anemia Ferritin 13, Iron Sat 10% s/p IV Venofer For FeSO4 supplementation on discharge. Medically optimized for discharge once tolerating oral intake s/p EGD.
--- NOTE | 2019-11-14 15:49 | DS ---
Physical Exam: SUBJECTIVE: Patient seen and examined at the bedside. Overnight events and rapid response is noted. Patient states that she continues to have poor appetite , has nausea and vomiting episodes, and has epigastric pain. She states that she does not want to eat because she fears that her pain will get worse and that she will vomit. Otherwise, denies cp, sob, constipation, diarrhea, fevers, chills, headaches, dizziness, lightheadedness, numbness, tingling. OBJECTIVE: Vital Signs Period Temp Pulse Resp BP Sys/Rogers Pulse Ox Last 24 Hr 97.6 F-99.0 F 67-75 18-20 96-124/58-78 99 PHYSICAL EXAM GENERAL: The patient is awake, alert, and fully oriented, in mild acute distress. HEAD: Normal with no signs of trauma. EYES: PERRL, extraocular movements intact, conjunctiva clear. ENT: Oropharynx clear without exudates, moist mucous membranes. LUNGS: Breath sounds equal, clear to auscultation bilaterally, no wheezes, no crackles, no accessory muscle use. HEART: Regular rate and rhythm, S1, S2 without murmur, rub. ABDOMEN: Soft, tender in the epigastric region, nondistended, normoactive bowel sounds, no guarding, no rebound, no masses. EXTREMITIES: 2+ pulses, warm, well-perfused, no edema. NEUROLOGICAL: Cranial nerves II through XII grossly intact. 5/5 muscle strength bilaterally upper and lower extremities. PSYCH: Appropriate mood and affect. SKIN: Warm, dry, normal turgor, no rashes or lesions noted LABS Laboratory Results - last 24 hr 11/13/19 11/13/19 11/13/19 06:45 20:37 20:37 WBC 7.3 RBC 4.42 Hgb 11.6 Hct 36.9 MCV 83.4 MCH 26.3 MCHC 31.6 L RDW 21.7 H Plt Count 343 D MPV 9.5 Absolute Neuts (auto) 4.6 Neutrophils % 63.0 Lymphocytes % 25.3 Monocytes % 9.2 Eosinophils % 1.9 Basophils % 0.6 Nucleated RBC % 0 Sodium 143 Potassium 4.2 Chloride 111 H Carbon Dioxide 27 Anion Gap 6 L BUN 6.0 L Creatinine 0.6 Est GFR (CKD-EPI)AfAm 123.18 Est GFR (CKD-EPI)NonAf 106.28 Random Glucose 104 Lactic Acid Calcium 8.9 Phosphorus Magnesium Total Bilirubin 0.1 L AST 23 ALT 28 Alkaline Phosphatase 37 L Troponin I < 0.02 Total Protein 6.6 Albumin 3.4 Ur Neoga Porphobilinogen Cancelled POC Urine HCG, Qual Tiss Transglutamin IgG < 2 Tiss Transglutamin IgA < 2 11/13/19 11/13/19 11/14/19 20:37 23:20 03:15 WBC RBC Hgb Hct MCV MCH MCHC RDW Plt Count MPV Absolute Neuts (auto) Neutrophils % Lymphocytes % Monocytes % Eosinophils % Basophils % Nucleated RBC % Sodium Potassium Chloride Carbon Dioxide Anion Gap BUN Creatinine Est GFR (CKD-EPI)AfAm Est GFR (CKD-EPI)NonAf Random Glucose Lactic Acid 2.2 H* 1.4 Calcium Phosphorus Magnesium Total Bilirubin AST ALT Alkaline Phosphatase Troponin I Total Protein Albumin Ur Neoga Porphobilinogen POC Urine HCG, Qual Negative Tiss Transglutamin IgG Tiss Transglutamin IgA 11/14/19 07:18 WBC RBC Hgb Hct MCV MCH MCHC RDW Plt Count MPV Absolute Neuts (auto) Neutrophils % Lymphocytes % Monocytes % Eosinophils % Basophils % Nucleated RBC % Sodium 140 Potassium 4.3 Chloride 111 H Carbon Dioxide 25 Anion Gap 4 L BUN 4.9 L Creatinine 0.5 L Est GFR (CKD-EPI)AfAm 130.79 Est GFR (CKD-EPI)NonAf 112.85 Random Glucose 95 Lactic Acid Calcium 8.5 Phosphorus 2.5 Magnesium 2.6 H Total Bilirubin AST ALT Alkaline Phosphatase Troponin I Total Protein Albumin Ur Neoga Porphobilinogen POC Urine HCG, Qual Tiss Transglutamin IgG Tiss Transglutamin IgA HOSPITAL COURSE: Alise Salmon is a 49 year old female with history of iron deficiency anemia admitted for symptomatic epigastric pain and inability to have oral intake. Patient had abdominal RUQ noting 2.5cm cholelithiasis with negative CBD dilation. CT abd/pelvis noted cholelithiasis and no further intra-abdominal pathology. General surgery was consulted and noted no acute need for cholecystectomy and would require outpatient follow up. HIDA scan showed gallbladder filling, excluding cystic duct obstruction, delayed biliary enteric transit of tracer possibly secondary to chronic cholecystitis or biliary dyskenesia. Patient was seen by GI who performed EGD which noted multiple small erosions in the gastric antrum, small non-bleeding ulcer found in the 1st part of the duodenum. Was recommended to have Protonix 40mg bid, Mylanta, anti- emetics, to tolerate soft diet and to follow up in the outpatient clinic. Patient was advised to avoid NSAIDS and to have a soft diet. By day of discharge, patient was able to tolerate a soft diet, pain was reduced , nausea and vomiting symptoms had abated. During admission, patient was found with iron deficiency, low iron saturation. Patient was given Venofer and will continue outpatient iron infusions and will follow up GI outpatient. Patient was advised to start Protonix 40mg, Mylanta, Zofran, ferrous sulfate, and to follow up with his PCP, GI, and general surgery. Was advised to have a repeat CBC within 2 weeks. Patient was in agreement with the plan and reiterated it. Patient was discharged in stable medical condition. Date of Admission:11/10/19 Date of Discharge: 11/14/19 Minutes to complete discharge: 35 Discharge Summary Problems reviewed: Yes Reason For Visit: SYMPTOMATIC Current Active Problems Fibroid uterus (Chronic) Gastritis determined by endoscopy (Chronic) Condition: Stable - Instructions Diet, Activity, Other Instructions: You were admitted to the hospital due have abdominal pain and difficulty eating. You were had a CT scan of your abdomen which showed that you had stones with gallbladder and had a scan to determine if there were any blockages in the ducts in your liver and gallbladder and were not found to have any blockages. You were seen by a surgeon who did not recommend any surgery at this time but recommended that you follow up with the surgeon in the outpatient clinic. You were seen by a cotton grader (stomach, liver, intestines doctor) who performed an EGD (camera procedure to look at the top of your digestive tract) and were found to have several ulcers and erosions in your stomach and small intestine and to follow up in the outpatient clinic. You were found to have low levels of iron in your blood. You were given iron infusions while you were here and are to start taking medication to improve your iron levels. MEDICATIONS STOP taking diclofenac. START taking pantoprazole 40mg twice a day. START taking Mylanta 30mL every 6 hours as needed for upset stomach. START taking ondansetron every 8 hours as needed for nausea. START taking ferrous sulfate 325mg every day. REFERRALS Please follow up with your primary care doctor, Jose Miguel Prado, within 1 week. Please follow up with the cotton grader, Dr. Aracelis Matos, within 1 week. Please follow up with the general surgeon, Dr. Grover Street, within 2 weeks. SPECIAL INSTRUCTIONS Avoid using any NSAID pain medications such as Advil and Alleve. Please get Hemoglobin/Hematocrit blood levels through your primary care doctor' s office in 2 weeks. If you have symptoms of worsening abdominal pain, complete inability to eat, fevers, bloody vomit, dark stools, bloody stools, or any other general feelings of unwellness, please call 911 or go your nearest emergency room. Referrals: Jose Miguel Prado PA [Primary Care Provider] - Aracelis Matos MD [Staff Physician] - Grover Street MD [Staff Physician] - Disposition: HOME - Home Medications Comprehensive Discharge Medication List: Ambulatory Orders Clomiphene Citrate 2 tab PO DAILY 11/12/19 Ferrous Sulfate 325 mg PO DAILY #30 tablet 11/14/19 Mag Hydrox/Al Hydrox/Simeth [Mylanta Oral Suspension -] 30 ml PO Q6H PRN #1 bottle 11/14/19 Ondansetron HCl [Zofran] 8 mg PO Q8H PRN #90 tablet 11/14/19 Pantoprazole Sodium [Protonix -] 40 mg PO BID #60 tablet.ec 11/14/19 Problem List - Problems (1) Abdominal pain Code(s): R10.9 - UNSPECIFIED ABDOMINAL PAIN (2) Gallstone Code(s): K80.20 - CALCULUS OF GALLBLADDER W/O CHOLECYSTITIS W/O OBSTRUCTION Qualifiers: Cholecystitis presence: without cholecystitis Biliary obstruction: without biliary obstruction Qualified Code(s): K80.20 - Calculus of gallbladder without cholecystitis without obstruction (3) Iron deficiency anemia Code(s): D50.9 - IRON DEFICIENCY ANEMIA, UNSPECIFIED (4) Biliary colic Code(s): K80.50 - CALCULUS OF BILE DUCT W/O CHOLANGITIS OR CHOLECYST W/O OBST (5) Vomiting Code(s): R11.10 - VOMITING, UNSPECIFIED Qualifiers: Vomiting type: unspecified Vomiting Intractability: non-intractable Nausea presence: with nausea Qualified Code(s): R11.2 - Nausea with vomiting, unspecified (6) Gastritis determined by endoscopy Code(s): K29.70 - GASTRITIS, UNSPECIFIED, WITHOUT BLEEDING This patient is new to me today: No Emergency Visit: Yes ED Registration Date: 11/10/19 Care time: The patient presented to the Emergency Department on the above date and was hospitalized for further evaluation of their emergent condition. Critical Care patient: No - Discharge Referral Referred to [facility] Med P.C.: No
--- NOTE | 2019-11-14 23:18 | EKG ---
Test Reason : Blood Pressure : / mmHG Vent. Rate : 070 BPM Atrial Rate : 070 BPM P-R Int : 128 ms QRS Dur : 084 ms QT Int : 374 ms P-R-T Axes : 067 051 045 degrees QTc Int : 403 ms NORMAL SINUS RHYTHM NORMAL ECG WHEN COMPARED WITH ECG OF 10-NOV-2019 06:06, T WAVE VARIATION Confirmed by SAMIR REED MD ([id number]) on 11/14/2019 11:18:32 PM Referred By: Confirmed By:SAMIR REED MD
[2019-11-15] MEDS: ACETAMINOPHEN 325 MG TABLET (FP) PO PRN ×2 (06:44→14:29)
[2019-11-15 09:19] LABS: BASO % 0.3 % (0-2.0); EOS % 2.3 % (0-4.5); HEMATOCRIT 35.2 % (32.4-45.2); HEMOGLOBIN 11.4 GM/dL (10.7-15.3); LYMPH % 23.1 % (8-40); MCH 26.5 pg (25.7-33.7); MCHC 32.3 g/dl (32.0-36.0); MEAN CELL VOLUME 81.9 fl (80-96); MEAN PLT VOLUME 9.6 fl (7.5-11.1); MONO % 9.4 % (3.8-10.2); NEUT % 64.9 % (42.8-82.8); PLATELET COUNT 340 K/MM3 (134-434); RBC 4.29 M/mm3 (3.60-5.2); RDW 22.3 % (11.6-15.6); WHITE BLOOD COUNT 8.7 K/mm3 (4.0-10.0)
[2019-11-15 10:01] LABS: BLOOD UREA NITROGEN 13.5 mg/dL (7-18); CALCIUM 9.1 mg/dL (8.5-10.1); CREATININE 0.4 mg/dL (0.55-1.3); MAGNESIUM 2.3 mg/dL (1.8-2.4); PHOSPHOROUS 3.8 mg/dL (2.5-4.9); POTASSIUM 4.1 mmol/L (3.5-5.1)
[2019-11-15] MEDS: PANTOPRAZOLE 40 MG TABLET PO SCH (10:09)
[2019-11-15 15:25] VITALS: BP 116/75; PULSE 88; TEMP 98
--- NOTE | 2019-11-15 21:12 | PN ---
Progress Note (short form) - Note Progress Note: SUBJECTIVE: Abdominal pain resolved. Tolerating oral intake. Questionable loss of consciousness. No fever/chills. OBJECTIVE: Afebrile, Hemodynamically Stable. Last Vital Signs Temp Pulse Resp BP Pulse Ox 98.0 F 88 18 116/75 96 11/15/19 15:24 11/15/19 15:24 11/15/19 15:24 11/15/19 15:24 11/14/19 21:00 Heart: S1, S2, RRR Lungs: Clear to auscultation Abdomen: Soft, mild epigastric tenderness. Bowel Sounds normal Extremities: No edema, no calf tenderness. Neuro - AAO x 3. Tone/Power normal all 4 extremities. Laboratory Results - last 24 hr 11/13/19 11/15/19 11/15/19 06:45 07:53 07:53 WBC 8.7 RBC 4.29 Hgb 11.4 Hct 35.2 MCV 81.9 MCH 26.5 MCHC 32.3 RDW 22.3 H Plt Count 340 MPV 9.6 Absolute Neuts (auto) 5.6 Neutrophils % 64.9 Lymphocytes % 23.1 Monocytes % 9.4 Eosinophils % 2.3 Basophils % 0.3 Nucleated RBC % 0 Sodium 140 Potassium 4.1 Chloride 107 Carbon Dioxide 26 Anion Gap 7 L BUN 13.5 Creatinine 0.4 L Est GFR (CKD-EPI)AfAm 140.76 Est GFR (CKD-EPI)NonAf 121.45 Random Glucose 91 Calcium 9.1 Phosphorus 3.8 Magnesium 2.3 Gastrin 14 Discharge Medications Medication Instructions Recorded Clomiphene Citrate 2 tab PO DAILY 11/12/19 Ferrous Sulfate 325 mg PO DAILY #30 tablet 11/14/19 Mag Hydrox/Al Hydrox/Simeth 30 ml PO Q6H PRN #1 bottle 11/14/19 [Mylanta Oral Suspension -] Ondansetron HCl [Zofran] 8 mg PO Q8H PRN #90 tablet 11/14/19 Pantoprazole Sodium [Protonix -] 40 mg PO BID #60 tablet.ec 11/14/19 ASSESSMENT/PLAN: 49 year old female with a history of iron deficiency anemia, gastritis who presented to the ED with abdominal pain, nausea, and vomiting x 2 days, found to have gastric erosions/duodenal ulcer. She was evaluated by surgery and found not to have acute cholecystitis requiring surgical intervention. 1. PUD s/p EGD today - Gastric Erosions/DU Surgery eval, unlikely acute cholecystitis, HIDA neg. Discussed with Dr. Street 11/14/19 - again he does not feel there is any surgical intervention to be had currently. He will follow as out-patient for possible elective cholecystectomy. Seen by GI - recommend BID PPI, Gaviscon PRN. GI/Surgery follow up as out-patient. Advised to avoid NSAIDs. 2. Iron deficiency Anemia Ferritin 13, Iron Sat 10% s/p IV Venofer For FeSO4 supplementation on discharge. Medically optimized for discharge as she is tolerating oral intake. GI and Surgery follow up as out-patient. Visit type - Emergency Visit Emergency Visit: Yes ED Registration Date: 11/10/19 Care time: The patient presented to the Emergency Department on the above date and was hospitalized for further evaluation of their emergent condition. - New Patient This patient is new to me today: No - Critical Care Critical Care patient: No - Discharge Referral Referred to [facility] Med P.C.: No
--- NOTE | 2019-11-16 12:11 | PATH ---
Surgical Pathology Report Patient Name: FRITZ HERNANDEZ [facility]. Rec. #: [id number] /Age/Gender: 1970 (Age: 49) / F Account: [id number] Location: [facility] MED/SURG Taken: 11/13/2019 Received: 11/13/2019 Reported: 11/16/2019 Physicians: Cher Ray MD Specimen(s) Received A: DUODENUM, SECOND PORTION AND DUODENAL BULB B: ANTRUM Clinical History Abdominal pain, rule out ulcer Postoperative diagnosis: duodenal ulcer, erosive gastritis Final Diagnosis A. DUODENUM, SECOND PORTION AND DUODENAL BULB, BIOPSY: DUODENAL MUCOSA WITH MODERATE TO SEVERE CHRONIC DUODENITIS, INTRAEPITHELIAL LYMPHOCYTOSIS, AND FOCAL VILLOUS BLUNTING. SEE COMMENT. B. STOMACH, ANTRUM, BIOPSY: GASTRIC ANTRAL MUCOSA WITH MILD CHRONIC GASTRITIS. IMMUNOHISTOCHEMICAL STAIN FOR H. PYLORI IS NEGATIVE. Comment: Part A, The finding is non-specific and may be seen in chronic duodenitis and gluten sensitive enteropathy (celiac disease). In the presence of chronic inflammation the findings are likely related to chronic duodenitis. Serological correlation is suggested, if clinically indicated. Electronically Signed Lolita Arboleda M.D. Gross Description A. Received in formalin, labeled "biopsy second portion of duodenum and duodenal bulb" are 3 leonard, irregular portions of soft tissue averaging 0.4 cm. in greatest dimension. The specimens are submitted in toto in one cassette. B. Received in formalin, labeled "biopsy antrum" are 3 leonard, irregular portions of soft tissue averaging 0.4 cm. in greatest dimension. The specimens are submitted in toto in one cassette. /11/13/2019 saudi/11/13/2019
== END 2019-11-15 18:00 | disposition home or self-care (01) | DRG 241 ==
LOC: JER 14:32 → JERBED 16:04 → J8W 18:18
PROVIDERS: ADMIT Internal Medicine
PROC: 0DB68ZX Excision of Stomach, Via Natural or Artificial Opening Endoscopic, Diagnostic (ICD-10-PCS; 2019-11-13)
PROC: 0DB98ZX Excision of Duodenum, Via Natural or Artificial Opening Endoscopic, Diagnostic (ICD-10-PCS; principal; 2019-11-13 12:45)
DX: K27.9 Peptic ulcer, site unspecified, unspecified as acute or chronic, without hemorrhage or perforation (principal); K29.50 Unspecified chronic gastritis without bleeding; R11.2 Nausea with vomiting, unspecified; K26.9 Duodenal ulcer, unspecified as acute or chronic, without hemorrhage or perforation; D50.9 Iron deficiency anemia, unspecified; K80.50 Calculus of bile duct without cholangitis or cholecystitis without obstruction; D25.9 Leiomyoma of uterus, unspecified; E87.6 Hypokalemia; R10.11 Right upper quadrant pain; K29.80 Duodenitis without bleeding
CPT/HCPCS: 36415; 71045-TC-FY; 74018-TC-FY; 78226-TC; 80048; 80053; 81025; 82150; 82607; 82728; 82746; 82941; 83516; 83540; 83550; 83605; 83690; 83735; 84100; 84110; 84484; 85025; 85027; 85044; 85610; 85730; 86140; 86850; 86900; 86901; 87040; 88305-TC; 93005; 93010; 97116-GP; 97161-GP; 99283-25; A9537; G0008; J0131; J1756; J7030; Q2036

== ENCOUNTER 2020-09-29 13:10 | Emergency (ER) | payer OTHER ==
[2020-09-29 13:17] VITALS: BP 146/85; PULSE 94; TEMP 98.9; BMI 21.2
== END 2020-09-29 15:11 | disposition home or self-care (01) ==
LOC: JER 13:10
DX: J11.1 Influenza due to unidentified influenza virus with other respiratory manifestations (principal)
CPT/HCPCS: 71045-TC-FY; 99283-25

== ENCOUNTER 2022-07-30 22:07 | Inpatient (IN) | payer OTHER ==
[2022-07-30] MEDS ORDERED: ONDANSETRON 4 MG/2 ML VIAL IVPUSH ONE (23:29)
[2022-07-30] MEDS ORDERED: ACETAMINOPHEN 1000 MG/100 ML BAG IVPB ONE (23:29)
[2022-07-30] MEDS ORDERED: FAMOTIDINE 20 MG/50 ML IVPB 20 MG/50 ML MG IVPB ONE ×2 (23:29→23:48)
[2022-07-30] MEDS ORDERED: LACTATED RINGERS SOLUTION 1000 ML INFUS.BAG IV ONE (23:29)
[2022-07-30] MEDS ORDERED: MAG HYDROX/AL HYDROX/SIMETH -MYLANTA- ORAL SUSPENSION PO ONE (23:29)
[2022-07-30] MEDS ORDERED: ONDANSETRON 4 MG/2 ML VIAL ONE (23:48)
[2022-07-30] MEDS ORDERED: ACETAMINOPHEN INJECTION 100 ML IVPB ONE (23:48)
[2022-07-30] MEDS ORDERED: MAG HYDROX/AL HYDROX/SIMETH 30 ML UNIT-DOSE CUP ONE (23:48)
[2022-07-31 00:34] LABS: BASO % 0.2 % (0-2.0); EOS % 0.8 % (0-4.5); HEMATOCRIT 38.3 % (32.4-45.2); HEMOGLOBIN 13.1 GM/dL (10.7-15.3); LYMPH % 14.2 % (8-40); MCH 31.7 pg (25.7-33.7); MCHC 34.1 g/dl (32.0-36.0); MEAN CELL VOLUME 92.8 fl (80-96); MEAN PLT VOLUME 8.7 fl (7.5-11.1); MONO % 5.3 % (3.8-10.2); NEUT % 79.5 % (42.8-82.8); PLATELET COUNT 317 10^3/uL (134-434); RBC 4.13 M/mm3 (3.60-5.2); RDW 14.2 % (11.6-15.6); WHITE BLOOD COUNT 9.7 K/mm3 (4.0-10.0)
[2022-07-31 00:40] LABS: EPI CELLS 8 /uL (0-25.1); HCG,QUALITATIVE URINE Negative; HYALINE CASTS 1 /uL (0-3.1); URINE APPEARANCE CLEAR; URINE BACTERIA 12 /uL (0-1359); URINE BILIRUBIN NEGATIVE (NEGATIVE); URINE COLOR YELLOW; URINE GLUCOSE (UA) NEGATIVE (NEGATIVE); URINE KETONE NEGATIVE (NEGATIVE); URINE LEUK ESTERASE TRACE (NEGATIVE); URINE NITRITE NEGATIVE (NEGATIVE); URINE PROTEIN NEGATIVE (NEGATIVE); URINE RBC 3 /uL (0-23.9); URINE UROBILINOGEN 0.2 mg/dL (0.2-1.0); URINE WBC 25 /uL (0-25.8)
[2022-07-31 00:54] LABS: CHLORIDE 110 mmol/L (98-107); SODIUM 142 mmol/L (136-145)
[2022-07-31 00:56] LABS: CALCIUM 8.9 mg/dL (8.5-10.1)
[2022-07-31 00:57] LABS: ALBUMIN 3.8 g/dl (3.4-5.0); ANION GAP 6 MMOL/L (8-16); BLOOD UREA NITROGEN 7.5 mg/dL (7-18); CO2 26 mmol/L (21-32); GLUCOSE,RANDOM 108 mg/dL (74-106); LIPASE 190 U/L (73-393); MAGNESIUM 2.2 mg/dL (1.8-2.4)
[2022-07-31 00:59] LABS: CREATININE 0.5 mg/dL (0.55-1.3); SGOT/AST 16 U/L (15-37)
[2022-07-31 01:00] LABS: SGPT/ALT 18 U/L (13-61)
[2022-07-31 01:01] LABS: BILIRUBIN,TOTAL 0.3 mg/dL (0.2-1); TOT PROT 6.8 g/dl (6.4-8.2)
[2022-07-31 01:02] LABS: ALK PHOS 44 U/L (45-117)
[2022-07-31] MEDS ORDERED: DICYCLOMINE HCL 20 MG/2 ML AMPUL IM ONE (03:02)
[2022-07-31] MEDS ORDERED: morphine SULFATE 4 MG/ML VIAL ONE (03:53)
[2022-07-31] MEDS ORDERED: DICYCLOMINE HCL 10 MG CAPSULE ONE (03:54)
[2022-07-31] MEDS ORDERED: morphine SULFATE 4 MG/ML VIAL IVPUSH ONE (04:12)
[2022-07-31] MEDS: ONDANSETRON 4 MG/2 ML VIAL IVPUSH PRN (10:51)
[2022-07-31] MEDS: PANTOPRAZOLE SODIUM 40 MG VIAL IVPUSH SCH ×2 (10:51→21:38)
[2022-07-31] MEDS: ENOXAPARIN NA (PORCINE) 40 MG/0.4 ML DISP.SYRIN SQ SCH (10:52)
[2022-07-31] MEDS: ACETAMINOPHEN 1000 MG/100 ML BAG IVPB PRN ×2 (12:16→21:37)
[2022-07-31] MEDS: SODIUM CHLORIDE 1,000 ML IV SCH (12:26)
[2022-07-31 15:57] VITALS: BMI 22.8
[2022-08-01] MEDS: ONDANSETRON 4 MG/2 ML VIAL IVPUSH PRN (00:41)
[2022-08-01] MEDS: SODIUM CHLORIDE 1,000 ML IV SCH ×2 (00:43→12:40)
[2022-08-01] MEDS ORDERED: morphine CARPU-JECT 2 MG/1 ML DISP.SYRIN IM ONE (01:06)
[2022-08-01] MEDS: ACETAMINOPHEN 1000 MG/100 ML BAG IVPB PRN (08:36)
[2022-08-01] MEDS: PANTOPRAZOLE SODIUM 40 MG VIAL IVPUSH SCH ×2 (09:21→21:20)
[2022-08-01] MEDS: ENOXAPARIN NA (PORCINE) 40 MG/0.4 ML DISP.SYRIN SQ SCH (09:21)
[2022-08-01 11:45] LABS: BASO % 0.4 % (0-2.0); EOS % 2.8 % (0-4.5); HEMATOCRIT 33.1 % (32.4-45.2); HEMOGLOBIN 11.5 GM/dL (10.7-15.3); LYMPH % 35.2 % (8-40); MCH 32.1 pg (25.7-33.7); MCHC 34.8 g/dl (32.0-36.0); MEAN CELL VOLUME 92.1 fl (80-96); MEAN PLT VOLUME 9.4 fl (7.5-11.1); MONO % 7.7 % (3.8-10.2); NEUT % 53.9 % (42.8-82.8); PLATELET COUNT 260 10^3/uL (134-434); RBC 3.59 M/mm3 (3.60-5.2); WHITE BLOOD COUNT 4.7 K/mm3 (4.0-10.0)
[2022-08-01 12:07] LABS: ALBUMIN 3.2 g/dl (3.4-5.0); BLOOD UREA NITROGEN 5.4 mg/dL (7-18); CALCIUM 8.3 mg/dL (8.5-10.1); MAGNESIUM 2.3 mg/dL (1.8-2.4)
[2022-08-01 12:09] LABS: CREATININE 0.6 mg/dL (0.55-1.3); PHOSPHOROUS 3.6 mg/dL (2.5-4.9)
[2022-08-01 12:11] LABS: BILIRUBIN,TOTAL 0.6 mg/dL (0.2-1); TOT PROT 5.6 g/dl (6.4-8.2)
[2022-08-01] MEDS: LACTATED RINGERS SOLUTION 1,000 ML/1,000 ML INFUS.BAG IV SCH (12:42)
[2022-08-01] MEDS ORDERED: KETOROLAC TROMETHAMINE 15 MG/ML VIAL IVPUSH PRN (16:08)
[2022-08-01] MEDS ORDERED: ACETAMINOPHEN 325 MG TABLET (FP) PO PRN (16:42)
[2022-08-01] MEDS: CEFOXITIN SODIUM 1 GM in DEXTROSE 5%-WATER - 100 ML IVPB SCH (18:57)
[2022-08-02] MEDS: LACTATED RINGERS SOLUTION 1,000 ML/1,000 ML INFUS.BAG IV SCH ×2 (00:31→12:38)
[2022-08-02] MEDS: CEFOXITIN SODIUM 1 GM in DEXTROSE 5%-WATER - 100 ML IVPB SCH ×3 (02:35→15:30)
[2022-08-02] MEDS: PANTOPRAZOLE SODIUM 40 MG VIAL IVPUSH SCH ×2 (10:11→21:12)
[2022-08-02] MEDS: ENOXAPARIN NA (PORCINE) 40 MG/0.4 ML DISP.SYRIN SQ SCH (10:11)
[2022-08-02 11:52] LABS: BASO % 0.5 % (0-2.0); EOS % 3.1 % (0-4.5); HEMATOCRIT 36.2 % (32.4-45.2); HEMOGLOBIN 11.8 GM/dL (10.7-15.3); LYMPH % 28.9 % (8-40); MCH 30.3 pg (25.7-33.7); MCHC 32.7 g/dl (32.0-36.0); MEAN CELL VOLUME 92.6 fl (80-96); MEAN PLT VOLUME 9.5 fl (7.5-11.1); MONO % 7.4 % (3.8-10.2); NEUT % 60.1 % (42.8-82.8); PLATELET COUNT 292 10^3/uL (134-434); RBC 3.91 M/mm3 (3.60-5.2); RDW 14.1 % (11.6-15.6); WHITE BLOOD COUNT 5.6 K/mm3 (4.0-10.0)
[2022-08-02 12:20] LABS: CREATININE 1.1 mg/dL (0.55-1.3); PHOSPHOROUS 3.4 mg/dL (2.5-4.9)
[2022-08-02 12:21] LABS: ALBUMIN 3.5 g/dl (3.4-5.0); BLOOD UREA NITROGEN 5.7 mg/dL (7-18)
[2022-08-02 12:22] LABS: BILIRUBIN,TOTAL 0.5 mg/dL (0.2-1)
[2022-08-02 12:23] LABS: MAGNESIUM 2.3 mg/dL (1.8-2.4)
[2022-08-02 12:24] LABS: CALCIUM 8.9 mg/dL (8.5-10.1)
[2022-08-02] MEDS ORDERED: BUPIVACAINE HCL/PF 0.25% (2.5MG/ML) 10 ML VIAL ONE (13:55)
[2022-08-02] MEDS ORDERED: ROCURONIUM BROMIDE 50 MG/5 ML SYRINGE ONE (14:00)
[2022-08-02] MEDS ORDERED: DEXAMETHASONE SOD PHOSPHATE 4 MG/1 ML VIAL ONE (14:00)
[2022-08-02] MEDS ORDERED: MIDAZOLAM HCL 2 MG/2 ML SINGLE DOSE VIAL ONE (14:00)
[2022-08-02] MEDS ORDERED: ONDANSETRON 4 MG/2 ML VIAL ONE ×2 (14:00→16:29)
[2022-08-02] MEDS ORDERED: PROPOFOL 20 ML ONE (14:00)
[2022-08-02] MEDS ORDERED: LIDOCAINE HCL/PF (2%) 40 MG/2 ML VIAL ONE (14:00)
[2022-08-02] MEDS ORDERED: BUPIVACAINE HCL/PF 0.25% (2.5MG/ML) 10 ML VIAL IJ ONE (14:58)
[2022-08-02] MEDS ORDERED: ACETAMINOPHEN INJECTION 100 ML IVPB ONE (15:33)
[2022-08-02] MEDS ORDERED: DESFLURANE GAS 240 ML BOTTLE IH ONE (15:38)
[2022-08-02] MEDS ORDERED: NEOSTIGMINE METHYLSULFATE 0.5 MG/ML - 10 ML MDV ONE (16:00)
[2022-08-02] MEDS ORDERED: GLYCOPYRROLATE 0.2 MG/1 ML VIAL ONE (16:01)
[2022-08-02] MEDS: ONDANSETRON 4 MG/2 ML VIAL IVPUSH PRN (16:30)
[2022-08-02] MEDS ORDERED: PROMETHAZINE HCL 25 MG/1 ML VIAL ONE (16:36)
[2022-08-02] MEDS ORDERED: ONDANSETRON 4 MG/2 ML VIAL IVPUSH PRN (16:41)
[2022-08-02] MEDS ORDERED: PROMETHAZINE HCL 25 MG/1 ML VIAL IVPUSH PRN (16:41)
[2022-08-02] MEDS ORDERED: LACTATED RINGERS SOLUTION 1,000 ML IV SCH (16:45)
[2022-08-02] MEDS ORDERED: SODIUM CHLORIDE 1,000 ML IV SCH (16:54)
[2022-08-02] MEDS ORDERED: PIPERACILLIN/TAZOB 3.375 GM 3.375 GM in DEXTROSE 5%-WATER - 50 ML IVPB SCH (18:00)
[2022-08-02] MEDS: ACETAMINOPHEN 1000 MG/100 ML BAG IVPB SCH (22:36)
[2022-08-03] MEDS: oxyCODONE HCL 5 MG TABLET PO PRN ×3 (01:01→21:02)
[2022-08-03] MEDS: ACETAMINOPHEN 1000 MG/100 ML BAG IVPB SCH ×2 (05:35→11:45)
[2022-08-03] MEDS: PANTOPRAZOLE SODIUM 40 MG VIAL IVPUSH SCH ×2 (09:28→21:02)
[2022-08-03] MEDS: ENOXAPARIN NA (PORCINE) 40 MG/0.4 ML DISP.SYRIN SQ SCH (09:28)
[2022-08-03] MEDS ORDERED: IBUPROFEN 800 MG/8 ML IJ IVPB SCH (09:30)
[2022-08-03 11:18] LABS: INR 1.22 (0.83-1.09); PROTHROMBIN TIME (PATIENT) 14.1 SEC (9.7-13.0)
[2022-08-03 11:19] LABS: BASO % 0.3 % (0-2.0); EOS % 0.1 % (0-4.5); HEMATOCRIT 35.3 % (32.4-45.2); HEMOGLOBIN 12.2 GM/dL (10.7-15.3); LYMPH % 15.6 % (8-40); MCH 32.1 pg (25.7-33.7); MCHC 34.5 g/dl (32.0-36.0); MEAN CELL VOLUME 92.9 fl (80-96); MEAN PLT VOLUME 9.9 fl (7.5-11.1); MONO % 8.4 % (3.8-10.2); NEUT % 75.6 % (42.8-82.8); PLATELET COUNT 267 10^3/uL (134-434); WHITE BLOOD COUNT 8.6 K/mm3 (4.0-10.0)
[2022-08-03 11:42] LABS: CALCIUM 9.4 mg/dL (8.5-10.1)
[2022-08-03 11:43] LABS: ALBUMIN 3.4 g/dl (3.4-5.0); BLOOD UREA NITROGEN 5.2 mg/dL (7-18); MAGNESIUM 2.1 mg/dL (1.8-2.4)
[2022-08-03 11:46] LABS: CREATININE 0.7 mg/dL (0.55-1.3); PHOSPHOROUS 4.1 mg/dL (2.5-4.9)
[2022-08-03 11:47] LABS: BILIRUBIN,TOTAL 0.7 mg/dL (0.2-1)
[2022-08-03] MEDS: LACTATED RINGERS SOLUTION 1,000 ML/1,000 ML INFUS.BAG IV SCH (12:26)
[2022-08-03] MEDS: DOCUSATE SODIUM 100 MG CAPSULE (FP) PO SCH ×2 (13:03→21:02)
[2022-08-03] MEDS: MELATONIN 5 MG TABLETS PO PRN (21:02)
[2022-08-03] MEDS: ONDANSETRON 4 MG/2 ML VIAL IVPUSH PRN (21:55)
[2022-08-04] MEDS: oxyCODONE HCL 5 MG TABLET PO PRN ×2 (00:38→06:01)
[2022-08-04] MEDS ORDERED: ACETAMINOPHEN 1000 MG/100 ML BAG IVPB ONE (01:37)
[2022-08-04] MEDS: DOCUSATE SODIUM 100 MG CAPSULE (FP) PO SCH ×3 (06:01→21:23)
[2022-08-04] MEDS: LACTATED RINGERS SOLUTION 1,000 ML/1,000 ML INFUS.BAG IV SCH ×2 (06:02→12:59)
[2022-08-04] MEDS: ONDANSETRON 4 MG/2 ML VIAL IVPUSH PRN (08:42)
[2022-08-04] MEDS: PANTOPRAZOLE SODIUM 40 MG VIAL IVPUSH SCH ×2 (10:21→21:23)
[2022-08-04] MEDS: ENOXAPARIN NA (PORCINE) 40 MG/0.4 ML DISP.SYRIN SQ SCH (10:21)
[2022-08-04 10:23] LABS: BASO % 0.5 % (0-2.0); HEMATOCRIT 32.8 % (32.4-45.2); HEMOGLOBIN 10.9 GM/dL (10.7-15.3); LYMPH % 25.4 % (8-40); MCH 30.8 pg (25.7-33.7); MCHC 33.1 g/dl (32.0-36.0); MEAN CELL VOLUME 92.8 fl (80-96); MEAN PLT VOLUME 9.4 fl (7.5-11.1); MONO % 8.1 % (3.8-10.2); PLATELET COUNT 267 10^3/uL (134-434); RBC 3.53 M/mm3 (3.60-5.2); RDW 14.5 % (11.6-15.6); WHITE BLOOD COUNT 8.4 K/mm3 (4.0-10.0)
[2022-08-04 11:01] LABS: CALCIUM 8.4 mg/dL (8.5-10.1)
[2022-08-04 11:02] LABS: ALBUMIN 3.1 g/dl (3.4-5.0); BLOOD UREA NITROGEN 4.3 mg/dL (7-18); MAGNESIUM 1.9 mg/dL (1.8-2.4)
[2022-08-04 11:05] LABS: CREATININE 0.6 mg/dL (0.55-1.3); PHOSPHOROUS 3.6 mg/dL (2.5-4.9)
[2022-08-04 11:07] LABS: BILIRUBIN,TOTAL 0.8 mg/dL (0.2-1); TOT PROT 5.8 g/dl (6.4-8.2)
[2022-08-04] MEDS ORDERED: ACETAMINOPHEN 1000 MG/100 ML BAG IVPB PRN (12:31)
[2022-08-04] MEDS ORDERED: KETOROLAC TROMETHAMINE 30 MG/1 ML VIAL IVPUSH ONE (12:38)
[2022-08-04] MEDS: ACETAMINOPHEN 1000 MG/100 ML BAG IVPB SCH ×2 (12:53→18:13)
[2022-08-04] MEDS: IBUPROFEN 800 MG/8 ML IJ IVPB SCH ×2 (15:01→19:38)
[2022-08-04] MEDS: MELATONIN 5 MG TABLETS PO PRN (21:23)
[2022-08-05] MEDS: ACETAMINOPHEN 1000 MG/100 ML BAG IVPB SCH ×2 (00:35→06:03)
[2022-08-05] MEDS: IBUPROFEN 800 MG/8 ML IJ IVPB SCH ×4 (01:12→18:40)
[2022-08-05] MEDS: DOCUSATE SODIUM 100 MG CAPSULE (FP) PO SCH ×3 (06:03→21:27)
[2022-08-05] MEDS: PANTOPRAZOLE SODIUM 40 MG VIAL IVPUSH SCH ×2 (09:42→21:27)
[2022-08-05] MEDS: ENOXAPARIN NA (PORCINE) 40 MG/0.4 ML DISP.SYRIN SQ SCH (09:42)
[2022-08-05] MEDS: LACTATED RINGERS SOLUTION 1,000 ML/1,000 ML INFUS.BAG IV SCH ×2 (12:08→16:47)
[2022-08-05] MEDS ORDERED: ACETAMINOPHEN 1000 MG/100 ML BAG IVPB ONE (17:39)
[2022-08-05] MEDS: ONDANSETRON 4 MG/2 ML VIAL IVPUSH PRN (17:55)
[2022-08-05] MEDS: MELATONIN 5 MG TABLETS PO PRN (21:27)
[2022-08-06] MEDS: ONDANSETRON 4 MG/2 ML VIAL IVPUSH PRN (00:03)
[2022-08-06] MEDS: LACTATED RINGERS SOLUTION 1,000 ML/1,000 ML INFUS.BAG IV SCH ×2 (00:40→13:18)
[2022-08-06] MEDS: IBUPROFEN 800 MG/8 ML IJ IVPB SCH ×2 (00:41→06:09)
[2022-08-06] MEDS: ACETAMINOPHEN 1000 MG/100 ML BAG IVPB PRN ×2 (03:48→09:44)
[2022-08-06] MEDS: DOCUSATE SODIUM 100 MG CAPSULE (FP) PO SCH ×2 (05:58→14:18)
[2022-08-06] MEDS: PANTOPRAZOLE SODIUM 40 MG VIAL IVPUSH SCH (09:43)
[2022-08-06] MEDS: ENOXAPARIN NA (PORCINE) 40 MG/0.4 ML DISP.SYRIN SQ SCH (09:44)
[2022-08-06 12:04] LABS: BASO % 0.4 % (0-2.0); EOS % 4.9 % (0-4.5); HEMATOCRIT 36.3 % (32.4-45.2); HEMOGLOBIN 12.3 GM/dL (10.7-15.3); MCH 31.6 pg (25.7-33.7); MEAN CELL VOLUME 92.8 fl (80-96); MEAN PLT VOLUME 9.1 fl (7.5-11.1); MONO % 7.5 % (3.8-10.2); NEUT % 60.2 % (42.8-82.8); PLATELET COUNT 272 10^3/uL (134-434); RBC 3.91 M/mm3 (3.60-5.2); RDW 14.1 % (11.6-15.6); WHITE BLOOD COUNT 5.6 K/mm3 (4.0-10.0)
[2022-08-06 12:26] LABS: CALCIUM 9.2 mg/dL (8.5-10.1)
[2022-08-06 12:27] LABS: ALBUMIN 3.6 g/dl (3.4-5.0); BLOOD UREA NITROGEN 4.9 mg/dL (7-18); MAGNESIUM 2.3 mg/dL (1.8-2.4)
[2022-08-06 12:30] LABS: CREATININE 0.5 mg/dL (0.55-1.3)
[2022-08-06 12:31] LABS: TOT PROT 6.5 g/dl (6.4-8.2)
[2022-08-06 12:32] LABS: BILIRUBIN,TOTAL 0.7 mg/dL (0.2-1)
[2022-08-06 13:57] VITALS: BP 112/73; PULSE 63; RESP 18; TEMP 97.9
== END 2022-08-06 18:45 | disposition home or self-care (01) | DRG 263 ==
LOC: JER 22:07 → UNDOADMOB 07-31 03:03 → JERBED 07-31 03:03 → J6S 07-31 10:19 → OBSVTOIN 07-31 12:04 → INTOOBSV 07-31 12:04 → OBSVTOIN 08-01 12:04 → J6S 08-01 12:04
PROVIDERS: ADMIT Internal Medicine; ATTEND Internal Medicine
PROC: 0FT44ZZ Resection of Gallbladder, Percutaneous Endoscopic Approach (ICD-10-PCS; principal; 2022-08-02 15:00)
DX: K80.00 Calculus of gallbladder with acute cholecystitis without obstruction (principal); K91.89 Other postprocedural complications and disorders of digestive system; K56.7 Ileus, unspecified; K21.9 Gastro-esophageal reflux disease without esophagitis; K29.70 Gastritis, unspecified, without bleeding; D64.9 Anemia, unspecified; K52.9 Noninfective gastroenteritis and colitis, unspecified; R51.9 Headache, unspecified; J45.909 Unspecified asthma, uncomplicated; Y83.8 Other surgical procedures as the cause of abnormal reaction of the patient, or of later complication, without mention of misadventure at the time of the procedure
CPT/HCPCS: 0241U-QW; 36415; 74018-TC-FY; 74177-TC; 76705-TC; 80053; 81003; 83605; 83690; 83735; 84100; 84443; 84484; 84703; 85025; 85610; 85730; 87086; 88304-TC; 93005; 93010; 94010; 94760; 99285-25; Q9967